=== PATIENT | female | born 1945 | race Caucasian/White ===

== ENCOUNTER → 2017-12-09 16:05 | Outpatient (CLI) | payer MEDICARE, OTHER, SELFPAY ==
[2017-12-09 17:06] LABS: Hemoglobin A1C% w Est Avg Glu 7.2 % (4.0-6.0)
[2017-12-09 17:45] LABS: BUN Creatinine Ratio 31.1 (6-22); Blood Urea Nitrogen 28 mg/dL (7-17); Calcium 9.9 mg/dL (8.4-10.2); Carbon Dioxide 29 mmol/L (22-32); Chloride 98 mmol/L (98-107); Estimated Glomerular Filt Rate > 60.0 mL/min (>60); Glucose 158 mg/dL (80-110); HEMOLYSIS < 15 (0-50); Potassium 4.5 mmol/L (3.4-5.1); Sodium 142 mmol/L (137-145)
== END ==
PROVIDERS: Family Provider Family Medicine; PCP Family Medicine; Visit Provider Family Medicine
DX: E11.9 Type 2 diabetes mellitus without complications (principal)
CPT/HCPCS: 36415; 80048; 83036

== ENCOUNTER → 2018-04-14 15:42 | Outpatient (CLI) | payer MEDICARE, OTHER, SELFPAY ==
[2018-04-14 16:28] LABS: Hemoglobin A1C% w Est Avg Glu 7.5 % (4.0-6.0)
== END ==
PROVIDERS: PCP Family Medicine; Visit Provider Family Medicine
DX: E11.9 Type 2 diabetes mellitus without complications (principal); E78.2 Mixed hyperlipidemia
CPT/HCPCS: 36415; 83036

== ENCOUNTER 2018-06-11 10:05 | Emergency (ER) | payer MEDICARE, OTHER, SELFPAY ==
[2018-06-11 10:15] VITALS: PULSE 65; RESP 18; O2SAT 99
== END 2018-06-11 11:46 | disposition left against medical advice (07) ==
LOC: ED 12:14
PROVIDERS: Family Provider Family Medicine; PCP Family Medicine
DX: R89.9 Unspecified abnormal finding in specimens from other organs, systems and tissues (principal)
CPT/HCPCS: 99281; 99282

== ENCOUNTER → 2018-07-21 15:02 | Outpatient (CLI) | payer MEDICARE, OTHER, SELFPAY ==
[2018-07-21 16:32] LABS: Hemoglobin A1C% w Est Avg Glu 7.9 % (4.0-6.0)
== END ==
PROVIDERS: Family Provider Family Medicine; PCP Family Medicine; Visit Provider Family Medicine
DX: E11.9 Type 2 diabetes mellitus without complications (principal)
CPT/HCPCS: 36415; 83036

== ENCOUNTER → 2018-11-20 16:45 | Outpatient (CLI) | payer MEDICARE, OTHER, SELFPAY ==
[2018-11-20 17:23] LABS: Add Manual Diff / Slide Review NO; Basophils Absolute Auto 0 /uL (0-100); Basophils Percent Auto 0.9 % (0-2); Eosinophils Absolute Auto 200 /uL (0-450); Eosinophils Percent Auto 4.4 % (2-4); Hematocrit 32.7 % (36-46); Hemoglobin 10.4 g/dL (12.0-16.0); Lymphocytes Absolute Auto 1900 /uL (1100-4500); Lymphocytes Percent Auto 36.5 % (25-40); Mean Corpuscular HGB Conc 31.7 % (30-36); Mean Corpuscular Volume 75.7 fL (80-100); Monocytes Absolute Auto 500 /uL (0-900); Monocytes Percent Auto 8.7 % (3-14); Neutrophils Absolute Auto 2600 /uL (1500-7000); Neutrophils Percent Auto 49.5 % (50-75); Platelet Count 263 X10^3/uL (150-400); Red Blood Cell Count 4.33 X10^6/uL (4.0-5.2); Red Cell Distribution Width 18.6 % (11.6-14.8); White Blood Cell Count 5.2 X10^3/uL (4.5-11.0)
[2018-11-20 17:31] LABS: Hemoglobin A1C% w Est Avg Glu 7.3 % (4.0-6.0)
[2018-11-20 17:50] LABS: Alanine Aminotransferase 13 IU/L (9-52); Albumin 4.3 g/dL (3.5-5.0); Albumin Globulin Ratio 1.5 (1.0-2.8); Alkaline Phosphatase 88 U/L (38-126); Aspartate Aminotransferase 20 IU/L (14-36); BUN Creatinine Ratio 24.5 (6-22); Bilirubin Total 0.4 mg/dL (0.2-1.3); Blood Urea Nitrogen 27 mg/dL (7-17); Calcium 8.9 mg/dL (8.4-10.2); Carbon Dioxide 27 mmol/L (22-32); Chloride 98 mmol/L (98-107); Estimated Glomerular Filt Rate 48.6 mL/min (>60); Globulin 2.8 g/dL (1.7-4.1); Glucose 163 mg/dL (80-110); HEMOLYSIS < 15 (0-50); Potassium 4.1 mmol/L (3.4-5.1); Sodium 139 mmol/L (137-145); Total Protein 7.1 g/dL (6.3-8.2)
[2018-11-20 19:01] LABS: Creatinine Urine Random 54.8 mg/dL
[2018-11-20 19:18] LABS: Microalbumin Urine Random 43.9 mg/dL (0-1.6)
== END ==
PROVIDERS: Family Provider Family Medicine; PCP Family Medicine; Visit Provider Family Medicine
DX: E11.9 Type 2 diabetes mellitus without complications (principal); I10 Essential (primary) hypertension; I25.10 Atherosclerotic heart disease of native coronary artery without angina pectoris; I48.91 Unspecified atrial fibrillation; Z87.19 Personal history of other diseases of the digestive system
CPT/HCPCS: 36415; 80053; 82043; 82570; 83036; 85025

== ENCOUNTER 2019-03-24 15:23 | Emergency (ER) | payer MEDICARE, OTHER, SELFPAY ==
[2019-03-24 15:34] VITALS: BP 192/73; PULSE 69; RESP 18; TEMP 36.8; O2SAT 99; BMI 48.6
--- NOTE | 2019-03-24 15:41 | DI.CT.S_ITS ---
PROCEDURE: CT HEAD/BRAIN WO CON INDICATIONS: pain glf TECHNIQUE: Noncontrast 4.5 mm thick angled axial sections acquired from the foramen magnum to the vertex, with coronal and sagittal reformats. For radiation dose reduction, the following was used: automated exposure control, adjustment of mA and/or kV according to patient size. COMPARISON: [facility], CT, HEAD WITHOUT CONTRAST, 07/06/2016, 13:15. FINDINGS: Image quality: Excellent. CSF spaces: Basal cisterns are patent. No extra-axial fluid collections. Ventricles are normal in size and shape. Brain: No midline shift. No intracranial masses or hemorrhage. Saldivar-white matter interface is normal. Skull and face: Calvarium and visualized facial bones are intact, without suspicious lesions. Hyperostosis frontalis is present. Sinuses: Visualized sinuses and mastoids are clear. IMPRESSION: Negative head CT. No acute intracranial hemorrhage. Dictated by: Johnny Pradhan M.D. on 03/24/2019 at 15:08 Approved by: Johnny Pradhan M.D. on 03/24/2019 at 15:09
--- NOTE | 2019-03-24 15:41 | DI.RAD.S_ITS ---
PROCEDURE: XR HAND RT MIN 3V INDICATIONS: pain sp glf TECHNIQUE: 3 views of the hand(s) acquired. COMPARISON: None. FINDINGS: Bones: No fractures or dislocations. Carpal bones are normally aligned. No suspicious bony lesions. Moderate degenerative changes are noted involving the joints of the thumb that are more prominent involving the basal joint. There is moderate ulnar minus variance by approximately 4 mm. Soft tissues: No suspicious soft tissue calcifications. Prominent soft tissue swelling is evident on the dorsal aspect of the hand. No unexpected radiopaque foreign bodies are appreciated. IMPRESSION: 1. No displaced fractures of the hand. 2. Prominent soft tissue swelling on the dorsal aspect of the hand. Dictated by: Johnny Pradhan M.D. on 03/24/2019 at 15:37 Approved by: Johnny Pradhan M.D. on 03/24/2019 at 15:38
--- NOTE | 2019-03-24 15:41 | DI.CT.S_ITS ---
PROCEDURE: CT CERVICAL SPINE WO CON INDICATIONS: glf TECHNIQUE: Noncontrast 3 mm thick sections acquired from the skull base to the T4 level. Sagittal and coronal reformats were then constructed. For radiation dose reduction, the following was used: automated exposure control, adjustment of mA and/or kV according to patient size. COMPARISON: None. FINDINGS: Image quality: Diagnostic. Bones: The cranial cervical, atlantoaxial, and cervicothoracic junctions are adequately visualized and the alignment through these regions is well-maintained. The vertebral body heights are well-maintained. There are no acute fractures or dislocations. No compression deformities are evident. No suspicious osseous lesions are identified. The bone mineralization is within normal limits. Moderate multilevel degenerative changes of the cervical spine are present demonstrating multilevel facet arthrosis (right greater than left) and areas of disc height loss. The odontoid appears intact. The imaged upper thoracic levels and portions of the chest are grossly unremarkable. Soft tissues: Prevertebral soft tissues are normal in thickness. No paravertebral hematomas. No apical pneumothoraces. There is heterogeneity and mild enlargement of the thyroid gland with multiple calcifications. IMPRESSION: 1. No acute intracranial hemorrhage. 2. Moderate degenerative changes of the cervical spine. 3. Heterogeneous thyroid gland. A nonemergent thyroid ultrasound is recommended. Dictated by: Johnny Pradhan M.D. on 03/24/2019 at 15:09 Approved by: Johnny Pradhan M.D. on 03/24/2019 at 15:13
[2019-03-24 16:43] LABS: Add Manual Diff / Slide Review NO; Basophils Absolute Auto 0 /uL (0-100); Basophils Percent Auto 0.6 % (0-2); Eosinophils Absolute Auto 100 /uL (0-450); Eosinophils Percent Auto 1.2 % (2-4); Hematocrit 34.5 % (36-46); Hemoglobin 11.5 g/dL (12.0-16.0); Lymphocytes Absolute Auto 1400 /uL (1100-4500); Lymphocytes Percent Auto 21.8 % (25-40); Mean Corpuscular HGB Conc 33.3 % (30-36); Mean Corpuscular Hemoglobin 26.1 PG (26-34); Mean Corpuscular Volume 78.3 fL (80-100); Monocytes Absolute Auto 500 /uL (0-900); Monocytes Percent Auto 8.3 % (3-14); Neutrophils Absolute Auto 4500 /uL (1500-7000); Neutrophils Percent Auto 68.1 % (50-75); Platelet Count 220 X10^3/uL (150-400); Red Blood Cell Count 4.41 X10^6/uL (4.0-5.2); Red Cell Distribution Width 16.8 % (11.6-14.8); White Blood Cell Count 6.6 X10^3/uL (4.5-11.0)
[2019-03-24] MEDS: TET,DIPH,PERTUSS(ACELL),VAC/PF 0.5 ML SYRINGE IM (17:11)
[2019-03-24] MEDS: HYDROCODONE/ACET 5/325 TABLET 1 TAB PO (17:12)
[2019-03-24 17:21] VITALS: BP 156/62; PULSE 58; RESP 16; O2SAT 97
--- NOTE | 2019-03-24 17:39 | ED.FALL ---
HPI - Fall <Farida Deleon NURSING ATTENDANT-BC - Last Filed: 03/24/19 19:28> General Chief Complaint: Trauma Stated Complaint: fall, R hand swollen, L leg bleeding, hit head Time Seen by Provider: 03/24/19 15:28 Source: patient and family Mode of arrival: Wheelchair Limitations: no limitations History of Present Illness HPI Narrative: The patient is a 74-year-old female nonsmoker with history of atrial fibrillation takes Xarelto who presents for chief complaint of a ground level fall. She states that she was getting out of bed, her foot got stock on the floor and she tipped over. She states she hit her head. She complains of neck pain. She also complains of right hand pain. She states that her left lower leg has a scratch, but she has no pain there. She denies any new incontinence of bowel, incontinence of bladder saddle anesthesia or numbness. She has not taken anything to feel better. She denies any loss of consciousness. She states she felt transiently nauseous earlier, but denies any current nausea vomiting diarrhea dizziness or lightheadedness. Given that the patient came in after hitting her head on a blood thinner, a modified trauma was activated for the patient. Related Data Home Medications Medication Instructions Recorded Confirmed diphenhydramine HCl [Benadryl 50 mg PO QIDP PRN #0 11/13/12 07/21/18 Allergy] CA PANTOTHENATE/FOLIC ACID/VIT 1 tab PO QDAY #0 tab 02/17/13 07/21/18 (MULTIVITAMIN) acetaminophen 1,000 mg PO PRN PRN #0 10/26/16 07/21/18 Previous Rx's Medication Instructions Recorded lidocaine 1 edgar TP BIDP PRN #15 gm 08/17/16 Alcohol Prep Pads pad QID #200 08/24/16 Glucose: Home Monitoring Kit kit ACHS #1 09/15/16 Disabled [address]ing Permit ea #1 12/27/16 Lancets #360 each 10/25/17 aspirin 81 mg tablet,delayed 81 mg PO QDAY #90 tab 10/25/17 release [xyzal] 5 mg PO PRN PRN #30 06/11/18 hydroxyzine HCl 25 mg tablet 0 mg PO SEE INSTRUCTIONS #30 tab 06/11/18 omeprazole 20 mg capsule,delayed 20 mg PO DAILY #7 cap 06/11/18 release Syringes: Ultra Fine Insulin #100 each 02/06/19 Syringe w/Needle True Metrix Glucose: Test Strips #360 each 02/06/19 chlorthalidone 25 mg tablet 25 mg PO QDAY #90 tab 02/06/19 diltiazem HCl 240 mg 240 mg PO QDAY #90 cap 02/06/19 capsule,extended release 24 hr insulin glargine 100 unit/mL 16 unit SUBCUT HS #30 ml 02/06/19 subcutaneous solution metformin 1,000 mg tablet 1,000 mg PO BIDCC #180 tab 02/06/19 metoprolol succinate 50 mg See Rx Instructions PO SEE 02/06/19 tablet,extended release 24 hr INSTRUCTIONS #315 tab primidone 50 mg tablet See Rx Instructions PO BID #90 tab 02/06/19 rivaroxaban 20 mg tablet 20 mg PO QDAY #90 tab 02/06/19 rosuvastatin 20 mg tablet 20 mg PO HS #90 tab 02/06/19 triamterene 75 1 tab PO QDAY #90 tab 02/06/19 mg-hydrochlorothiazide 50 mg tablet hydrocodone-acetaminophen [Stratford] 1 tab PO Q4-6H PRN #7 tab 03/24/19 Allergies Allergy/AdvReac Type Severity Reaction Status Date / Time albuterol Allergy Mild HIVES Verified 03/24/19 15:33 Sulfa (Sulfonamide Allergy Unknown Verified 03/24/19 15:33 Antibiotics) diazepam AdvReac Mild gives pt Verified 03/24/19 15:33 anxiety Review of Systems <aFrida Deleon [facility]- - Last Filed: 03/24/19 19:28> Review of Systems Narrative: GENERAL: Denies chills, fatigue, malaise, fever, sweats. HEENT: Denies sinus pain, ear pain, sore throat, difficulty swallowing, dizziness. RESPIRATORY: Denies dyspnea, cough, wheezing, hemoptysis, sputum. CARDIOVASCULAR: Denies chest pain, palpitations, orthopnea, edema, GASTROINTESTINAL: Denies nausea, vomiting, abdominal pain, diarrhea, constipation, melena. : Denies dysuria, frequency, incontinence, hematuria, urinary retention. MUSCULOSKELETAL: See HPI SKIN: See HPI NEUROLOGIC: Denies weakness, headache, numbness, change in speech, confusion, seizures, incoordination. PSYCHIATRIC: No concerning psychosocial issues. 12 point review of systems is negative except for those stated above Patient History <TOMMY Marquez - Last Filed: 03/24/19 19:28> Medical History Abnormal Pap smear of cervix (Chronic ~1999) Ankle pain (Chronic) Cardiac arrhythmia (Chronic ~1979) Cervical cancer (Chronic ~1999) Chicken pox (Resolved) Coronary artery disease (Chronic ~2007) Diabetes mellitus (Chronic) Eczema (Chronic) Endometriosis (Chronic ~1999) Foot pain (Chronic) GERD (gastroesophageal reflux disease) (Chronic ~1962) GI bleeding (Chronic) Hemorrhoid (Chronic) Hyperlipidemia (Chronic ~1983) Hypertension (Chronic ~1959) Myocardial infarction (Chronic ~09/2014) Osteoarthritis (Chronic) Pulmonary embolism (Chronic ~2014) Shoulder pain (Chronic) Venous insufficiency (Chronic) Surgical History Anesthesia (Resolved) History of angioplasty History of bladder suspension procedure Status post hysterectomy Status post laparoscopic cholecystectomy Surgical procedure planned (Resolved ~2014) Social History pets and animals: No education level: college occupational status: other tatianna/anglican: Moravian travel history: other leisure activities: other other: Watching tv seatbelt use: always water heater temp set < 120 deg: Yes working smoke detector in home: Yes fire extinguisher in home: No carbon monox detector in home: Yes firearms in home: No Smoking Status: Never smoker alcohol intake: never substance use type: does not use during the past year weight has: remained stable well-balanced diet: about half the time daily servings fruits/ve-4 caffeine: No eating out: 1-3 times/week Type(s) of exercise: walking and other duration: 15-30 minutes/day Substance Use Type: does not use Exam <TOMMY Marquez - Last Filed: 03/24/19 19:28> Narrative Exam Narrative: GENERAL: Morbidly obese female sitting on side of stretcher HEAD: Atraumatic. Normocephalic. No temporal or scalp tenderness. EYES: Pupils equal round and reactive. Extraocular motions intact. No scleral icterus. No injection or drainage. ENT: Nose without bleeding, purulent drainage or septal hematoma. Throat without erythema, tonsillar hypertrophy or exudate. Uvula midline. Airway patent. NECK: Trachea midline. No JVD or lymphadenopathy. Supple, nontender, no meningeal signs. CARDIOVASCULAR: Regular rate and rhythm without murmurs, gallops, or rubs. RESPIRATORY: Clear to auscultation. Breath sounds equal bilaterally. No wheezes, rales, or rhonchi. No cough. No increased respiratory effort. No accessory muscle use. GASTROINTESTINAL: Abdomen obese soft, non-tender, nondistended. No hepato-splenomegaly, or palpable masses. No guarding. EXTREMITIES: Pain to palpation of right hand, large hematoma ecchymosis area noted of on dorsal aspect of right hand. Positive radial pulse right hand. Decreased range of motion right fingers. No pain to palpation right wrist or elbow. No snuffbox tenderness to palpation. No pain to palpation of left arm. Patient states that pain bilateral legs baseline. BACK: General pain to palpation of C-spine midline, no pain new thoracic or lumbar spine palpation.. NEURO: AOx3. SKIN: Small abrasion noted on right chung. See extremity exam. Initial Vital Signs Initial Vital Signs: Vital Signs Temperature 98.3 F 03/24/19 15:34 Pulse Rate 69 03/24/19 15:34 Respiratory Rate 18 03/24/19 15:34 Blood Pressure 192/73 H 03/24/19 15:34 Pulse Oximetry 99 03/24/19 15:34 <Benedict Amaya DO - Last Filed: 03/25/19 07:42> Initial Vital Signs Initial Vital Signs: Vital Signs Temperature 98.3 F 03/24/19 15:34 Pulse Rate 69 03/24/19 15:34 Respiratory Rate 18 03/24/19 15:34 Blood Pressure 192/73 H 03/24/19 15:34 Pulse Oximetry 99 03/24/19 15:34 Procedures <TOMMY Marquez - Last Filed: 03/24/19 19:28> Orthopedic Splinting/Casting Injury #1: Side: right Upper Extremity Injury Location: hand Upper Extremity Immobilizer: wrist splint (black brace) Post splinting neuro exam: intact Post splinting vascular exam: intact Placed by: Nursing Course <TOMMY Marquez - Last Filed: 03/24/19 19:28> Orders Ordered: Discontinued Medications Hydrocodone Bitart/Acetaminophen (Stratford 5/325) 1 tab PO NOW ONE Stop: 03/24/19 17:04 Last Admin: 03/24/19 17:12 Dose: 1 tab Documented by: PAXTONSENLydia Hydrocodone Bitart/Acetaminophen (Vicodin Prepack) 1 bottle MISC SEEINSTR ONE Stop: 03/24/19 17:52 Last Admin: 03/24/19 18:00 Dose: 1 bottle Documented by: MEISENB Diphtheria/Tetanus/Acell Pertussis (Adacel) 0.5 ml IM .ONCE ONE Stop: 03/24/19 17:04 Last Admin: 03/24/19 17:11 Dose: 0.5 ml Documented by: PAXTONSENLydia Vital Signs Vital signs: Vital Signs - 8 hr 03/24/19 15:34 03/24/19 17:21 Temperature 98.3 F Pulse Rate 69 58 L Respiratory Rate 18 16 Blood Pressure 192/73 H Blood Pressure [Left Arm] 156/62 H Pulse Oximetry 99 97 <Benedict Amaya DO - Last Filed: 03/25/19 07:42> Orders Ordered: Discontinued Medications Hydrocodone Bitart/Acetaminophen (Stratford 5/325) 1 tab PO NOW ONE Stop: 03/24/19 17:04 Last Admin: 03/24/19 17:12 Dose: 1 tab Documented by: MEISENB Hydrocodone Bitart/Acetaminophen (Vicodin Prepack) 1 bottle MISC SEEINSTR ONE Stop: 03/24/19 17:52 Last Admin: 03/24/19 18:00 Dose: 1 bottle Documented by: MEISENB Diphtheria/Tetanus/Acell Pertussis (Adacel) 0.5 ml IM .ONCE ONE Stop: 03/24/19 17:04 Last Admin: 03/24/19 17:11 Dose: 0.5 ml Documented by: MEISENB Vital Signs Vital signs: Vital Signs - 8 hr 03/24/19 15:34 03/24/19 17:21 Temperature 98.3 F Pulse Rate 69 58 L Respiratory Rate 18 16 Blood Pressure 192/73 H Blood Pressure [Left Arm] 156/62 H Pulse Oximetry 99 97 MDM - Fall <TOMMY Marquez - Last Filed: 03/24/19 19:28> Lab Data Result diagrams: 03/24/19 16:42 Labs: Lab Results 03/24/19 Range/Units 16:42 WBC 6.6 (4.5-11.0) X10^3/uL RBC 4.41 (4.0-5.2) X10^6/uL Hgb 11.5 L (12.0-16.0) g/dL Hct 34.5 L (36-46) % MCV 78.3 L (80-100) fL MCH 26.1 (26-34) PG MCHC 33.3 (30-36) % RDW 16.8 H (11.6-14.8) % Plt Count 220 (150-400) X10^3/uL Neut % (Auto) 68.1 (50-75) % Lymph % (Auto) 21.8 L (25-40) % [place] % (Auto) 8.3 (3-14) % Eos % (Auto) 1.2 L (2-4) % Baso % (Auto) 0.6 (0-2) % Neut # (Auto) 4500 (0249-1634) /uL Lymph # (Auto) 1400 (7918-1904) /uL [place] # (Auto) 500 (0-900) /uL Eos # (Auto) 100 (0-450) /uL Baso # (Auto) 0 (0-100) /uL Imaging Data CT scan - head: Radiologist's impression: Dorcas Clement S 74 [address] 1945 [place] [address] CT Scan Report Signed Patient: Dorcas Clement [facility]#: [id number] : [id number]:[id number] Age/Sex: 74 / FDate of Service: 03/24/19 Loc: ED Accession Number: [id number] Procedure: CT head/brain wo con Ordering Provider: Farida Deleon PROCEDURE: CT HEAD/BRAIN WO CON INDICATIONS: pain glf TECHNIQUE: Noncontrast 4.5 mm thick angled axial sections acquired from the foramen magnum to the vertex, with coronal and sagittal reformats. For radiation dose reduction, the following was used: automated exposure control, adjustment of mA and/or kV according to patient size. COMPARISON: [facility], CT, HEAD WITHOUT CONTRAST, 07/06/2016, 13:15. FINDINGS: Image quality: Excellent. CSF spaces: Basal cisterns are patent. No extra-axial fluid collections. Ventricles are normal in size and shape. Brain: No midline shift. No intracranial masses or hemorrhage. Saldivar-white matter interface is normal. Skull and face: Calvarium and visualized facial bones are intact, without suspicious lesions. Hyperostosis frontalis is present. Sinuses: Visualized sinuses and mastoids are clear. IMPRESSION: Negative head CT. No acute intracranial hemorrhage. Dictated by: Johnny Pradhan M.D. on 03/24/2019 at 15:08 Approved by: Johnny Pradhan M.D. on 03/24/2019 at 15:09 Hand x-ray: Radiologist's impression: [place] [address] XRay Report Signed Patient: Dorcas Clement [facility]#: [id number] : [id number]:[id number] Age/Sex: 74 / FDate of Service: 03/24/19 Loc: ED Accession Number: [id number] Procedure: XR hand RT min 3V Ordering Provider: Farida Deleon- PROCEDURE: XR HAND RT MIN 3V INDICATIONS: pain sp glf TECHNIQUE: 3 views of the hand(s) acquired. COMPARISON: None. FINDINGS: Bones: No fractures or dislocations. Carpal bones are normally aligned. No suspicious bony lesions. Moderate degenerative changes are noted involving the joints of the thumb that are more prominent involving the basal joint. There is moderate ulnar minus variance by approximately 4 mm. Soft tissues: No suspicious soft tissue calcifications. Prominent soft tissue swelling is evident on the dorsal aspect of the hand. No unexpected radiopaque foreign bodies are appreciated. IMPRESSION: 1. No displaced fractures of the hand. 2. Prominent soft tissue swelling on the dorsal aspect of the hand. Dictated by: Johnny Pradhan M.D. on 03/24/2019 at 15:37 Approved by: Johnny Pradhan M.D. on 03/24/2019 at 15:38 CT C-spine: Radiologist's impression: [address] [address] [address] Scan Report Signed Patient: Dorcas Clement [facility]#: [id number] : 4Acct:[id number] Age/Sex: 74 / FDate of Service: 03/24/19 Loc: ED Accession Number: [id number] Procedure: CT cervical spine wo con Ordering Provider: Farida Deleon PROCEDURE: CT CERVICAL SPINE WO CON INDICATIONS: glf TECHNIQUE: Noncontrast 3 mm thick sections acquired from the skull base to the T4 level. Sagittal and coronal reformats were then constructed. For radiation dose reduction, the following was used: automated exposure control, adjustment of mA and/or kV according to patient size. COMPARISON: None. FINDINGS: Image quality: Diagnostic. Bones: The cranial cervical, atlantoaxial, and cervicothoracic junctions are adequately visualized and the alignment through these regions is well-maintained. The vertebral body heights are well-maintained. There are no acute fractures or dislocations. No compression deformities are evident. No suspicious osseous lesions are identified. The bone mineralization is within normal limits. Moderate multilevel degenerative changes of the cervical spine are present demonstrating multilevel facet arthrosis (right greater than left) and areas of disc height loss. The odontoid appears intact. The imaged upper thoracic levels and portions of the chest are grossly unremarkable. Soft tissues: Prevertebral soft tissues are normal in thickness. No paravertebral hematomas. No apical pneumothoraces. There is heterogeneity and mild enlargement of the thyroid gland with multiple calcifications. IMPRESSION: 1. No acute intracranial hemorrhage. 2. Moderate degenerative changes of the cervical spine. 3. Heterogeneous thyroid gland. A nonemergent thyroid ultrasound is recommended. Dictated by: Johnny Pradhan M.D. on 03/24/2019 at 15:09 Approved by: Johnny Pradhan M.D. on 03/24/2019 at 15:13 [facility] Narrative Medical decision making narrative: 74-year-old female blood thinners who presents after ground level fall and hitting her head. Modified trauma was activated given the patient's mechanism of injury and comorbidities. The patient did complain C-spine tenderness to palpation, so she was placed in a cervical collar. Imaging is obtained Ash, C-spine and her hand. Of her imaging came back with no acute findings. Patient was given Stratford and her hand was placed in a supportive brace given the large hematoma. I discussed at length rest ice compression elevation. I did give her no cough in the emergency department, which helped her pain a bit. Given the abrasion on the leg, the patient's tetanus was updated. The patient was able to ambulate around the emergency department after. She was discharged home with her family. I discussed at length that Stratford can be constipating and sedating, can increased fall risk. Discussed incidental finding of thyroid calcification and encouraged PCP follow-up. Encourage PCP follow-up in the next few days. She has no questions or concerns upon discharge and states understanding of return precautions of any acute concerns as well as following up with PCP in a few days. <Benedict Amaya, DO - Last Filed: 03/25/19 07:42> Lab Data Labs: Lab Results 03/24/19 Range/Units 16:42 WBC 6.6 (4.5-11.0) X10^3/uL RBC 4.41 (4.0-5.2) X10^6/uL Hgb 11.5 L (12.0-16.0) g/dL Hct 34.5 L (36-46) % MCV 78.3 L (80-100) fL MCH 26.1 (26-34) PG MCHC 33.3 (30-36) % RDW 16.8 H (11.6-14.8) % Plt Count 220 (150-400) X10^3/uL Neut % (Auto) 68.1 (50-75) % Lymph % (Auto) 21.8 L (25-40) % [place] % (Auto) 8.3 (3-14) % Eos % (Auto) 1.2 L (2-4) % Baso % (Auto) 0.6 (0-2) % Neut # (Auto) 4500 (5146-4652) /uL Lymph # (Auto) 1400 (9573-6436) /uL [place] # (Auto) 500 (0-900) /uL Eos # (Auto) 100 (0-450) /uL Baso # (Auto) 0 (0-100) /uL Discharge Plan Departure Patient Disposition: Home Clinical Impression: Fall from ground level, Hematoma, Acute neck pain Contusion Qualifiers: Encounter type: initial encounter Contusion area: hand Laterality: right Qualified Code(s): S60.221A - Contusion of right hand, initial encounter Discharge Date/Time: 03/24/19 18:29 Instructions: Exercises to Help Prevent Falls, DI for Contusion, DI for Hematoma (Bruise), DI for Neck Pain Activity Restrictions/Additional Instructions: Thank you for trusting us with your care today. Today we did x-rays of your hand, CT scan of your neck and head. All of your images came back normal today. Please use rest ice compression elevation especially on that large bruise on her hand. Please come back to emergency department for any acute concerns. Please follow up with primary care provider in the next few days Prescriptions: New hydrocodone-acetaminophen [Stratford] 5-325 mg tablet 1 tab PO Q4-6H PRN (Reason: pain) Qty: 7 RF: 0 No Action hydroxyzine HCl 25 mg tablet 0 mg PO SEE INSTRUCTIONS Qty: 30 RF: 0 omeprazole 20 mg capsule,delayed release(DR/EC) 20 mg PO DAILY Qty: 7 RF: 0 [xyzal] 5 mg PO PRN PRN (Reason: allergies) Qty: 30 RF: 0 diphenhydramine HCl [Benadryl Allergy] 25 MG tablet 50 mg PO QIDP PRNQty: 0 RF: 0 CA PANTOTHENATE/FOLIC ACID/VIT (MULTIVITAMIN) 1 tab PO QDAY Qty: 0 RF: 0 lidocaine 15 GM cream 1 edgar TP BIDP PRNQty: 15 RF: 1 Alcohol Prep Pads QID Qty: 200 RF: 11 Glucose: Home Monitoring Kit ACHS Qty: 1 RF: 0 acetaminophen 500 MG tablet 1,000 mg PO PRN PRNQty: 0 RF: 0 Disabled Parking Permit Qty: 1 RF: 0 aspirin 81 mg tablet,delayed release (DR/EC) 81 mg PO QDAY Qty: 90 RF: 3 (DME) Lancets 0 .Route .MEDSUPPLY Qty: 360 RF: 3 chlorthalidone 25 mg tablet 25 mg PO QDAY Qty: 90 RF: 3 diltiazem HCl [Cartia XT] 240 mg capsule,extended release 24hr 240 mg PO QDAY Qty: 90 RF: 3 Lantus U-100 Insulin 100 unit/mL solution 16 unit SUBCUT HS Qty: 30 RF: 3 metformin [Glucophage] 1,000 mg tablet 1,000 mg PO BIDCC Qty: 180 RF: 3 metoprolol succinate [Toprol XL] 50 mg tablet extended release 24 hr See Rx Instructions PO SEE INSTRUCTIONS Qty: 315 RF: 3 primidone [Mysoline] 50 mg tablet See Rx Instructions PO BID Qty: 90 RF: 3 Xarelto 20 mg tablet 20 mg PO QDAY Qty: 90 RF: 3 rosuvastatin 20 mg tablet 20 mg PO HS Qty: 90 RF: 3 (DME) Syringes: Ultra Fine Insulin Syringe w/Needle 0 .Route .MEDSUPPLY Qty: 100 RF: 3 triamterene-hydrochlorothiazid [Maxzide] 75-50 mg tablet 1 tab PO QDAY Qty: 90 RF: 3 (DME) True Metrix Glucose: Test Strips 0 .Route .MEDSUPPLY Qty: 360 RF: 3 Referrals: Idania Bruno DO [Primary Care Provider] -
[2019-03-24] MEDS: HYDROCODONE/ACET 5/325 PREPACK 1 BOTTLE MISC (18:00)
== END 2019-03-24 18:29 | disposition home or self-care (01) ==
PROVIDERS: Emergency Provider Nurse Practitioner Family; Family Provider Family Medicine; PCP Family Medicine
DX: S09.90XA Unspecified injury of head, initial encounter (principal); M54.2 Cervicalgia; S60.221A Contusion of right hand, initial encounter; S80.812A Abrasion, left lower leg, initial encounter; E11.9 Type 2 diabetes mellitus without complications; Z79.4 Long term (current) use of insulin; Z79.01 Long term (current) use of anticoagulants; W06.XXXA Fall from bed, initial encounter; T14.8XXA Other injury of unspecified body region, initial encounter; Z23 Encounter for immunization
CPT/HCPCS: 29260; 36415; 70450; 72125; 73130; 85025; 90471; 99283; 99284; 90715

== ENCOUNTER → 2019-04-02 11:12 | Outpatient (CLI) | payer MEDICARE, OTHER, SELFPAY ==
--- NOTE | 2019-04-02 11:20 | DI.RAD.S_ITS ---
PROCEDURE: XR WRIST RT MIN 3V INDICATIONS: recent fall, right hand pain and swelling TECHNIQUE: 4 views of the wrist were acquired. COMPARISON: [facility], CR, XR HAND RT MIN 3V, 04/02/2019, 11:49. [facility], CR, XR HAND RT MIN 3V, 03/24/2019, 15:57. FINDINGS: Bones: No fractures or dislocations. No suspicious bony lesions. Scaphoid view: No trauma. Soft tissues: No suspicious soft tissue calcifications. IMPRESSION: Moderately severe osteoarthritis base of the first metacarpal, no trauma found. Dictated by: Chris Gutierrez M.D. on 04/02/2019 at 12:31 Approved by: Chris Gutierrez M.D. on 04/02/2019 at 12:31
--- NOTE | 2019-04-02 11:20 | DI.RAD.S_ITS ---
PROCEDURE: XR HAND RT MIN 3V INDICATIONS: recent fall, right hand pain and swelling TECHNIQUE: 3 views of the hand(s) acquired. COMPARISON: [facility], CR, XR WRIST RT MIN 3V, 04/02/2019, 11:52. [facility], CR, XR HAND RT MIN 3V, 03/24/2019, 15:57. FINDINGS: Bones: No fractures or dislocations. Carpal bones are normally aligned. No suspicious bony lesions. Soft tissues: No suspicious soft tissue calcifications. IMPRESSION: No trauma. Previously present degenerative osteoarthritis is again noted to be moderately severe at the base of the first metacarpal and present to a slightly lesser degree along the distal interphalangeal joints. Dictated by: Chris Gutierrez M.D. on 04/02/2019 at 12:30 Approved by: Chris Gutierrez M.D. on 04/02/2019 at 12:31
[2019-04-02 12:25] LABS: Add Manual Diff / Slide Review NO; Basophils Absolute Auto 100 /uL (0-100); Basophils Percent Auto 1.2 % (0-2); Eosinophils Absolute Auto 200 /uL (0-450); Eosinophils Percent Auto 3.4 % (2-4); Hematocrit 31.3 % (36-46); Hemoglobin 10.5 g/dL (12.0-16.0); Lymphocytes Absolute Auto 1400 /uL (1100-4500); Lymphocytes Percent Auto 25.7 % (25-40); Mean Corpuscular HGB Conc 33.4 % (30-36); Mean Corpuscular Hemoglobin 26.6 PG (26-34); Mean Corpuscular Volume 79.6 fL (80-100); Monocytes Absolute Auto 500 /uL (0-900); Monocytes Percent Auto 8.5 % (3-14); Neutrophils Absolute Auto 3300 /uL (1500-7000); Neutrophils Percent Auto 61.2 % (50-75); Platelet Count 243 X10^3/uL (150-400); Red Blood Cell Count 3.93 X10^6/uL (4.0-5.2); White Blood Cell Count 5.3 X10^3/uL (4.5-11.0)
[2019-04-02 13:07] LABS: Hemoglobin A1C% w Est Avg Glu 7.4 % (4.0-6.0)
[2019-04-02 13:08] LABS: Alanine Aminotransferase 13 IU/L (<35); Albumin 4.2 g/dL (3.5-5.0); Albumin Globulin Ratio 1.6 (1.0-2.8); Alkaline Phosphatase 91 U/L (38-126); Aspartate Aminotransferase 28 IU/L (14-36); BUN Creatinine Ratio 23.3 (6-22); Bilirubin Total 0.5 mg/dL (0.2-1.3); Blood Urea Nitrogen 28 mg/dL (7-17); Calcium 9.8 mg/dL (8.4-10.2); Carbon Dioxide 32 mmol/L (22-32); Chloride 93 mmol/L (98-107); Estimated Glomerular Filt Rate 43.8 mL/min (>60); Globulin 2.7 g/dL (1.7-4.1); Glucose 141 mg/dL (80-110); HEMOLYSIS < 15 (0-50); Potassium 4.2 mmol/L (3.4-5.1); Sodium 136 mmol/L (137-145); Total Protein 6.9 g/dL (6.3-8.2)
== END ==
PROVIDERS: PCP Family Medicine; Visit Provider Family Medicine
DX: M79.641 Pain in right hand (principal); M19.041 Primary osteoarthritis, right hand; E11.9 Type 2 diabetes mellitus without complications; G25.0 Essential tremor
CPT/HCPCS: 36415; 73110; 73130; 80053; 83036; 85025

== ENCOUNTER → 2019-12-07 15:40 | Outpatient (CLI) | payer MEDICARE, OTHER, SELFPAY ==
[2019-12-07 17:06] LABS: Add Manual Diff / Slide Review NO; Basophils Absolute Auto 0 /uL (0-100); Basophils Percent Auto 0.7 % (0-2); Eosinophils Absolute Auto 200 /uL (0-450); Eosinophils Percent Auto 3.5 % (2-4); Hematocrit 33.6 % (36-46); Hemoglobin 10.9 g/dL (12.0-16.0); Hemoglobin A1C% w Est Avg Glu 6.1 % (4.0-6.0); Lymphocytes Absolute Auto 1900 /uL (1100-4500); Lymphocytes Percent Auto 36.6 % (25-40); Mean Corpuscular HGB Conc 32.4 % (30-36); Mean Corpuscular Hemoglobin 27.1 PG (26-34); Mean Corpuscular Volume 83.6 fL (80-100); Monocytes Absolute Auto 500 /uL (0-900); Monocytes Percent Auto 9.1 % (3-14); Neutrophils Absolute Auto 2600 /uL (1500-7000); Neutrophils Percent Auto 50.1 % (50-75); Platelet Count 260 X10^3/uL (150-400); Red Blood Cell Count 4.02 X10^6/uL (4.0-5.2); Red Cell Distribution Width 14.9 % (11.6-14.8); White Blood Cell Count 5.3 X10^3/uL (4.5-11.0)
[2019-12-07 17:31] LABS: Alanine Aminotransferase 15 IU/L (<35); Albumin 4.5 g/dL (3.5-5.0); Albumin Globulin Ratio 1.4 (1.0-2.8); Alkaline Phosphatase 79 U/L (38-126); Aspartate Aminotransferase 27 IU/L (14-36); BUN Creatinine Ratio 19.9 (6-22); Bilirubin Total 0.4 mg/dL (0.2-1.3); Blood Urea Nitrogen 27 mg/dL (7-17); Calcium 9.8 mg/dL (8.4-10.2); Carbon Dioxide 22 mmol/L (22-32); Chloride 104 mmol/L (98-107); Estimated Glomerular Filt Rate 37.9 mL/min (>60); Globulin 3.2 g/dL (1.7-4.1); Glucose 115 mg/dL (80-110); HEMOLYSIS < 15 (0-50); Potassium 4.1 mmol/L (3.4-5.1); Sodium 141 mmol/L (137-145); Total Protein 7.7 g/dL (6.3-8.2)
[2019-12-07 18:20] LABS: Creatinine Urine Random 120.2 mg/dL
[2019-12-07 18:56] LABS: Microalbumi Creatinin Ratio Ur 612.3 ug/mg CR (<30); Microalbumin Urine Random 73.6 mg/dL (0-1.6)
== END ==
PROVIDERS: PCP Family Medicine; Referring Provider Family Medicine; Visit Provider Family Medicine
DX: E11.9 Type 2 diabetes mellitus without complications (principal); D64.9 Anemia, unspecified
CPT/HCPCS: 36415; 80053; 82043; 82570; 83036; 85025

== ENCOUNTER → 2020-03-20 15:41 | Outpatient (CLI) | payer MEDICARE, OTHER, SELFPAY ==
[2020-03-20 17:00] LABS: BUN Creatinine Ratio 21.7 (6-22); Blood Urea Nitrogen 26 mg/dL (7-17); Calcium 9.3 mg/dL (8.4-10.2); Carbon Dioxide 32 mmol/L (22-32); Chloride 99 mmol/L (98-107); Estimated Glomerular Filt Rate 43.7 mL/min (>60); Glucose 124 mg/dL (80-110); HEMOLYSIS < 15 (0-50); Hemoglobin A1C% w Est Avg Glu 6.9 % (4.0-6.0); Potassium 3.9 mmol/L (3.4-5.1); Sodium 138 mmol/L (137-145)
[2020-03-20 17:50] LABS: Vitamin B12 232 pg/mL (239-931)
== END ==
PROVIDERS: PCP Family Medicine; Referring Provider Family Medicine; Visit Provider Family Medicine
DX: E11.9 Type 2 diabetes mellitus without complications (principal)
CPT/HCPCS: 36415; 80048; 82607; 83036

== ENCOUNTER 2021-02-06 12:34 | Emergency (ER) | payer MEDICARE, OTHER, SELFPAY ==
[2021-02-06 12:50] VITALS: BP 133/83; PULSE 64; RESP 15; TEMP 36.4; O2SAT 100; BMI 49.2
--- NOTE | 2021-02-06 13:04 | ED.HA ---
HPI - Headache General Chief Complaint: Headache Stated Complaint: Migraine for 5 days- reffered by because of hx Time Seen by Provider: 02/06/21 12:39 Mode of arrival: Family Vehicle Limitations: no limitations History of Present Illness HPI Narrative: Patient is a 75-year-old female history of atrial fibrillation on Xarelto and history of headaches presents today with 5 days of a headache. She states that it is behind the left eye. She has no visual changes it is just not going away. She is stumbling a little bit more but no falls. She walks with a walker or cane at baseline she has been able to do this. She has been taking Tylenol without much relief with the pain. No nausea or vomiting. No new numbness tingling or weakness. Sometimes sensitive to light but not currently Related Data Home Medications Medication Instructions Recorded Confirmed diphenhydramine HCl 25 mg tablet 50 mg PO QIDP PRN #0 11/13/12 12/27/19 (Benadryl Allergy) CA PANTOTHENATE/FOLIC ACID/VIT 1 tab PO QDAY #0 tab 02/17/13 12/27/19 (MULTIVITAMIN) acetaminophen 500 mg tablet 1,000 mg PO PRN PRN #0 10/26/16 12/27/19 Previous Rx's Medication Instructions Recorded lidocaine 5 % topical cream 1 edgar TP BIDP PRN #15 gm 08/17/16 Alcohol Prep Pads pad QID #200 08/24/16 Disabled Parking Permit ea #1 12/27/16 Lancets #360 each 10/25/17 aspirin 81 mg tablet,delayed 81 mg PO QDAY #90 tab 10/25/17 release [xyzal] 5 mg PO PRN PRN #30 06/11/18 omeprazole 10 mg capsule,delayed 10 mg PO BID #30 cap 12/07/19 release Syringes: Ultra Fine Insulin #100 each 02/22/20 Syringe w/Needle True Metrix Glucose: Test Strips #360 each 02/22/20 chlorthalidone 25 mg tablet 25 mg PO QDAY #90 tab 02/22/20 diltiazem HCl 240 mg 240 mg PO QDAY #90 cap 02/22/20 capsule,extended release 24 hr (Cartia XT) hydroxyzine HCl 25 mg tablet 25 mg PO BID PRN #180 tab 02/22/20 metformin 1,000 mg tablet 1,000 mg PO BIDCC #180 tab 02/22/20 (Glucophage) metoprolol succinate 50 mg See Rx Instructions PO SEE 02/22/20 tablet,extended release 24 hr INSTRUCTIONS #315 tab (Toprol XL) primidone 50 mg tablet (Mysoline) See Rx Instructions PO BID #270 tab 02/22/20 rivaroxaban 20 mg tablet (Xarelto) 20 mg PO QDAY #90 tab 02/22/20 rosuvastatin 20 mg tablet 20 mg PO HS #90 tab 02/22/20 insulin glargine 100 unit/mL 15 unit SUBCUT HS #30 ml 06/04/20 subcutaneous solution (Lantus U-100 Insulin) Allergies Allergy/AdvReac Type Severity Reaction Status Date / Time albuterol Allergy Mild HIVES Verified 02/06/21 12:53 Sulfa (Sulfonamide Allergy Unknown Verified 02/06/21 12:53 Antibiotics) diazepam AdvReac Mild gives pt Verified 02/06/21 12:53 anxiety Review of Systems Review of Systems Narrative: GENERAL: Denies chills, fatigue, malaise, fever, sweats, travel HEENT: Denies sinus pain, ear pain, sore throat, difficulty swallowing, neck pain RESPIRATORY: Denies dyspnea, cough, wheezing, hemoptysis, sputum. CARDIOVASCULAR: Denies chest pain, palpitations, orthopnea, edema GASTROINTESTINAL: Denies nausea, vomiting, abdominal pain, diarrhea, constipation, melena. : Denies dysuria, frequency, incontinence, hematuria, urinary retention, flank pain. MUSCULOSKELETAL: Denies weakness, joint pain, or bony pain SKIN: No rash, no erythema, no pruritus NEUROLOGIC: Left see HPI PSYCHIATRIC: No concerning psychosocial issues. 12 point review of systems is negative except for those stated above and HPI Patient History Medical History (Updated 02/06/21 @ 14:13 by Lorie Mills DO) Abnormal Pap smear of cervix (~1999) Ankle pain B12 deficiency Cardiac arrhythmia (~1979) Cervical cancer (~1999) Chicken pox CKD (chronic kidney disease) Coronary artery disease (~2007) Diabetes mellitus Eczema Endometriosis (~1999) Foot pain GERD (gastroesophageal reflux disease) (~1962) GI bleeding Hemorrhoid Hyperlipidemia (~1983) Hypertension (~1959) Myocardial infarction (~09/2014) Osteoarthritis Pulmonary embolism (~2014) Shoulder pain Venous insufficiency Surgical History Anesthesia History of angioplasty History of bladder suspension procedure Status post hysterectomy Status post laparoscopic cholecystectomy Surgical procedure planned (~2014) Social History pets and animals: No education level: college occupational status: other 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: [employer] travel history: other leisure activities: other other: Watching tv seatbelt use: always water heater temp set < 120 deg: Yes working smoke detector in home: Yes fire extinguisher in home: No carbon monox detector in home: Yes firearms in home: No Smoking Status: Never smoker alcohol intake: never substance use type: does not use during the past year weight has: remained stable well-balanced diet: about half the time daily servings fruits/ve-4 caffeine: No eating out: 1-3 times/week Type(s) of exercise: walking and other duration: 15-30 minutes/day Smoking Status: Never smoker alcohol intake frequency: holidays/special occasions only Substance Use Type: does not use Exam Initial Vital Signs Initial Vital Signs: Vital Signs Temperature 97.5 F L 02/06/21 12:50 Pulse Rate 64 02/06/21 12:50 Respiratory Rate 15 02/06/21 12:50 Blood Pressure 133/83 02/06/21 12:50 Pulse Oximetry 100 02/06/21 12:50 GENERAL: Alert 75-year-old female sitting in wheelchair in [no acute] distress. HEENT: Head atraumatic,EOMI, pupils reactive, face symmetric, [moist] mucous membranes CARDIOVASCULAR: Regular rate and rhythm without murmurs, rubs or gallops. RESPIRATORY: Breath sounds equal bilaterally, no wheezes rales or rhonchi. ABDOMEN: Soft, nontender. Normoactive bowel sounds all 4 quadrants. No guarding or rebound. EXTREMITIES: Normal range of motion, no clubbing or edema. Neurovascularly intact NEUROLOGICAL: Alert and oriented x4.Normal gait and speech. Cranial nerves II through XII grossly intact. Client Support Consultant strength equal bilaterally SKIN: Warm, dry, no laceration, no petechiae, no rashes or lesions. Scores NIH Stroke Scale Level of Conciousness: Alert, keenly responsive Ask month/age: Answers both questions correctly. Open/close eyes, close hand: Performs both tasks correctly Best gaze horizontal: Normal Visual [place]: No visual loss Facial palsy: Normal symetrical movement Left arm drift: No drift for full 10 sec Right arm drift: No drift for full 10 sec Left leg drift: No drift for full 5 sec Right leg drift: No drift for full 5 sec Limb ataxia: Absent Sensory on face/arms/legs: Normal, no sensory loss Best language: No aphasia, normal Dysarthria: Normal Extinction or inattention: No abnormality Total NIH Stroke scale score: 0 Course Orders Ordered: ED Orders 02/06/21 13:39 CT head/brain wo con Stat Vital Signs Vital signs: Vital Signs - 8 hr 02/06/21 12:50 02/06/21 14:24 Temperature 97.5 F L Pulse Rate 64 65 Respiratory Rate 15 17 Blood Pressure 133/83 188/75 H Pulse Oximetry 100 99 MDM - Headache Imaging Data CT scan - head: Radiologist's Impression: PROCEDURE:? CT HEAD/BRAIN WO CON ? INDICATIONS:? headache x 5 days on xeralto ? TECHNIQUE:? Noncontrast 4.5 mm thick angled axial sections acquired from the foramen magnum to the vertex, with coronal and sagittal reformats.? For radiation dose reduction, the following was used:? automated exposure control, adjustment of mA and/or kV according to patient size.? ? COMPARISON:? [facility], CT, CT HEAD/BRAIN WO CON, 03/24/2019, 15:49. ? FINDINGS:? Image quality:? Excellent.? ? CSF spaces:? Basal cisterns are patent.? No extra-axial fluid collections.? The ventricles are symmetric in size and shape.? ? Brain:? No intracranial bleeds or masses.? There is cerebral volume loss for age, with resultant ventricular and sulcal prominence.? There are periventricular and deep white matter chronic small vessel ischemic changes.? There is intracranial internal carotid artery atherosclerosis.? ? Skull and face:? Calvarium and visualized facial bones appear intact, without suspicious lesions.? ? Sinuses:? Visualized sinuses and mastoids are clear.? ? IMPRESSION:? ? 1. No acute intracranial process. ? 2. Mild to moderate atrophy and chronic microvascular ischemic changes. ? ? Dictated by: Aaliyah Alonso M.D. on 02/06/2021 at 13:58 ?? [facility] Narrative Medical decision making narrative: Patient overall appears very well in the emergency department. Head CT is negative she has no focal deficits. She does not want anything for pain. At this time recommend outpatient follow-up. Discharge Plan Departure Patient Disposition: Home Clinical Impression: Headache Instructions: DI for Headache Activity Restrictions/Additional Instructions: *You have been diagnosed with headache *What to do: At this time CT scan is negative. *Continue to take medications as directed Tylenol 1000 mg every 6 hours if needed for pain *Follow up with your primary care provider in 2-3 days *Return to ER if you should have increasing weakness, falls, dizziness or any new, worsening or concerning symptoms Prescriptions: No Action [xyzal] 5 mg PO PRN PRN (Reason: allergies) Qty: 30 RF: 0 omeprazole 10 mg capsule,delayed release(DR/EC) 10 mg PO BID Qty: 30 RF: 0 diphenhydramine HCl [Benadryl Allergy] 25 MG tablet 50 mg PO QIDP PRNQty: 0 RF: 0 CA PANTOTHENATE/FOLIC ACID/VIT (MULTIVITAMIN) 1 tab PO QDAY Qty: 0 RF: 0 lidocaine 15 GM cream 1 edgar TP BIDP PRNQty: 15 RF: 1 Alcohol Prep Pads QID Qty: 200 RF: 11 acetaminophen 500 MG tablet 1,000 mg PO PRN PRNQty: 0 RF: 0 Disabled Parking Permit Qty: 1 RF: 0 aspirin 81 mg tablet,delayed release (DR/EC) 81 mg PO QDAY Qty: 90 RF: 3 (DME) Lancets 0 .Route .MEDSUPPLY Qty: 360 RF: 3 chlorthalidone 25 mg tablet 25 mg PO QDAY Qty: 90 RF: 3 diltiazem HCl [Cartia XT] 240 mg capsule,extended release 24hr 240 mg PO QDAY Qty: 90 RF: 3 metformin [Glucophage] 1,000 mg tablet 1,000 mg PO BIDCC Qty: 180 RF: 3 metoprolol succinate [Toprol XL] 50 mg tablet extended release 24 hr See Rx Instructions PO SEE INSTRUCTIONS Qty: 315 RF: 3 hydroxyzine HCl 25 mg tablet 25 mg PO BID PRN (Reason: anxiety) Qty: 180 RF: 3 Xarelto 20 mg tablet 20 mg PO QDAY Qty: 90 RF: 3 primidone [Mysoline] 50 mg tablet See Rx Instructions PO BID Qty: 270 RF: 3 (DME) True Metrix Glucose: Test Strips 0 .Route .MEDSUPPLY Qty: 360 RF: 3 rosuvastatin 20 mg tablet 20 mg PO HS Qty: 90 RF: 3 (DME) Syringes: Ultra Fine Insulin Syringe w/Needle 0 .Route .MEDSUPPLY Qty: 100 RF: 3 Lantus U-100 Insulin 100 unit/mL solution 15 unit SUBCUT HS Qty: 30 RF: 3 Referrals: Idania Bruno DO [Primary Care Provider] -
--- NOTE | 2021-02-06 13:39 | DI.CT.S_ITS ---
PROCEDURE: CT HEAD/BRAIN WO CON INDICATIONS: headache x 5 days on xeralto TECHNIQUE: Noncontrast 4.5 mm thick angled axial sections acquired from the foramen magnum to the vertex, with coronal and sagittal reformats. For radiation dose reduction, the following was used: automated exposure control, adjustment of mA and/or kV according to patient size. COMPARISON: [facility], CT, CT HEAD/BRAIN WO CON, 03/24/2019, 15:49. FINDINGS: Image quality: Excellent. CSF spaces: Basal cisterns are patent. No extra-axial fluid collections. The ventricles are symmetric in size and shape. Brain: No intracranial bleeds or masses. There is cerebral volume loss for age, with resultant ventricular and sulcal prominence. There are periventricular and deep white matter chronic small vessel ischemic changes. There is intracranial internal carotid artery atherosclerosis. Skull and face: Calvarium and visualized facial bones appear intact, without suspicious lesions. Sinuses: Visualized sinuses and mastoids are clear. IMPRESSION: 1. No acute intracranial process. 2. Mild to moderate atrophy and chronic microvascular ischemic changes. Dictated by: Aaliyah Alonso M.D. on 02/06/2021 at 13:58 Approved by: Aaliyah Alonso M.D. on 02/06/2021 at 13:59
[2021-02-06 14:24] VITALS: BP 188/75; PULSE 65; RESP 17; O2SAT 99
== END 2021-02-06 14:25 | disposition home or self-care (01) ==
PROVIDERS: Emergency Provider Emergency Medicine; PCP Family Medicine
DX: R51.9 Headache, unspecified (principal); Z79.01 Long term (current) use of anticoagulants
CPT/HCPCS: 70450; 99283; 99284

== ENCOUNTER → 2021-11-25 13:54 | Outpatient (CLI) | payer MEDICARE, OTHER, SELFPAY ==
[2021-11-25 14:46] LABS: HEMOLYSIS < 15 (0-50); Iron 65 ug/dL (37-170)
[2021-11-25 14:48] LABS: BUN Creatinine Ratio 21.6 (6-22); Blood Urea Nitrogen 22 mg/dL (7-17); Calcium 8.5 mg/dL (8.4-10.2); Carbon Dioxide 30 mmol/L (22-32); Chloride 101 mmol/L (98-107); Estimated Glomerular Filt Rate 57 mL/min (>60); Glucose 108 mg/dL (80-110); HEMOLYSIS < 15 (0-50); Potassium 3.8 mmol/L (3.4-5.1); Sodium 141 mmol/L (137-145)
[2021-11-25 14:56] LABS: NT-proBNP (BNP-Adult 18+) 6450 pg/mL (<450)
[2021-11-25 14:57] LABS: Percent Iron Saturation 14 % (15-50); Total Iron Binding Capacity 455 ug/dL (265-497); Transferrin 357 mg/dL (206-381)
== END ==
PROVIDERS: Internal Medicine Cardiovascular Disease; PCP Family Medicine; Referring Provider Family Medicine; Visit Provider Family Medicine
DX: D64.9 Anemia, unspecified (principal); R60.0 Localized edema
CPT/HCPCS: 36415; 80048; 83540; 83550; 83880

== ENCOUNTER → 2021-12-08 16:18 | Outpatient (CLI) | payer MEDICARE, OTHER, SELFPAY ==
[2021-12-08 16:55] LABS: BUN Creatinine Ratio 28.3 (6-22); Blood Urea Nitrogen 30 mg/dL (7-17); Calcium 7.9 mg/dL (8.4-10.2); Carbon Dioxide 24 mmol/L (22-32); Chloride 100 mmol/L (98-107); Estimated Glomerular Filt Rate 54 mL/min (>60); Glucose 163 mg/dL (80-110); HEMOLYSIS < 15 (0-50); Potassium 4.2 mmol/L (3.4-5.1); Sodium 138 mmol/L (137-145)
== END ==
PROVIDERS: PCP Family Medicine; Referring Provider Family Medicine; Visit Provider Family Medicine
DX: N18.9 Chronic kidney disease, unspecified (principal)
CPT/HCPCS: 36415; 80048

== ENCOUNTER → 2022-01-18 10:05 | Outpatient (CLI) | payer MEDICARE, OTHER, SELFPAY ==
[2022-01-18 11:52] LABS: HEMOLYSIS < 15 (0-50); NT-proBNP (BNP-Adult 18+) 7890 pg/mL (<450)
[2022-01-18 11:53] LABS: Blood Urea Nitrogen 26 mg/dL (7-17); Calcium 8.2 mg/dL (8.4-10.2); Carbon Dioxide 26 mmol/L (22-32); Chloride 97 mmol/L (98-107); Estimated Glomerular Filt Rate 42 mL/min (>60); Glucose 176 mg/dL (80-110); Potassium 3.5 mmol/L (3.4-5.1); Sodium 138 mmol/L (137-145)
[2022-01-18 13:04] LABS: Add Manual Diff / Slide Review NO; Basophils Absolute Auto 0 /uL (0-100); Basophils Percent Auto 0.6 % (0-2); Eosinophils Absolute Auto 100 /uL (0-450); Eosinophils Percent Auto 2.4 % (2-4); Hematocrit 28.9 % (36-46); Hemoglobin 9.4 g/dL (12.0-16.0); Lymphocytes Absolute Auto 900 /uL (1100-4500); Lymphocytes Percent Auto 23.3 % (25-40); Mean Corpuscular HGB Conc 32.5 % (30-36); Mean Corpuscular Hemoglobin 25.4 PG (26-34); Mean Corpuscular Volume 78.1 fL (80-100); Monocytes Absolute Auto 400 /uL (0-900); Monocytes Percent Auto 10.5 % (3-14); Neutrophils Absolute Auto 2500 /uL (1500-7000); Neutrophils Percent Auto 63.2 % (50-75); Platelet Count 230 X10^3/uL (150-400); Red Cell Distribution Width 18.4 % (11.6-14.8)
[2022-01-19 02:17] LABS: Alanine Aminotransferase 10 IU/L (<35); Albumin 3.7 g/dL (3.5-5.0); Alkaline Phosphatase 82 U/L (38-126); Aspartate Aminotransferase 28 IU/L (14-36); Bilirubin Total 0.4 mg/dL (0.2-1.3); Globulin 3.6 g/dL (1.7-4.1); Total Protein 7.3 g/dL (6.3-8.2)
== END ==
PROVIDERS: PCP Family Medicine; Referring Provider Internal Medicine Cardiovascular Disease; Visit Provider Internal Medicine Cardiovascular Disease
DX: I50.20 Unspecified systolic (congestive) heart failure (principal); I50.22 Chronic systolic (congestive) heart failure
CPT/HCPCS: 36415; 80048; 80053; 83880; 85025

== ENCOUNTER → 2022-01-22 14:03 | Outpatient (CLI) | payer MEDICARE, OTHER, SELFPAY | PROVIDERS: PCP Family Medicine; Referring Provider Family Medicine; Visit Provider Nurse Practitioner Family | DX: I87.2 Venous insufficiency (chronic) (peripheral) (principal); L97.811 Non-pressure chronic ulcer of other part of right lower leg limited to breakdown of skin; L97.821 Non-pressure chronic ulcer of other part of left lower leg limited to breakdown of skin; E11.622 Type 2 diabetes mellitus with other skin ulcer; E11.40 Type 2 diabetes mellitus with diabetic neuropathy, unspecified; R60.0 Localized edema; Z79.01 Long term (current) use of anticoagulants; Z68.42 Body mass index [BMI] 45.0-49.9, adult; E66.9 Obesity, unspecified | CPT/HCPCS: 97597; 99204; 99213 ==

== ENCOUNTER → 2022-01-29 14:45 | Outpatient (CLI) | payer MEDICARE, OTHER, SELFPAY | PROVIDERS: PCP Family Medicine; Referring Provider Family Medicine; Visit Provider Nurse Practitioner Family | DX: I87.2 Venous insufficiency (chronic) (peripheral) (principal); L97.812 Non-pressure chronic ulcer of other part of right lower leg with fat layer exposed; L97.821 Non-pressure chronic ulcer of other part of left lower leg limited to breakdown of skin; R60.0 Localized edema; E11.622 Type 2 diabetes mellitus with other skin ulcer; M79.605 Pain in left leg; M79.604 Pain in right leg; Z79.01 Long term (current) use of anticoagulants; I10 Essential (primary) hypertension; I50.20 Unspecified systolic (congestive) heart failure | CPT/HCPCS: 11042; 36415; 80048; 97597 ==

== ENCOUNTER → 2022-01-29 15:43 | Outpatient (CLI) | payer MEDICARE, OTHER, SELFPAY ==
[2022-01-29 17:37] LABS: BUN Creatinine Ratio 19.9 (6-22); Blood Urea Nitrogen 28 mg/dL (7-17); Calcium 8.3 mg/dL (8.4-10.2); Carbon Dioxide 27 mmol/L (22-32); Chloride 97 mmol/L (98-107); Estimated Glomerular Filt Rate 38 mL/min (>60); Glucose 144 mg/dL (80-110); HEMOLYSIS < 15 (0-50); Potassium 3.7 mmol/L (3.4-5.1); Sodium 137 mmol/L (137-145)
== END ==
PROVIDERS: PCP Family Medicine; Referring Provider Family Medicine; Visit Provider Family Medicine
DX: I50.20 Unspecified systolic (congestive) heart failure (principal)
CPT/HCPCS: 36415; 80048

== ENCOUNTER → 2022-02-05 15:40 | Outpatient (CLI) | payer MEDICARE, OTHER, SELFPAY | PROVIDERS: PCP Family Medicine; Referring Provider Family Medicine; Visit Provider Nurse Practitioner Family | DX: I87.2 Venous insufficiency (chronic) (peripheral) (principal); L97.812 Non-pressure chronic ulcer of other part of right lower leg with fat layer exposed; L97.822 Non-pressure chronic ulcer of other part of left lower leg with fat layer exposed; R60.9 Edema, unspecified; E11.622 Type 2 diabetes mellitus with other skin ulcer; Z79.01 Long term (current) use of anticoagulants | CPT/HCPCS: 15271; 97597; Q4196 ==

== ENCOUNTER → 2022-02-12 14:01 | Outpatient (CLI) | payer MEDICARE, OTHER, SELFPAY | PROVIDERS: PCP Family Medicine; Referring Provider Family Medicine; Visit Provider Family Medicine | DX: I87.2 Venous insufficiency (chronic) (peripheral) (principal); L97.812 Non-pressure chronic ulcer of other part of right lower leg with fat layer exposed; L97.822 Non-pressure chronic ulcer of other part of left lower leg with fat layer exposed; R60.9 Edema, unspecified; E11.622 Type 2 diabetes mellitus with other skin ulcer; Z79.01 Long term (current) use of anticoagulants | CPT/HCPCS: 15271; 97597; Q4195 ==

== ENCOUNTER → 2022-02-19 14:21 | Outpatient (CLI) | payer MEDICARE, OTHER, SELFPAY | PROVIDERS: PCP Family Medicine; Referring Provider Family Medicine; Visit Provider Family Medicine | DX: I87.2 Venous insufficiency (chronic) (peripheral) (principal); L97.812 Non-pressure chronic ulcer of other part of right lower leg with fat layer exposed | CPT/HCPCS: 15271; Q4196 ==

== ENCOUNTER → 2022-02-26 13:11 | Outpatient (CLI) | payer MEDICARE, OTHER, SELFPAY | PROVIDERS: PCP Family Medicine; Referring Provider Family Medicine; Visit Provider Nurse Practitioner Family | DX: I87.2 Venous insufficiency (chronic) (peripheral) (principal); L97.812 Non-pressure chronic ulcer of other part of right lower leg with fat layer exposed; E11.622 Type 2 diabetes mellitus with other skin ulcer; R60.0 Localized edema; M79.641 Pain in right hand; M25.531 Pain in right wrist; M79.89 Other specified soft tissue disorders | CPT/HCPCS: 15271; 73110; 73130; Q4196 ==

== ENCOUNTER → 2022-02-26 15:12 | Outpatient (CLI) | payer MEDICARE, OTHER, SELFPAY ==
--- NOTE | 2022-02-26 15:13 | DI.RAD.S_ITS ---
PROCEDURE: XR WRIST RT MIN 3V INDICATIONS: Right hand injury TECHNIQUE: views of the wrist were acquired. COMPARISON: [facility], CR, XR HAND RT MIN 3V, 02/26/2022, 15:16. [facility], CR, XR WRIST RT MIN 3V, 04/02/2019, 11:52. FINDINGS/IMPRESSION: 1. No fracture or dislocation. 2. Moderately advanced 1st and 2nd CMC and triscaphe osteoarthritic changes. 3. Circumferential soft tissue swelling about the wrist. Dictated by: Louis Young M.D. on 02/26/2022 at 15:52 Approved by: Louis Young M.D. on 02/26/2022 at 15:57
--- NOTE | 2022-02-26 15:13 | DI.RAD.S_ITS ---
PROCEDURE: XR HAND RT MIN 3V INDICATIONS: Right hand injury TECHNIQUE: 3 views of the hand(s) acquired. COMPARISON: 04/02/2019 FINDINGS: Bones: No fractures or dislocations. Carpal bones are normally aligned. No suspicious bony lesions. Moderate to severe osteoarthritic changes at the 1st and 2nd CMC joints and triscaphe joint. Moderate osteoarthritic change at the 1st and 2nd distal interphalangeal joints as well as the 5th distal interphalangeal joint. Soft tissues: No suspicious soft tissue calcifications. IMPRESSION: No acute finding. Dictated by: Louis Young M.D. on 02/26/2022 at 15:35 Approved by: Louis Young M.D. on 02/26/2022 at 15:37
== END ==
PROVIDERS: PCP Family Medicine; Referring Provider Registered Nurse; Visit Provider Registered Nurse
DX: M79.641 Pain in right hand (principal); M25.531 Pain in right wrist; M79.89 Other specified soft tissue disorders
CPT/HCPCS: 73110; 73130

== ENCOUNTER 2022-03-01 14:32 | Emergency (ER) | payer MEDICARE, OTHER, SELFPAY ==
--- NOTE | 2022-03-01 14:32 | PC.NURSE ---
Addendum entered by Prisca Toure R.N. 03/01/22 16:25: Patient ambulated with her cane independently from her room to bathroom and back out. Original Note: Patient was able to stand and pivot with 1 person assist from EMS gurney to ED stretcher.
[2022-03-01 14:41] VITALS: BP 168/93; PULSE 75; RESP 22; TEMP 36.1; O2SAT 96; BMI 46.1
--- NOTE | 2022-03-01 14:44 | DI.RAD.S_ITS ---
PROCEDURE: XR HAND RT MIN 3V INDICATIONS: Pain TECHNIQUE: 3 views of the hand(s) acquired. COMPARISON: [facility], , XR HAND RT MIN 3V, 02/26/2022, 15:16. FINDINGS: Bones: No fractures or dislocations. Osteoarthritic changes are noted throughout right hand and wrist joints most notably at 1st CMC joint and 2nd DIP joint. Carpal bones are normally aligned. No suspicious bony lesions. Soft tissues: No suspicious soft tissue calcifications. IMPRESSION: Osteoarthritic changes throughout right hand and wrist joints as above. No acute fracture or dislocation. No definite bony erosive changes. Dictated by: Jagdeep Smith M.D. on 03/01/2022 at 15:25 Approved by: Jagdeep Smith M.D. on 03/01/2022 at 15:26
--- NOTE | 2022-03-01 14:59 | DI.RAD.S_ITS ---
PROCEDURE: XR WRIST RT MIN 3V INDICATIONS: injury TECHNIQUE: 4 views of the wrist were acquired. COMPARISON: [facility], , XR WRIST RT MIN 3V, 02/26/2022, 15:16. FINDINGS: Bones: No fractures or dislocations. Moderate osteoarthritic changes along radial aspect of right wrist are seen most notably at 1st CMC joint. No suspicious bony lesions. Scaphoid view: Scaphoid is grossly intact. Soft tissues: No suspicious soft tissue calcifications. IMPRESSION: Osteoarthritic changes along radial aspect of right wrist not significantly changed from prior study. No acute fracture or dislocation. No evidence of osteonecrosis. Dictated by: Jagdeep Smith M.D. on 03/01/2022 at 15:24 Approved by: Jagdeep Smith M.D. on 03/01/2022 at 15:25
--- NOTE | 2022-03-01 14:59 | ED.UPPEXIN ---
HPI - Extremity Injury (Upper) <Mary Grace Wright, [facility] - Last Filed: 03/01/22 18:50> General Chief Complaint: Extremity Injury, Upper Stated Complaint: Right Hand Injury, referred by dr Camp Seen by Provider: 03/01/22 14:49 Source: patient and EMS Mode of arrival: EMS History of Present Illness HPI narrative: This is a 77-year-old female who presents to the emergency department via EMS with reported hand pain after she got her right hand stuck in a recliner 1 week ago. Patient states that she is left-hand dominant, uses a walker and a cane to ambulate, states that she uses them to transfer at home and has tried physical therapy in the past and states she did not like it. She sits at home in her chair in she prefers to do this. She denies any significant mobility concerns, states that she is able to ambulate and uses a walker. Patient denies any recent weakness, range of motion abnormalities, states that she was seen in the walk-in clinic 1 week ago on 02/26/2022 and has a wrist and hand x-ray in the system from those days, no acute fracture, deformity or acute abnormality otherwise. Update: Patient's son arrived to the bedside and states that patient can not mobilize at home on her own, says that she can not move herself, has that he can not help her and her primary care office told her to come to the emergency department so she can get admitted to a SNF. Patient did not tell me any of this information, this was a few hours after she had been here already and was up for discharge with her paperwork in hand. Patient states that she is able to mobilize, was able to get up and ambulate with a walker to the bathroom. A social work consult was added and social work is in the room discussing plan of care with the son and patient currently.. Related Data Home Medications Medication Instructions Recorded Confirmed acetaminophen 500 mg tablet 1,000 mg PO PRN PRN ##0 10/26/16 03/04/22 Previous Rx's Medication Instructions Recorded Alcohol Prep Pads pad QID ##200 08/24/16 Disabled Parking Permit ea ##1 12/27/16 Lancets #360 ea 10/25/17 aspirin 81 mg tablet,delayed 81 mg PO QDAY #90 tabs 10/25/17 release Syringes: Ultra Fine Insulin #100 ea 02/22/20 Syringe w/Needle True Metrix Glucose: Test Strips #360 ea 02/22/20 hydroxyzine HCl 25 mg tablet 25 mg PO BID PRN itching #180 tabs 05/27/21 insulin glargine 100 unit/mL 15 unit (0.15 mL) SUBCUT HS #30 mL 05/27/21 subcutaneous solution (Lantus U-100 Insulin) metformin 1,000 mg tablet 1,000 mg PO BIDCC #180 tabs 05/27/21 primidone 50 mg tablet (Mysoline) See Rx Instructions PO BID #270 05/27/21 tabs rivaroxaban 20 mg tablet (Xarelto) 20 mg PO QDAY #90 tabs 05/27/21 rosuvastatin 20 mg tablet 20 mg PO HS #90 tabs 05/27/21 triamcinolone acetonide 0.025 % 1 applic topical BID #15 grams 12/08/21 topical cream fluticasone propionate 50 1 spray intranasal BID #16 grams 12/15/21 mcg/actuation nasal spray,suspension (Flonase Allergy Relief) losartan 25 mg tablet 25 mg PO DAILY #90 tabs 12/15/21 metoprolol succinate 50 mg See Rx Instructions PO SEE 12/15/21 tablet,extended release 24 hr INSTRUCTIONS #270 tabs (Toprol XL) levocetirizine 5 mg tablet (Xyzal) 5 mg PO DAILY PRN allergy symptoms 01/21/22 #30 tabs qqitkzzh-dwo-goajh ac 400 1 tab PO DAILY #30 tabs 01/21/22 mcg-calcium carb 500 mg-vit K1 20 mcg tablet (Women's 50 Plus Multivitamin) omeprazole 20 mg tablet,delayed 20 mg PO BID #60 tabs 01/21/22 release spironolactone 25 mg tablet 25 mg PO DAILY #90 tabs 01/21/22 digoxin 125 mcg (0.125 mg) tablet 125 mcg PO DAILY #10 tabs 02/16/22 torsemide 10 mg tablet 10 mg PO BID #10 tabs 02/16/22 benzonatate 100 mg capsule See Rx Instructions .Route 02/23/22 .COMPLEX #30 caps diclofenac sodium 1 % topical gel 2 g topical QID PRN wrist pain 03/04/22 #100 grams Allergies Allergy/AdvReac Type Severity Reaction Status Date / Time albuterol Allergy Mild HIVES Verified 03/01/22 14:41 Sulfa (Sulfonamide Allergy Unknown Verified 03/01/22 14:41 Antibiotics) diazepam AdvReac Mild gives pt Verified 03/01/22 14:41 anxiety Review of Systems <JORGITO Blancas - Last Filed: 03/01/22 18:50> Review of Systems Narrative: Review of systems is negative for acute abnormalities unless otherwise noted in HPI Patient History <JORGITO Blancas - Last Filed: 03/01/22 18:50> Medical History Abnormal Pap smear of cervix (~1999) Anemia Ankle pain B12 deficiency Cardiac arrhythmia (~1979) Cervical cancer (~1999) Chicken pox CKD (chronic kidney disease) Coronary artery disease (~2007) Diabetes mellitus Eczema Endometriosis (~1999) Foot pain GERD (gastroesophageal reflux disease) (~1962) GI bleeding Heart failure with reduced ejection fraction Hemorrhoid Hyperlipidemia (~1983) Hypertension (~1959) Myocardial infarction (~09/2014) Osteoarthritis Pulmonary embolism (~2014) Shoulder pain Venous insufficiency Surgical History Anesthesia History of angioplasty History of bladder suspension procedure Status post hysterectomy Status post laparoscopic cholecystectomy Surgical procedure planned (~2014) Social History pets and animals: No education level: college occupational status: other tatianna/yazdanism: Mormonism travel history: other leisure activities: other other: Watching tv seatbelt use: always water heater temp set < 120 deg: Yes working smoke detector in home: Yes fire extinguisher in home: No carbon monox detector in home: Yes firearms in home: No Smoking Status: Never smoker alcohol intake: never substance use type: does not use during the past year weight has: remained stable well-balanced diet: about half the time daily servings fruits/ve-4 caffeine: No eating out: 1-3 times/week Type(s) of exercise: walking and other duration: 15-30 minutes/day Smoking Status: Never smoker alcohol intake frequency: holidays/special occasions only Alcohol type: wine Substance Use Type: does not use Exam <VINCE BlancasP - Last Filed: 03/01/22 18:50> Narrative Exam Narrative: Reviewed vitals signs and nursing notes. General: cooperative, comfortable, in no acute distress, well groomed, elevated BMI, patient resting covered for bleed in bed, no range of motion deficit to her right arm HEENT: symmetrical facial expressions, moist mucous membranes Cardiovascular: regular rate and rhythm, no peripheral edema, warm extremities Respiratory: normal effort, able to speak in complete sentences, without wheezing, stridor, or abnormal breath sounds. No retractions or tachypnea. GI: abdomen soft, obese, nontender to palpation, nondistended, without masses, rebound tenderness or exquisite tenderness with exam. MSK: moves all extremities, neurovascularly intact, no weakness, normal tone, no range of motion abnormalities, cap refills brisk, no sensation changes to her right hand, she is left-hand dominant, able to make a fist, flex and extend all of her fingers and flex and extend her wrist without pain or deficit. She was fitted in a Velcro wrist splint and states that it is comfortable. She ambulated with the nurse and a walker to the bathroom and did not have any overt weakness. She has mild edema to the dorsum of her right hand without any erythema. No open wound. Skin: brisk capillary refill, without pallor or erythema Neuro: normal speech and cognition, A&O x3, ambulatory, clear speech Psych: mental status is grossly normal, congruent mood, normal affect, pleasant and cooperative Initial Vital Signs Initial Vital Signs: Vital Signs Temperature 97 F L 03/01/22 14:41 Pulse Rate 75 03/01/22 14:41 Respiratory Rate 22 03/01/22 14:41 Blood Pressure 168/93 H 03/01/22 14:41 Pulse Oximetry 96 03/01/22 14:41 Oxygen Delivery Method 03/01/22 14:41 <Farida Davidson DO - Last Filed: 03/07/22 04:44> Initial Vital Signs Initial Vital Signs: Vital Signs Temperature 97 F L 03/01/22 14:41 Pulse Rate 75 03/01/22 14:41 Respiratory Rate 22 03/01/22 14:41 Blood Pressure 168/93 H 03/01/22 14:41 Pulse Oximetry 96 03/01/22 14:41 Oxygen Delivery Method 03/01/22 14:41 Procedures <JORGITO Blancas - Last Filed: 03/01/22 18:50> Orthopedic Splinting/Casting Injury #1: Side: right Upper Extremity Injury Location: wrist Upper Extremity Immobilizer: wrist splint Post splinting neuro exam: intact Post splinting vascular exam: intact Placed by: Nursing Course <JORGITO Blancas - Last Filed: 03/01/22 18:50> Orders Ordered: Discontinued Medications Acetaminophen (Acetaminophen 325 Mg Tablet) 650 mg PO NOW ONE Stop: 03/01/22 15:00 Last Admin: 03/01/22 15:34 Dose: 650 mg Documented By: RL Vital Signs Vital signs: Vital Signs - 8 hr 03/01/22 14:41 Temperature 97 F L Pulse Rate 75 Respiratory Rate 22 Blood Pressure 168/93 H Pulse Oximetry 96 Oxygen Delivery Method Room Air <Farida Davidson DO - Last Filed: 03/07/22 04:44> Orders Ordered: Discontinued Medications Acetaminophen (Acetaminophen 325 Mg Tablet) 650 mg PO NOW ONE Stop: 03/01/22 15:00 Last Admin: 03/01/22 15:34 Dose: 650 mg Documented By: RL Vital Signs Vital signs: Vital Signs - 8 hr 03/01/22 14:41 Temperature 97 F L Pulse Rate 75 Respiratory Rate 22 Blood Pressure 168/93 H Pulse Oximetry 96 Oxygen Delivery Method Room Air MDM - Extremity Injury (Upper) <JORGITO Blancas - Last Filed: 03/01/22 18:50> Imaging Data Extremity x-ray #1: Radiologist's Impression: PROCEDURE:? XR WRIST RT MIN 3V ? INDICATIONS: injury ? TECHNIQUE:? 4 views of the wrist were acquired.? ? COMPARISON:? [facility], CR, XR WRIST RT MIN 3V, 02/26/2022, 15:16. ? FINDINGS:? ? Bones:? No fractures or dislocations.? Moderate osteoarthritic changes along radial aspect of right wrist are seen most notably at 1st CMC joint.? No suspicious bony lesions.? ? Scaphoid view:? Scaphoid is grossly intact. ? Soft tissues:? No suspicious soft tissue calcifications.? ? IMPRESSION:? Osteoarthritic changes along radial aspect of right wrist not significantly changed from prior study.? No acute fracture or dislocation.? No evidence of osteonecrosis. ? ? Dictated by: Jagdeep Smith M.D. on 03/01/2022 at 15:24 ? ? Approved by: Jagdeep Smith M.D. on 03/01/2022 at 15:25 ? Extremity x-ray #2: Radiologist's Impression: PROCEDURE:? XR HAND RT MIN 3V ? INDICATIONS:? Pain ? TECHNIQUE:? 3 views of the hand(s) acquired.? ? COMPARISON:? [facility], , XR HAND RT MIN 3V, 02/26/2022, 15:16. ? FINDINGS:? ? Bones:? No fractures or dislocations.? Osteoarthritic changes are noted throughout right hand and wrist joints most notably at 1st CMC joint and 2nd DIP joint.? Carpal bones are normally aligned.? No suspicious bony lesions.? ? Soft tissues:? No suspicious soft tissue calcifications.? ? ? IMPRESSION:? Osteoarthritic changes throughout right hand and wrist joints as above.? No acute fracture or dislocation.? No definite bony erosive changes. ? ? Dictated by: Jagdeep Smith M.D. on 03/01/2022 at 15:25 ? ? Approved by: Jagdeep Smith M.D. on 03/01/2022 at 15:26 ? MDM Narrative Medical decision making narrative: This is a 69-year-old female presents to the emergency department via EMS for evaluation of her right hand and wrist pain after she got her hand stuck in the recliner on 02/26/2022. She had x-rays again today of her right wrist and hand which were negative for acute changes, she has history of osteoarthritis in her right hand and wrist most notably at the 1st CMC joint and the 2nd DIP joint. Patient's son arrived to the bedside at her time of discharge stating that she can not care for herself at home and requests admission to the hospital or discharge to a SNF. Patient was evaluated by the social media campaign manager, please see their note. Patient was fitted in a right wrist Velcro splint today, given Tylenol for her symptoms, she is left-hand dominant without any mobility or strength deficit. No open wound. X-rays were negative for acute changes. Patient was able to ambulate with a walker to the bathroom to void. Patient was ambulatory without difficulty, social media campaign manager and patient's son met and both agree to discharge home. No further labs, no further workup, patient's son will discuss with her primary care provider and follow-up on recommendations from the social media campaign manager. Patient is appropriate and amenable to discharge home. Vital signs are stable on repeat examination is unremarkable. Patient has been informed of results. Patient has been given strict return to ER precautions for any new or worsening symptoms. Patient understands to follow up closely with outpatient providers as instructed. Patient understands plan and agrees to discharge home. All questions and concerns answered at this time. Discharge Plan Departure Patient Disposition: Home Clinical Impression: Hand injuries Osteoarthritis Qualifiers: Osteoarthritis location: wrist Laterality: right Instructions: DI for Wrist Sprain Activity Restrictions/Additional Instructions: *You have been diagnosed with a hand and wrist injury without acute bony changes like a fracture, dislocation, or major deformity. This may take 1-2 weeks for the swelling and pain to go down. Please use the topical diclofenac gel up to 4 times daily, Tylenol as needed for pain, it might be helpful to ice areas of pain while the injury is recent. Hopefully this feels better soon. Please make sure you have a walker with you at all x4 better mobility and safe transitions from 1 place to another. Use the wrist brace to provide an additional layer of support. Follow up with your regular doctor if you would like to return to physical therapy. I hope you feel better soon. *What to do: *Please continue to take your regular medications as directed. [x ] New medication prescriptions sent to your pharmacy: [[facility] ] [ ] New medication written as a paper prescription [ ] No new medications given *Please follow up with your primary care provider in 2-3 days, call for an appointment. Let them know you were seen in the Emergency Department and that we asked that you be seen for follow-up. We will electronically transmit a record of today's note if your PCP is in our system *If you do not have a primary care provider please contact [phone] to establish care with one of the [facility] primary care providers. *Return to Emergency Department if you should have any new, worsening, or concerning symptoms, such as [fever greater than 101F, chills, worsening pain, persistent vomiting or other bothersome symptoms]. Prescriptions: No Action Women's 50 Plus Multivitamin 400 mcg-500 mg calcium-20 mcg tablet 1 tab PO DAILY Qty: 30 0RF spironolactone 25 mg tablet 25 mg PO DAILY Qty: 90 3RF omeprazole 20 mg tablet,delayed release (DR/EC) 20 mg PO BID Qty: 60 0RF levocetirizine [Xyzal] 5 mg tablet 5 mg PO DAILY PRN (Reason: allergy symptoms) Qty: 30 0RF triamcinolone acetonide 0.025 % cream 1 applic topical BID Qty: 15 0RF Rx Instructions: Do not use more than 2 weeks fluticasone propionate [Flonase Allergy Relief] 50 mcg/actuation spray,suspension 1 spray intranasal BID Qty: 16 2RF Rx Instructions: administer into each nostril losartan 25 mg tablet 25 mg PO DAILY Qty: 90 3RF metoprolol succinate [Toprol XL] 50 mg tablet extended release 24 hr See Rx Instructions PO SEE INSTRUCTIONS Qty: 270 3RF Dose Instruction: 2 1/2 tabs in the morning and 1 tab at night PO SEE INSTRUCTIONS; Rx Instructions: 125 mg AM, 50 mg PM diclofenac sodium 1 % gel 2 g topical QID PRN (Reason: wrist pain) Qty: 100 3RF Rx Instructions: apply to single elbow, wrist or hand; for hand includes palm/fingers/back of hand Alcohol Prep Pads QID Qty: 200 11RF acetaminophen 500 MG tablet 1,000 mg PO PRN PRNQty: 0 Disabled Parking Permit Qty: 1 0RF aspirin 81 mg tablet,delayed release (DR/EC) 81 mg PO QDAY Qty: 90 3RF (DME) Lancets 0 .Route .MEDSUPPLY Qty: 360 3RF Dose Instruction: As directed Rx Instructions: As directed (DME) True Metrix Glucose: Test Strips 0 .Route .MEDSUPPLY Qty: 360 3RF Dose Instruction: As directed Rx Instructions: Use to check blood sugar 4 times daily. (DME) Syringes: Ultra Fine Insulin Syringe w/Needle 0 .Route .MEDSUPPLY Qty: 100 3RF Dose Instruction: As directed Rx Instructions: Use to inject lantus daily at bedtime hydroxyzine HCl 25 mg tablet 25 mg PO BID PRN (Reason: itching) Qty: 180 3RF Lantus U-100 Insulin 100 unit/mL solution 15 unit SUBCUT HS Qty: 30 3RF metformin 1,000 mg tablet 1,000 mg PO BIDCC Qty: 180 3RF primidone [Mysoline] 50 mg tablet See Rx Instructions PO BID Qty: 270 3RF Dose Instruction: Take 1 tablet in the morning and two tablets at night PO BID; Rx Instructions: Take 1 tablet in the morning and two tablets at night Xarelto 20 mg tablet 20 mg PO QDAY Qty: 90 3RF rosuvastatin 20 mg tablet 20 mg PO HS Qty: 90 3RF torsemide 10 mg tablet 10 mg PO BID Qty: 10 0RF digoxin 125 mcg (0.125 mg) tablet 125 mcg PO DAILY Qty: 10 0RF benzonatate 100 mg capsule See Rx Instructions .ROUTE .COMPLEX Qty: 30 0RF Dose Instruction: TAKE 1 CAPSULE BY MOUTH THREE TIMES DAILY NEEDED FOR COUGH Rx Instructions: TAKE 1 CAPSULE BY MOUTH THREE TIMES DAILY NEEDED FOR COUGH Referrals: Idania Bruno DO [Primary Care Provider] - Visit Report Forms: Patient Portal/API <Farida Davidson DO - Last Filed: 03/07/22 04:44> Cosign ED Attending Cosraoature Attestation: I was immediately available in the department for consultation. Documentation has been reviewed. Patient case was discussed. Patient was visualized by myself walking from her room to the bathroom independently with a walker.
[2022-03-01] MEDS: ACETAMINOPHEN 325 MG TABLET 650 MG PO (15:34)
--- NOTE | 2022-03-01 17:00 | CM.SWNOTE ---
HYDRAULIC PILE HAMMER OPERATOR Note: Reviewed record. Received call from ED staff requesting HYDRAULIC PILE HAMMER OPERATOR intervention. Per RN, patient's son upset about taking patient home. Per provider, Dr. Davidson patient meets no medical criteria for admit. HYDRAULIC PILE HAMMER OPERATOR met with patient and son/Aubrey at bedside. Aubrey immediately reports to this HYDRAULIC PILE HAMMER OPERATOR that patient must be placed because she cannot walk or care for herself. Patient alert and oriented, denies both. Patient up in room and walked to ED bathroom with RN standby. Son reports that patient has HH services through [facility] but they barely provide anything. Angela HYDRAULIC PILE HAMMER OPERATOR notified [facility] that new referral would be faxed. F2F signed by Dr. Davidson and additional HH services added such as PT/OT/BIOLOGY TEACHER/HYDRAULIC PILE HAMMER OPERATOR/RN. Patient denies to this HYDRAULIC PILE HAMMER OPERATOR that she has any issue living at home. HYDRAULIC PILE HAMMER OPERATOR discussed with patient the concerns of son. Patient does not agree nor does she feel she is ready for any type of assisted living facility. HYDRAULIC PILE HAMMER OPERATOR encouraged son to continue to conversation with patient and additional family if available. As of now patient does not meet criteria for hospitalization or SNF. Home Health resumed through [facility] with additional services. HYDRAULIC PILE HAMMER OPERATOR faxed [facility], ED note, an demographic sheet. No additional needs identified. Son aware that until patient ready to make decision to either move or hire outside help things most likely will not change. Son wants to return to [place] but has difficulty leaving patient alone. Per son no other family available to assist. Son encouraged to review senior guide for resources and continue to encourage patient to either hire additional help or consider moving into assisted type living if no family available to assist any longer. P: Home with [facility]. [place]
== END 2022-03-01 16:43 | disposition home or self-care (01) ==
PROVIDERS: Emergency Provider Nurse Practitioner Critical Care Medicine; PCP Family Medicine
DX: S69.91XA Unspecified injury of right wrist, hand and finger(s), initial encounter (principal); M19.031 Primary osteoarthritis, right wrist; W22.8XXA Striking against or struck by other objects, initial encounter
CPT/HCPCS: 73110; 73130; 99283

== ENCOUNTER → 2022-03-02 12:31 | Outpatient (CLI) | payer MEDICARE, OTHER, SELFPAY ==
[2022-03-02 13:35] LABS: Add Manual Diff / Slide Review NO; Basophils Absolute Auto 0 /uL (0-100); Basophils Percent Auto 0.6 % (0-2); Eosinophils Absolute Auto 0 /uL (0-450); Eosinophils Percent Auto 0.9 % (2-4); Hematocrit 31.8 % (36-46); Hemoglobin 10.1 g/dL (12.0-16.0); Lymphocytes Absolute Auto 600 /uL (1100-4500); Lymphocytes Percent Auto 17.2 % (25-40); Mean Corpuscular HGB Conc 31.7 % (30-36); Mean Corpuscular Hemoglobin 24.8 PG (26-34); Mean Corpuscular Volume 78.1 fL (80-100); Monocytes Absolute Auto 400 /uL (0-900); Monocytes Percent Auto 9.9 % (3-14); Neutrophils Absolute Auto 2600 /uL (1500-7000); Neutrophils Percent Auto 71.4 % (50-75); Platelet Count 249 X10^3/uL (150-400); Red Blood Cell Count 4.07 X10^6/uL (4.0-5.2); Red Cell Distribution Width 19.2 % (11.6-14.8); White Blood Cell Count 3.7 X10^3/uL (4.5-11.0)
[2022-03-02 13:48] LABS: Alanine Aminotransferase 18 IU/L (<35); Albumin 3.8 g/dL (3.5-5.0); Albumin Globulin Ratio 1.1 (1.0-2.8); Alkaline Phosphatase 114 U/L (38-126); Aspartate Aminotransferase 39 IU/L (14-36); BUN Creatinine Ratio 16.1 (6-22); Bilirubin Total 0.7 mg/dL (0.2-1.3); Blood Urea Nitrogen 22 mg/dL (7-17); Calcium 8.5 mg/dL (8.4-10.2); Carbon Dioxide 22 mmol/L (22-32); Chloride 103 mmol/L (98-107); Estimated Glomerular Filt Rate 40 mL/min (>60); Globulin 3.5 g/dL (1.7-4.1); Glucose 143 mg/dL (80-110); HEMOLYSIS 24 (0-50); Potassium 3.6 mmol/L (3.4-5.1); Sodium 139 mmol/L (137-145); Total Protein 7.3 g/dL (6.3-8.2)
[2022-03-02 13:49] LABS: BUN Creatinine Ratio 15.8 (6-22); Blood Urea Nitrogen 22 mg/dL (7-17); Calcium 8.5 mg/dL (8.4-10.2); Carbon Dioxide 22 mmol/L (22-32); Chloride 102 mmol/L (98-107); Estimated Glomerular Filt Rate 39 mL/min (>60); Glucose 143 mg/dL (80-110); HEMOLYSIS 29 (0-50); Potassium 3.6 mmol/L (3.4-5.1); Sodium 140 mmol/L (137-145)
[2022-03-02 13:52] LABS: HEMOLYSIS < 15 (0-50); Iron 45 ug/dL (37-170)
[2022-03-02 13:56] LABS: NT-proBNP (BNP-Adult 18+) 22400 pg/mL (<450)
[2022-03-02 14:04] LABS: Percent Iron Saturation 10 % (15-50); Total Iron Binding Capacity 442 ug/dL (265-497); Transferrin 326 mg/dL (206-381)
[2022-03-02 16:12] LABS: Digoxin 1.1 ng/mL (0.8-2.0)
== END ==
PROVIDERS: PCP Family Medicine; Referring Provider Internal Medicine Cardiovascular Disease; Visit Provider Internal Medicine Cardiovascular Disease
DX: I50.22 Chronic systolic (congestive) heart failure (principal); E11.9 Type 2 diabetes mellitus without complications; I50.20 Unspecified systolic (congestive) heart failure; I48.19 Other persistent atrial fibrillation; D64.9 Anemia, unspecified
CPT/HCPCS: 36415; 80048; 80053; 80162; 83036; 83540; 83550; 83880; 85025

== ENCOUNTER → 2022-03-26 14:33 | Outpatient (CLI) | payer MEDICARE, OTHER, SELFPAY | PROVIDERS: PCP Family Medicine; Referring Provider Family Medicine; Visit Provider Nurse Practitioner Family | DX: I87.2 Venous insufficiency (chronic) (peripheral) (principal); L97.812 Non-pressure chronic ulcer of other part of right lower leg with fat layer exposed; R60.0 Localized edema; E11.622 Type 2 diabetes mellitus with other skin ulcer | CPT/HCPCS: 97597; 99213 ==

== ENCOUNTER 2022-04-10 02:27 | Emergency (ER) | payer MEDICARE, OTHER, SELFPAY ==
[2022-04-10] VITALS (11 sets, daily range): BP systolic 140–168; BP diastolic 66–93; PULSE 75–115; RESP 18–22; TEMP 37; O2SAT 95–100
--- NOTE | 2022-04-10 02:37 | ED_ITS ---
HPI - Weakness General Chief complaint: Extremity Problem,Nontraumatic Stated complaint: bilateral foot pain Time Seen by Provider: 04/10/22 02:36 History of Present Illness HPI Narrative: Patient is a 77-year-old female history of hypertension, type 2 diabetes, congestive heart failure, atrial fibrillation, coronary artery disease, history of DVT a moderate lower extremity edema with chronic wounds presenting with worsening bilateral foot pain and headache. She has chronic wounds for which she is followed for by wound care. Today she was having increased pain in her wounds and a mild headache. She took Tylenol home did not help. She states that the pain in her feet were so bad that she was unable to ambulate. According to records she has had previously difficulty ambulating but is able to do so with a walker. She lives at home with her son previously there was concerns about possibly needing a sniff. Sounds as though she does have some home health care. He denies any fever chills. Wound her is dressed from wound care there is always kind of weeping. There is just more painful today. Her headache is mild she denies any numbness tingling or weakness. No speech difficulty. She denies any chest pain or palpitations. No fever or chills. No abdominal pain nausea vomiting. Related Data Home Medications Medication Instructions Recorded Confirmed acetaminophen 500 mg tablet 1,000 mg PO PRN PRN ##0 10/26/16 03/04/22 Previous Rx's Medication Instructions Recorded Alcohol Prep Pads pad QID ##200 08/24/16 Disabled Parking Permit ea ##1 12/27/16 Lancets #360 ea 10/25/17 aspirin 81 mg tablet,delayed 81 mg PO QDAY #90 tabs 10/25/17 release Syringes: Ultra Fine Insulin #100 ea 02/22/20 Syringe w/Needle True Metrix Glucose: Test Strips #360 ea 02/22/20 hydroxyzine HCl 25 mg tablet 25 mg PO BID PRN itching #180 tabs 05/27/21 insulin glargine 100 unit/mL 15 unit (0.15 mL) SUBCUT HS #30 mL 05/27/21 subcutaneous solution (Lantus U-100 Insulin) metformin 1,000 mg tablet 1,000 mg PO BIDCC #180 tabs 05/27/21 primidone 50 mg tablet (Mysoline) See Rx Instructions PO BID #270 05/27/21 tabs rivaroxaban 20 mg tablet (Xarelto) 20 mg PO QDAY #90 tabs 05/27/21 rosuvastatin 20 mg tablet 20 mg PO HS #90 tabs 05/27/21 triamcinolone acetonide 0.025 % 1 applic topical BID #15 grams 12/08/21 topical cream fluticasone propionate 50 1 spray intranasal BID #16 grams 12/15/21 mcg/actuation nasal spray,suspension (Flonase Allergy Relief) losartan 25 mg tablet 25 mg PO DAILY #90 tabs 12/15/21 metoprolol succinate 50 mg See Rx Instructions PO SEE 12/15/21 tablet,extended release 24 hr INSTRUCTIONS #270 tabs (Toprol XL) levocetirizine 5 mg tablet (Xyzal) 5 mg PO DAILY PRN allergy symptoms 01/21/22 #30 tabs [id number] ac 400 1 tab PO DAILY #30 tabs 01/21/22 mcg-calcium carb 500 mg-vit K1 20 mcg tablet (Women's 50 Plus Multivitamin) omeprazole 20 mg tablet,delayed 20 mg PO BID #60 tabs 01/21/22 release spironolactone 25 mg tablet 25 mg PO DAILY #90 tabs 01/21/22 digoxin 125 mcg (0.125 mg) tablet 125 mcg PO DAILY #10 tabs 02/16/22 torsemide 10 mg tablet 10 mg PO BID #10 tabs 02/16/22 benzonatate 100 mg capsule See Rx Instructions .Route 02/23/22 .COMPLEX #30 caps diclofenac sodium 1 % topical gel 2 g topical QID PRN wrist pain 03/04/22 #100 grams Allergies Allergy/AdvReac Type Severity Reaction Status Date / Time albuterol Allergy Mild HIVES Verified 03/01/22 14:41 Sulfa (Sulfonamide Allergy Unknown Verified 03/01/22 14:41 Antibiotics) diazepam AdvReac Mild gives pt Verified 03/01/22 14:41 anxiety Review of Systems Review of Systems Narrative: GENERAL: Denies chills, fatigue, malaise, fever, sweats, travel HEENT: Denies sinus pain, ear pain, sore throat, difficulty swallowing, neck pain RESPIRATORY: Denies dyspnea, cough, wheezing, hemoptysis, sputum. CARDIOVASCULAR: Denies chest pain, palpitations, orthopnea, edema GASTROINTESTINAL: Denies nausea, vomiting, abdominal pain, diarrhea, constip ation, melena. : Denies dysuria, frequency, incontinence, hematuria, urinary retention, flank pain. MUSCULOSKELETAL: Denies weakness, joint pain, or bony pain SKIN: See HPI NEUROLOGIC: Denies weakness, dizziness, headache, numbness, change in speech, confusion PSYCHIATRIC: No concerning psychosocial issues. 12 point review of systems is negative except for those stated above and HPI Patient History Medical History Abnormal Pap smear of cervix (~1999) Anemia Ankle pain B12 deficiency Cardiac arrhythmia (~1979) Cervical cancer (~1999) Chicken pox CKD (chronic kidney disease) Coronary artery disease (~2007) Diabetes mellitus Eczema Endometriosis (~1999) Foot pain GERD (gastroesophageal reflux disease) (~1962) GI bleeding Heart failure with reduced ejection fraction Hemorrhoid Hyperlipidemia (~1983) Hypertension (~1959) Myocardial infarction (~09/2014) Osteoarthritis Pulmonary embolism (~2014) Shoulder pain Venous insufficiency Surgical History Anesthesia History of angioplasty History of bladder suspension procedure Status post hysterectomy Status post laparoscopic cholecystectomy Surgical procedure planned (~2014) Social History pets and animals: No education level: college occupational status: other 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: [employer] travel history: other leisure activities: other other: Watching tv seatbelt use: always water heater temp set < 120 deg: Yes working smoke detector in home: Yes fire extinguisher in home: No carbon monox detector in home: Yes firearms in home: No Smoking Status: Never smoker alcohol intake: never substance use type: does not use during the past year weight has: remained stable well-balanced diet: about half the time daily servings fruits/ve-4 caffeine: No eating out: 1-3 times/week Type(s) of exercise: walking and other duration: 15-30 minutes/day Exam Initial Vital Signs Initial Vital Signs: Vital Signs Temperature 98.6 F 04/10/22 02:33 Pulse Rate 115 H 04/10/22 02:33 Respiratory Rate 18 04/10/22 02:33 Blood Pressure 145/93 H 04/10/22 02:33 Pulse Oximetry 99 04/10/22 02:33 Oxygen Delivery Method 04/10/22 02:33 GENERAL: Alert 77-year-old female HEENT: Head atraumatic,EOMI, pupils reactive, face symmetric, [moist] mucous membranes CARDIOVASCULAR: Regular rate and rhythm without murmurs, rubs or gallops. RESPIRATORY: Breath sounds equal bilaterally, no wheezes rales or rhonchi. ABDOMEN: Soft, nontender. Normoactive bowel sounds all 4 quadrants. No guarding or rebound. EXTREMITIES: Normal range of motion, no clubbing. Bilateral +3 pitting edema with erythema pulses intact Neurovascularly intact NEUROLOGICAL: Alert and oriented x4. SKIN: Bilateral lower extremity erythematous his wounds were dressed no gross drainage mild serosanguineous drainage pulses are intact Course Orders Ordered: Discontinued Medications Bumetanide (Bumetanide 1 Mg/4 Ml Vial) 1 mg IV NOW ONE Stop: 04/10/22 06:31 Last Admin: 04/10/22 07:04 Dose: 1 mg Documented By: LUIS Furosemide (Furosemide 40 Mg/4 Ml Vial) 40 mg IV NOW ONE Stop: 04/10/22 03:51 Last Admin: 04/10/22 04:33 Dose: 40 mg Documented By: TORRES Ketorolac Tromethamine (Ketorolac 30 Mg/Ml Vial) 15 mg IV NOW ONE Stop: 04/10/22 02:38 Last Admin: 04/10/22 03:14 Dose: 15 mg Documented By: LUIS Vital Signs Vital signs: Vital Signs - 8 hr 04/10/22 02:33 Temperature 98.6 F Pulse Rate 115 H Respiratory Rate 18 Blood Pressure 145/93 H Pulse Oximetry 99 Oxygen Delivery Method Room Air MDM - Weakness Lab Data Result diagrams: 04/10/22 03:02 04/10/22 03:02 Labs: Lab Results 04/10/22 04/10/22 04/10/22 Range/Units 03:02 03:02 03:02 WBC 5.4 (4.5-11.0) X10^3/uL RBC 3.91 L (4.0-5.2) X10^6/uL Hgb 9.6 L (12.0-16.0) g/dL Hct 30.0 L (36-46) % MCV 76.7 L (80-100) fL MCH 24.5 L (26-34) PG MCHC 31.9 (30-36) % RDW 20.3 H (11.6-14.8) % Plt Count 224 (150-400) X10^3/uL Neut % (Auto) 68.8 (50-75) % Lymph % (Auto) 15.3 L (25-40) % Bleckley % (Auto) 14.4 H (3-14) % Eos % (Auto) 0.9 L (2-4) % Baso % (Auto) 0.6 (0-2) % Neut # (Auto) 3700 (8607-5744) /uL Lymph # (Auto) 800 L (0538-4317) /uL [place]ck[place] # (Auto) 800 (0-900) /uL Eos # (Auto) 0 (0-450) /uL Baso # (Auto) 0 (0-100) /uL RBC Morphology See below Microcytosis 1+ H Sodium 138 (137-145) mmol/L Potassium 3.9 (3.4-5.1) mmol/L Chloride 104 (98-107) mmol/L Carbon Dioxide 24 (22-32) mmol/L BUN 24 H (7-17) mg/dL Creatinine 1.04 (0.52-1.04) mg/dL Estimated GFR 55 L (>60) mL/min BUN/Creatinine Ratio 23.1 H (6-22) Glucose 201 H (80-110) mg/dL Lactate 1.4 (0.7-2.1) mmol/L Calcium 7.9 L (8.4-10.2) mg/dL Total Bilirubin 0.6 (0.2-1.3) mg/dL AST 24 (14-36) IU/L ALT 18 (<35) IU/L Alkaline Phosphatase 138 H (38-126) U/L Total Creatine Kinase 64 (30-135) U/L CK-MB (CK-2) TNP CK-MB (CK-2) Rel Index TNP Troponin I 0.032 (0.01-0.034) ng/mL NT-Pro-B Natriuret Pep 15843 H (<450) pg/mL Total Protein 7.0 (6.3-8.2) g/dL Albumin 3.8 (3.5-5.0) g/dL Globulin 3.2 (1.7-4.1) g/dL Albumin/Globulin Ratio 1.2 (1.0-2.8) Procalcitonin 0.17 (<0.5) ng/mL ECG Data Interpretation: Atrial fibrillation rate [address] changes MDM Narrative Medical decision making narrative: Patient has chronic ongoing wounds in her lower extremities with chronic ongoing edema. She is on torsemide 10 mg twice a day spironolactone. BNP is grossly elevated at 12,000 thousand previously was elevated at 22,000 two thousand. She has no hypoxia or shortness of breath. Her wounds do not look grossly infected she is afebrile without leukocytosis she is not septic. She is given a dose of Lasix here in the ED is. She does not need antibiotics at this time. Really here with kind of headache which has improved with Toradol his. Toradol was given prior to me knowing that she was on Xarelto. Unlikely to be DVT given that she is on Xarelto and is bilateral. She is mildly anemic with a hemoglobin 9.6 hematocrit of 30 previously 10.1 and 31.8. No significant change. At this time I really have a no admission criteria for her. She does not have bilateral cellulitis, sepsis coronary artery disease, AFib with RVR is or congestive heart failure requiring oxygen. At this time will increase her diuretic at home and have her follow Patient was given 40 mg of Lasix in the ED but she did not urinate. He is given a dose of Bumex. She is not having any sort of respiratory distress. Only increasing di[place] [address] and lower extremity edema and pain. Discharge Plan Departure Patient Disposition: Home Clinical Impression: CHF (congestive heart failure), Chronic wound of extremity Instructions: DI for Heart Failure Activity Restrictions/Additional Instructions: *You have been diagnosed with congestive heart failure, chronic wound *What to do: At this time no need for antibiotics. I am glad her headache is better. Let us increase torsemide at to help your swelling which should help the pain in your leg *Continue to take medications as directed Torsemide 20 mg twice a day for 4 days then resume 10 mg twice daily *Follow up with your primary care provider in 2-3 days or call [phone] *Return to ER if you should have fever chills increasing swelling chest pain shortness of breath or any new, worsening or concerning symptoms Prescriptions: No Action Women's 50 Plus Multivitamin 400 mcg-500 mg calcium-20 mcg tablet 1 tab PO DAILY Qty: 30 0RF spironolactone 25 mg tablet 25 mg PO DAILY Qty: 90 3RF omeprazole 20 mg tablet,delayed release (DR/EC) 20 mg PO BID Qty: 60 0RF levocetirizine [Xyzal] 5 mg tablet 5 mg PO DAILY PRN (Reason: allergy symptoms) Qty: 30 0RF triamcinolone acetonide 0.025 % cream 1 applic topical BID Qty: 15 0RF Rx Instructions: Do not use more than 2 weeks fluticasone propionate [Flonase Allergy Relief] 50 mcg/actuation spray,suspension 1 spray intranasal BID Qty: 16 2RF Rx Instructions: administer into each nostril losartan 25 mg tablet 25 mg PO DAILY Qty: 90 3RF metoprolol succinate [Toprol XL] 50 mg tablet extended release 24 hr See Rx Instructions PO SEE INSTRUCTIONS Qty: 270 3RF Dose Instruction: 2 1/2 tabs in the morning and 1 tab at night PO SEE INSTRUCTIONS; Rx Instructions: 125 mg AM, 50 mg PM diclofenac sodium 1 % gel 2 g topical QID PRN (Reason: wrist pain) Qty: 100 3RF Rx Instructions: apply to single elbow, wrist or hand; for hand includes palm/fingers/back of hand Alcohol Prep Pads QID Qty: 200 11RF acetaminophen 500 MG tablet 1,000 mg PO PRN PRNQty: 0 Disabled Parking Permit Qty: 1 0RF aspirin 81 mg tablet,delayed release (DR/EC) 81 mg PO QDAY Qty: 90 3RF (DME) Lancets 0 .Route .MEDSUPPLY Qty: 360 3RF Dose Instruction: As directed Rx Instructions: As directed (DME) True Metrix Glucose: Test Strips 0 .Route .MEDSUPPLY Qty: 360 3RF Dose Instruction: As directed Rx Instructions: Use to check blood sugar 4 times daily. (DME) Syringes: Ultra Fine Insulin Syringe w/Needle 0 .Route .MEDSUPPLY Qty: 100 3RF Dose Instruction: As directed Rx Instructions: Use to inject lantus daily at bedtime hydroxyzine HCl 25 mg tablet 25 mg PO BID PRN (Reason: itching) Qty: 180 3RF Lantus U-100 Insulin 100 unit/mL solution 15 unit SUBCUT HS Qty: 30 3RF metformin 1,000 mg tablet 1,000 mg PO BIDCC Qty: 180 3RF primidone [Mysoline] 50 mg tablet See Rx Instructions PO BID Qty: 270 3RF Dose Instruction: Take 1 tablet in the morning and two tablets at night PO BID; Rx Instructions: Take 1 tablet in the morning and two tablets at night Xarelto 20 mg tablet 20 mg PO QDAY Qty: 90 3RF rosuvastatin 20 mg tablet 20 mg PO HS Qty: 90 3RF torsemide 10 mg tablet 10 mg PO BID Qty: 10 0RF digoxin 125 mcg (0.125 mg) tablet 125 mcg PO DAILY Qty: 10 0RF benzonatate 100 mg capsule See Rx Instructions .ROUTE .COMPLEX Qty: 30 0RF Dose Instruction: TAKE 1 CAPSULE BY MOUTH THREE TIMES DAILY NEEDED FOR COUGH Rx Instructions: TAKE 1 CAPSULE BY MOUTH THREE TIMES DAILY NEEDED FOR COUGH Referrals: Idania Bruno DO [Primary Care Provider] - Visit Report Forms: Patient Portal/API
[2022-04-10] MEDS: KETOROLAC 30 MG/ML VIAL 15 MG IV (03:14)
[2022-04-10 03:15] LABS: Add Manual Diff / Slide Review NO; Basophils Absolute Auto 0 /uL (0-100); Basophils Percent Auto 0.6 % (0-2); Eosinophils Absolute Auto 0 /uL (0-450); Eosinophils Percent Auto 0.9 % (2-4); Hemoglobin 9.6 g/dL (12.0-16.0); Lymphocytes Absolute Auto 800 /uL (1100-4500); Lymphocytes Percent Auto 15.3 % (25-40); Mean Corpuscular HGB Conc 31.9 % (30-36); Mean Corpuscular Hemoglobin 24.5 PG (26-34); Mean Corpuscular Volume 76.7 fL (80-100); Monocytes Absolute Auto 800 /uL (0-900); Monocytes Percent Auto 14.4 % (3-14); Neutrophils Absolute Auto 3700 /uL (1500-7000); Neutrophils Percent Auto 68.8 % (50-75); Platelet Count 224 X10^3/uL (150-400); Red Blood Cell Count 3.91 X10^6/uL (4.0-5.2); Red Cell Distribution Width 20.3 % (11.6-14.8); White Blood Cell Count 5.4 X10^3/uL (4.5-11.0)
[2022-04-10 03:25] LABS: Alanine Aminotransferase 18 IU/L (<35); Albumin 3.8 g/dL (3.5-5.0); Albumin Globulin Ratio 1.2 (1.0-2.8); Alkaline Phosphatase 138 U/L (38-126); Aspartate Aminotransferase 24 IU/L (14-36); BUN Creatinine Ratio 23.1 (6-22); Bilirubin Total 0.6 mg/dL (0.2-1.3); Blood Urea Nitrogen 24 mg/dL (7-17); Calcium 7.9 mg/dL (8.4-10.2); Carbon Dioxide 24 mmol/L (22-32); Chloride 104 mmol/L (98-107); Creatine Kinase 64 U/L (30-135); Estimated Glomerular Filt Rate 55 mL/min (>60); Globulin 3.2 g/dL (1.7-4.1); Glucose 201 mg/dL (80-110); HEMOLYSIS 18 (0-50); Lactate (Lactic Acid) 1.4 mmol/L (0.7-2.1); Potassium 3.9 mmol/L (3.4-5.1); Sodium 138 mmol/L (137-145)
[2022-04-10 03:38] LABS: NT-proBNP (BNP-Adult 18+) 12400 pg/mL (<450); Troponin I 0.032 ng/mL (0.01-0.034)
[2022-04-10 03:42] LABS: Procalcitonin 0.17 ng/mL (<0.5)
[2022-04-10] MEDS: FUROSEMIDE 40 MG/4 ML VIAL IV (04:33)
[2022-04-10 06:50] LABS: Microcytosis 1+
[2022-04-10] MEDS: BUMETANIDE 1 MG/4 ML VIAL IV (07:04)
--- NOTE | 2022-04-10 08:47 | PC.NURSE ---
needed to call 911 lift assist to help patient get into her car.
== END 2022-04-10 08:25 | disposition home or self-care (01) ==
PROVIDERS: Emergency Provider Emergency Medicine; PCP Family Medicine
DX: I50.9 Heart failure, unspecified (principal); S91.302A Unspecified open wound, left foot, initial encounter; S91.301A Unspecified open wound, right foot, initial encounter; R51.9 Headache, unspecified; X58.XXXA Exposure to other specified factors, initial encounter
CPT/HCPCS: 36415; 80053; 82550; 83605; 83880; 84145; 84484; 85025; 93005; 96374; 96375; 99284; J1885; J1940

== ENCOUNTER → 2022-04-16 14:50 | Outpatient (CLI) | payer MEDICARE, OTHER, SELFPAY | PROVIDERS: PCP Family Medicine; Referring Provider Family Medicine; Visit Provider Nurse Practitioner Family | DX: I87.2 Venous insufficiency (chronic) (peripheral) (principal); L97.812 Non-pressure chronic ulcer of other part of right lower leg with fat layer exposed; L97.821 Non-pressure chronic ulcer of other part of left lower leg limited to breakdown of skin; R60.9 Edema, unspecified; E11.622 Type 2 diabetes mellitus with other skin ulcer; Z79.01 Long term (current) use of anticoagulants | CPT/HCPCS: 97597; 99213 ==

== ENCOUNTER 2022-06-05 23:26 | Emergency (ER) | payer MEDICARE, OTHER, SELFPAY ==
[2022-06-05 23:34] VITALS: BP 179/81; PULSE 68; O2SAT 99
[2022-06-05 23:37] VITALS: BP 179/81; PULSE 71; RESP 18; TEMP 36.5; O2SAT 98
--- NOTE | 2022-06-05 23:55 | ED_ITS ---
HPI - General Adult General Chief complaint: Weakness Stated complaint: weakness Time Seen by Provider: 06/05/22 23:31 Source: patient and EMS Mode of arrival: EMS Limitations: no limitations History of Present Illness HPI narrative: Patient is a 69-year-old female who arrives by EMS for evaluation of what was initially described as weakness however the patient states that the reason she is here is because she was having weakness in her left arm but she states that it is weak because she is having more tenderness in her left arm because earlier today she ?jerked? her left arm. She does admit that she has pain in this arm secondary to arthritis and the ?jerked? motion that she had earlier today made the symptoms worse. She is not tried anything for her symptoms. She reports no other injuries. No other complaints. She states that her left arm discomfort does radiate to her elbow and up into her neck. She is no chest pain. No shortness of breath. No headache. Related Data Home Medications Medication Instructions Recorded Confirmed acetaminophen 500 mg tablet 1,000 mg PO PRN PRN ##0 10/26/16 05/17/22 amlodipine 5 mg tablet 5 mg PO DAILY 05/12/22 05/17/22 Previous Rx's Medication Instructions Recorded Alcohol Prep Pads pad QID ##200 08/24/16 Disabled Parking Permit ea ##1 12/27/16 Lancets #360 ea 10/25/17 aspirin 81 mg tablet,delayed 81 mg PO QDAY #90 tabs 10/25/17 release Syringes: Ultra Fine Insulin #100 ea 02/22/20 Syringe w/Needle hydroxyzine HCl 25 mg tablet 25 mg PO BID PRN itching #180 tabs 05/27/21 insulin glargine 100 unit/mL 15 unit (0.15 mL) SUBCUT HS #30 mL 05/27/21 subcutaneous solution (Lantus U-100 Insulin) metformin 1,000 mg tablet 1,000 mg PO BIDCC #180 tabs 05/27/21 primidone 50 mg tablet (Mysoline) See Rx Instructions PO BID #270 05/27/21 tabs rivaroxaban 20 mg tablet (Xarelto) 20 mg PO QDAY #90 tabs 05/27/21 rosuvastatin 20 mg tablet 20 mg PO HS #90 tabs 05/27/21 triamcinolone acetonide 0.025 % 1 applic topical BID #15 grams 12/08/21 topical cream fluticasone propionate 50 1 spray intranasal BID #16 grams 12/15/21 mcg/actuation nasal spray,suspension (Flonase Allergy Relief) losartan 25 mg tablet 25 mg PO DAILY #90 tabs 12/15/21 metoprolol succinate 50 mg See Rx Instructions PO SEE 12/15/21 tablet,extended release 24 hr INSTRUCTIONS #270 tabs (Toprol XL) levocetirizine 5 mg tablet (Xyzal) 5 mg PO DAILY PRN allergy symptoms 01/21/22 #30 tabs [id number] ac 400 1 tab PO DAILY #30 tabs 01/21/22 mcg-calcium carb 500 mg-vit K1 20 mcg tablet (Women's 50 Plus Multivitamin) omeprazole 20 mg tablet,delayed 20 mg PO BID #60 tabs 01/21/22 release spironolactone 25 mg tablet 25 mg PO DAILY #90 tabs 01/21/22 digoxin 125 mcg (0.125 mg) tablet 125 mcg PO DAILY #10 tabs 02/16/22 torsemide 10 mg tablet 10 mg PO BID #10 tabs 02/16/22 benzonatate 100 mg capsule See Rx Instructions .Route 02/23/22 .COMPLEX #30 caps diclofenac sodium 1 % topical gel 2 g topical QID PRN wrist pain 03/04/22 #100 grams True Metrix Glucose: Test Strips #360 ea 04/28/22 nystatin 100,000 unit/gram topical 1 applic topical BID #60 grams 05/14/22 powder hydrocodone 5 mg-acetaminophen 325 1 tab PO BID PRN pain #10 tabs 05/19/22 mg tablet Allergies Allergy/AdvReac Type Severity Reaction Status Date / Time albuterol Allergy Mild HIVES Verified 06/05/22 23:37 Sulfa (Sulfonamide Allergy Unknown Verified 06/05/22 23:37 Antibiotics) diazepam AdvReac Mild gives pt Verified 06/05/22 23:37 anxiety Review of Systems Constitutional Constitutional: Reports system reviewed and no additional complaints, except as documented Musculoskeletal Musculoskeletal: Reports system reviewed and no additional complaints, except as documented Integumentary/Breasts Skin/Breast: Reports system reviewed and no additional complaints, except as doc umented Neurologic Neurologic: Reports system reviewed and no additional complaints, except as documented Patient History Medical History Abnormal Pap smear of cervix (~1999) Anemia Ankle pain B12 deficiency Cardiac arrhythmia (~1979) Cervical cancer (~1999) Chicken pox CKD (chronic kidney disease) Coronary artery disease (~2007) Diabetes mellitus Eczema Endometriosis (~1999) Foot pain GERD (gastroesophageal reflux disease) (~1962) GI bleeding Heart failure with reduced ejection fraction Hemorrhoid Hyperlipidemia (~1983) Hypertension (~1959) Myocardial infarction (~09/2014) Osteoarthritis Pulmonary embolism (~2014) Shoulder pain Venous insufficiency Surgical History Anesthesia History of angioplasty History of bladder suspension procedure Status post hysterectomy Status post laparoscopic cholecystectomy Surgical procedure planned (~2014) Social History pets and animals: No education level: college occupational status: other 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 travel history: other leisure activities: other other: Watching tv seatbelt use: always water heater temp set < 120 deg: Yes working smoke detector in home: Yes fire extinguisher in home: No carbon monox detector in home: Yes firearms in home: No Smoking Status: Never smoker alcohol intake: never substance use type: does not use during the past year weight has: remained stable well-balanced diet: about half the time daily servings fruits/ve-4 caffeine: No eating out: 1-3 times/week Type(s) of exercise: walking and other duration: 15-30 minutes/day Smoking Status: Never smoker alcohol intake frequency: holidays/special occasions only Alcohol type: wine Substance Use Type: does not use Exam Initial Vital Signs Initial Vital Signs: Vital Signs Pulse Rate 68 06/05/22 23:34 Blood Pressure 179/81 H 06/05/22 23:34 Pulse Oximetry 99 06/05/22 23:34 HENMT Head: normal to inspection and normocephalic Chest Chest: No tenderness Resp Effort & Inspection: normal respiratory effort Auscultation: clear to auscultation bilaterally Back/Spine/Pelvis Other: Tenderness left-sided cervical paraspinal region Neuro Sensory Exam: no sensory deficits noted Extrem Other: She does have tenderness to palpation throughout her left shoulder. She is difficulty moving her left shoulder secondary to the pain. Her left elbow is unremarkable. Course Orders Ordered: ED Orders 06/06/22 00:01 XR shoulder LT min 2V Stat Vital Signs Vital signs: Vital Signs - 8 hr 06/05/22 23:37 06/05/22 23:34 06/05/22 23:34 Temperature 97.7 F Pulse Rate 71 68 Respiratory Rate 18 Blood Pressure 179/81 H 179/81 H Pulse Oximetry 98 99 Oxygen Delivery Method Room Air 06/06/22 00:00 06/06/22 00:01 06/06/22 00:01 Temperature Pulse Rate 66 67 Respiratory Rate Blood Pressure 161/67 H Pulse Oximetry 98 98 Oxygen Delivery Method 06/06/22 00:30 06/06/22 01:00 06/06/22 04:14 Temperature 97.8 F Pulse Rate 66 70 73 Respiratory Rate 18 Blood Pressure 166/65 H Pulse Oximetry 97 98 98 Oxygen Delivery Method Room Air Medical Decision Making Differential Diagnosis Differential Diagnosis: Fractures, dislocation, septic joint, gout, and others Medical Records Medical records reviewed: Yes I reviewed the patient's medical records. Imaging Data Extremity x-ray #1: Radiologist's Impression: [place] [address] XRay Report Signed Patient: Dorcas Clement MR#: [id number] : 1945 Acct:[id number] Age/Sex: 77 / F Date of Service: 06/06/22 Loc: ED Accession Number: [id number] ?? Procedure: XR shoulder LT min 2V Ordering Provider: Joe Salmon D.O. PROCEDURE:? XR SHOULDER LT MIN 2V ? INDICATIONS:? pain after a jerking movement ? TECHNIQUE:? 3 views of the shoulder were acquired.? ? COMPARISON:? None. ? FINDINGS:? ? Bones:? No fractures or dislocations but there is significant superior subluxation of humeral head cephalad across the glenoid, abutting with apposition against the undersurface of the acromion..? No suspicious bony lesions.? Visualized ribs appear intact.? ? Soft tissues:? No suspicious soft tissue calcifications.? ? IMPRESSION:? The superior subluxation of humeral head against the undersurface of the acromion is diagnostic of full-thickness supraspinatus region rotator cuff tear.? Fracture is not found.? Moderately severe degenerative osteoarthritic changes noted at the acromioclavicular joint. ? ? Dictated by: Chris Gutierrez M.D. on 06/06/2022 at 0:33 ? ? Approved by: Chris Gutierrez M.D. on 06/06/2022 at 0:34? MDM Narrative Medical decision making narrative: X-ray shows what looks like high riding humerus which would be concerning for rotator cuff injury. There are no acute pathology findings noted on the x-rays. She reports no other injuries from the event earlier today. She states that the weakness that she was having his to her left shoulder otherwise she feels like she is at baseline. Review of her medical record shows that there has been discussions in the past about other living situation such as rehab and also home health. She stated that she fired her home health provider. She stated that she did not get along with that individual. She would like to stay at home. No indication for admission to the hospital. Will discharge patient home with return precautions. Discharge Plan Departure Patient Disposition: Home Clinical Impression: Left shoulder pain Instructions: DI for Shoulder Pain Activity Restrictions/Additional Instructions: The x-ray did not show any signs of a fracture nor dislocation. Recommend that you continue to take all of your medications as directed. Contact your primary doctor for a follow-up. Return to the emergency department for new symptoms. Prescriptions: No Action Women's 50 Plus Multivitamin 400 mcg-500 mg calcium-20 mcg tablet 1 tab PO DAILY Qty: 30 0RF spironolactone 25 mg tablet 25 mg PO DAILY Qty: 90 3RF omeprazole 20 mg tablet,delayed release (DR/EC) 20 mg PO BID Qty: 60 0RF levocetirizine [Xyzal] 5 mg tablet 5 mg PO DAILY PRN (Reason: allergy symptoms) Qty: 30 0RF triamcinolone acetonide 0.025 % cream 1 applic topical BID Qty: 15 0RF Rx Instructions: Do not use more than 2 weeks fluticasone propionate [Flonase Allergy Relief] 50 mcg/actuation spr ay,suspension 1 spray intranasal BID Qty: 16 2RF Rx Instructions: administer into each nostril losartan 25 mg tablet 25 mg PO DAILY Qty: 90 3RF metoprolol succinate [Toprol XL] 50 mg tablet extended release 24 hr See Rx Instructions PO SEE INSTRUCTIONS Qty: 270 3RF Dose Instruction: 2 1/2 tabs in the morning and 1 tab at night PO SEE INSTRUCTIONS; Rx Instructions: 125 mg AM, 50 mg PM diclofenac sodium 1 % gel 2 g topical QID PRN (Reason: wrist pain) Qty: 100 3RF Rx Instructions: apply to single elbow, wrist or hand; for hand includes palm/fingers/back of hand Alcohol Prep Pads QID Qty: 200 11RF acetaminophen 500 MG tablet 1,000 mg PO PRN PRNQty: 0 Disabled Parking Permit Qty: 1 0RF aspirin 81 mg tablet,delayed release (DR/EC) 81 mg PO QDAY Qty: 90 3RF (DME) Lancets 0 .Route .MEDSUPPLY Qty: 360 3RF Dose Instruction: As directed Rx Instructions: As directed (DME) Syringes: Ultra Fine Insulin Syringe w/Needle 0 .Route .MEDSUPPLY Qty: 100 3RF Dose Instruction: As directed Rx Instructions: Use to inject lantus daily at bedtime hydroxyzine HCl 25 mg tablet 25 mg PO BID PRN (Reason: itching) Qty: 180 3RF Lantus U-100 Insulin 100 unit/mL solution 15 unit SUBCUT HS Qty: 30 3RF metformin 1,000 mg tablet 1,000 mg PO BIDCC Qty: 180 3RF primidone [Mysoline] 50 mg tablet See Rx Instructions PO BID Qty: 270 3RF Dose Instruction: Take 1 tablet in the morning and two tablets at night PO BID; Rx Instructions: Take 1 tablet in the morning and two tablets at night Xarelto 20 mg tablet 20 mg PO QDAY Qty: 90 3RF rosuvastatin 20 mg tablet 20 mg PO HS Qty: 90 3RF torsemide 10 mg tablet 10 mg PO BID Qty: 10 0RF digoxin 125 mcg (0.125 mg) tablet 125 mcg PO DAILY Qty: 10 0RF benzonatate 100 mg capsule See Rx Instructions .ROUTE .COMPLEX Qty: 30 0RF Dose Instruction: TAKE 1 CAPSULE BY MOUTH THREE TIMES DAILY NEEDED FOR COUGH Rx Instructions: TAKE 1 CAPSULE BY MOUTH THREE TIMES DAILY NEEDED FOR COUGH (DME) True Metrix Glucose: Test Strips 0 .Route .MEDSUPPLY Qty: 360 3RF Dose Instruction: As directed Rx Instructions: Use to check blood sugar 4 times daily. amlodipine 5 mg tablet 5 mg PO DAILY nystatin 100,000 unit/gram powder 1 applic topical BID Qty: 60 2RF Rx Instructions: Apply to affected areas (chest & abdomen) twice daily. hydrocodone-acetaminophen 5-325 mg tablet 1 tab PO BID PRN (Reason: pain) Qty: 10 0RF Referrals: Idania Bruno DO [Primary Care Provider] - Stand Alone Forms: Patient Portal/API
[2022-06-06] VITALS: PULSE 66; O2SAT 98
[2022-06-06 00:01] VITALS: BP 161/67; PULSE 67; O2SAT 98
--- NOTE | 2022-06-06 00:01 | DI.RAD.S_ITS ---
PROCEDURE: XR SHOULDER LT MIN 2V INDICATIONS: pain after a jerking movement TECHNIQUE: 3 views of the shoulder were acquired. COMPARISON: None. FINDINGS: Bones: No fractures or dislocations but there is significant superior subluxation of humeral head cephalad across the glenoid, abutting with apposition against the undersurface of the acromion.. No suspicious bony lesions. Visualized ribs appear intact. Soft tissues: No suspicious soft tissue calcifications. IMPRESSION: The superior subluxation of humeral head against the undersurface of the acromion is diagnostic of full-thickness supraspinatus region rotator cuff tear. Fracture is not found. Moderately severe degenerative osteoarthritic changes noted at the acromioclavicular joint. Dictated by: Chris Gutierrez M.D. on 06/06/2022 at 0:33 Approved by: Chris Gutierrez M.D. on 06/06/2022 at 0:34
[2022-06-06 00:30] VITALS: PULSE 66; O2SAT 97
[2022-06-06 01:00] VITALS: PULSE 70; O2SAT 98
[2022-06-06 04:14] VITALS: BP 166/65; PULSE 73; RESP 18; TEMP 36.6; O2SAT 98
== END 2022-06-06 04:16 | disposition home or self-care (01) ==
PROVIDERS: Emergency Provider Emergency Medicine; PCP Family Medicine
DX: M25.512 Pain in left shoulder (principal)
CPT/HCPCS: 73030; 99281; 99283

== ENCOUNTER 2022-07-09 16:46 | Inpatient (IN) | payer MEDICARE, OTHER, SELFPAY ==
[2022-07-09 16:54] VITALS: BP 135/104; PULSE 104; RESP 16; TEMP 36.3; O2SAT 99; BMI 41.5
--- NOTE | 2022-07-09 17:02 | DI.RAD.S_ITS ---
PROCEDURE: XR CHEST 1V INDICATIONS: suspected sepsis TECHNIQUE: One view of the chest was acquired. COMPARISON: [facility], CHEST 1 VIEW, 10/26/2016, 16:09. [facility], CHEST 1 VIEW, 08/06/2016, 12:15. FINDINGS: Surgical changes and devices: None. Lungs and pleura: Lungs are clear. No pleural effusions or pneumothorax. Mediastinum: Mediastinal contours appear unchanged. Heart size is enlarged. Bones and chest wall: No suspicious bony lesions. Overlying soft tissues appear unremarkable. IMPRESSION: No acute cardiopulmonary abnormality identified. Consider CT for further evaluation. Dictated by: Rakesh Rhodes M.D. on 07/09/2022 at 17:50 Approved by: Rakesh Rhodes M.D. on 07/09/2022 at 17:51
[2022-07-09 17:33] LABS: Add Manual Diff / Slide Review NO; Basophils Absolute Auto 0 /uL (0-100); Basophils Percent Auto 0.8 % (0-2); Eosinophils Absolute Auto 100 /uL (0-450); Hematocrit 29.2 % (36-46); Hemoglobin 9.1 g/dL (12.0-16.0); Lymphocytes Absolute Auto 900 /uL (1100-4500); Lymphocytes Percent Auto 15.7 % (25-40); Mean Corpuscular HGB Conc 31.4 % (30-36); Mean Corpuscular Hemoglobin 24.2 PG (26-34); Monocytes Absolute Auto 700 /uL (0-900); Monocytes Percent Auto 12.9 % (3-14); Neutrophils Absolute Auto 3800 /uL (1500-7000); Neutrophils Percent Auto 69.6 % (50-75); Platelet Count 232 X10^3/uL (150-400); Red Blood Cell Count 3.79 X10^6/uL (4.0-5.2); Red Cell Distribution Width 20.8 % (11.6-14.8); White Blood Cell Count 5.5 X10^3/uL (4.5-11.0)
[2022-07-09 17:41] LABS: INR 1.3 (0.9-1.3); Prothrombin Time 15.5 SECONDS (10.1-12.7)
[2022-07-09 17:44] LABS: PTT Partial Thromboplastin Tim 31 SECONDS (26-36)
[2022-07-09 17:46] LABS: Alanine Aminotransferase 20 IU/L (<35); Albumin 3.2 g/dL (3.5-5.0); Albumin Globulin Ratio 0.9 (1.0-2.8); Alkaline Phosphatase 242 U/L (38-126); Aspartate Aminotransferase 28 IU/L (14-36); BUN Creatinine Ratio 29.2 (6-22); Bilirubin Total 0.5 mg/dL (0.2-1.3); Blood Urea Nitrogen 28 mg/dL (7-17); Calcium 7.9 mg/dL (8.4-10.2); Carbon Dioxide 20 mmol/L (22-32); Chloride 105 mmol/L (98-107); Estimated Glomerular Filt Rate > 60 mL/min (>60); Globulin 3.4 g/dL (1.7-4.1); Glucose 227 mg/dL (80-110); HEMOLYSIS < 15 (0-50); Lipase 675 U/L (23-300); Potassium 4.7 mmol/L (3.4-5.1); Sodium 134 mmol/L (137-145); Total Protein 6.6 g/dL (6.3-8.2)
[2022-07-09 17:55] LABS: NT-proBNP (BNP-Adult 18+) 14800 pg/mL (<450)
[2022-07-09 18:02] LABS: Procalcitonin 0.15 ng/mL (<0.5)
[2022-07-09 18:18] LABS: Hypochromasia 1+; Microcytosis 1+
--- NOTE | 2022-07-09 19:50 | ED.SKABFB ---
HPI - Skin/Abscess/Foreign Bdy General Chief complaint: Skin/Abscess/Foreign Body Stated complaint: Heel x 2 days. No fever Time Seen by Provider: 07/09/22 19:21 History of Present Illness HPI narrative: 77-year-old female nonsmoker with history of CHF, hypertension, coronary artery disease presents by ambulance due to increasing pain, swelling and drainage from her legs. She states that she has had swelling in her legs for quite some time and she is previously had infections and was on antibiotics but no longer is. She states that when she came off the antibiotics her legs began rapidly getting more red, painful and draining foul-smelling liquid. She denies any dizziness or lightheadedness but is generally weak and has had fever and shaking chills. She denies any chest pain or new shortness of breath. She is been nauseated but denies vomiting. She denies abdominal pain, dysuria, frequency or urgency. She denies any change in her medications. She lives at home alone and has had a very difficult time getting around. She states that her symptoms have rapidly been worsening over the past few days. Related Data Home Medications Medication Instructions Recorded Confirmed acetaminophen 500 mg tablet 1,000 mg PO PRN PRN Pain (Scale 10/26/16 07/10/22 Score 1-3) ##0 amlodipine 5 mg tablet 5 mg PO DAILY 05/12/22 07/10/22 Disabled Parking Permit 1 ea 07/10/22 diphenhydramine HCl 25 mg capsule 25 mg PO TID PRN Allergy Symptoms 07/10/22 07/10/22 (Allergy (diphenhydramine)) insulin glargine 100 unit/mL 19 unit SUBCUT HS 07/10/22 07/10/22 subcutaneous solution (Lantus U-100 Insulin) losartan 25 mg tablet 50 mg PO DAILY 07/10/22 07/10/22 spironolactone 50 mg tablet 50 mg PO DAILY 07/10/22 07/10/22 torsemide 10 mg tablet 10 mg PO BID 07/10/22 07/10/22 vitamin B complex 1 cap PO DAILY 07/10/22 07/10/22 Previous Rx's Medication Instructions Recorded Lancets #360 ea 10/25/17 aspirin 81 mg tablet,delayed 81 mg PO QDAY #90 tabs 10/25/17 release Syringes: Ultra Fine Insulin #100 ea 02/22/20 Syringe w/Needle hydroxyzine HCl 25 mg tablet 25 mg PO BID PRN itching #180 tabs 05/27/21 metformin 1,000 mg tablet 1,000 mg PO BIDCC #180 tabs 05/27/21 primidone 50 mg tablet (Mysoline) See Rx Instructions PO BID #270 05/27/21 tabs rivaroxaban 20 mg tablet (Xarelto) 20 mg PO QDAY #90 tabs 05/27/21 rosuvastatin 20 mg tablet 20 mg PO HS #90 tabs 05/27/21 triamcinolone acetonide 0.025 % 1 applic topical BID #15 grams 12/08/21 topical cream fluticasone propionate 50 1 spray intranasal BID #16 grams 12/15/21 mcg/actuation nasal spray,suspension (Flonase Allergy Relief) metoprolol succinate 50 mg See Rx Instructions PO SEE 12/15/21 tablet,extended release 24 hr INSTRUCTIONS #270 tabs (Toprol XL) levocetirizine 5 mg tablet (Xyzal) 5 mg PO DAILY PRN allergy symptoms 01/21/22 #30 tabs qmxlnbrb-xnx-zczon ac 400 1 tab PO DAILY #30 tabs 01/21/22 mcg-calcium carb 500 mg-vit K1 20 mcg tablet (Women's 50 Plus Multivitamin) omeprazole 20 mg tablet,delayed 20 mg PO BID #60 tabs 01/21/22 release digoxin 125 mcg (0.125 mg) tablet 125 mcg PO DAILY #10 tabs 02/16/22 True Metrix Glucose: Test Strips #360 ea 04/28/22 nystatin 100,000 unit/gram topical 1 applic topical BID #60 grams 05/14/22 powder Allergies Allergy/AdvReac Type Severity Reaction Status Date / Time albuterol Allergy Mild HIVES Verified 06/05/22 23:37 Sulfa (Sulfonamide Allergy Unknown Verified 06/05/22 23:37 Antibiotics) diazepam AdvReac Mild gives pt Verified 06/05/22 23:37 anxiety Review of Systems Review of Systems Narrative: GENERAL: See HPI HEENT: Denies sinus pain, ear pain, sore throat, difficulty swallowing, dizziness. RESPIRATORY: Denies dyspnea, cough, wheezing, hemoptysis, sputum. CARDIOVASCULAR: Denies chest pain, palpitations, orthopnea, edema, GASTROINTESTINAL: Denies nausea, vomiting, abdominal pain, diarrhea, constipation, melena. : Denies dysuria, frequency, incontinence, hematuria, urinary retention. MUSCULOSKELETAL: denies weakness, joint pain, or bony pain SKIN: See HPI NEUROLOGIC: Denies weakness, headache, numbness, change in speech, confusion, seizures, incoordination. PSYCHIATRIC: No concerning psychosocial issues. 12 point review of systems is negative except for those stated above Patient History Medical History Abnormal Pap smear of cervix (~1999) Anemia Ankle pain Anticoagulated B12 deficiency Cardiac arrhythmia (~1979) Cellulitis of both lower extremities Cervical cancer (~1999) Chicken pox Chronic pruritus Chronic venous stasis CKD (chronic kidney disease) Coronary artery disease (~2007) Diabetes mellitus Eczema Endometriosis (~1999) Foot pain GERD (gastroesophageal reflux disease) (~1962) GI bleeding Heart failure with reduced ejection fraction Hemorrhoid Hyperlipidemia (~1983) Hypertension (~1959) Myocardial infarction (~09/2014) Osteoarthritis Pulmonary embolism (~2014) Shoulder pain Venous insufficiency Surgical History Anesthesia History of angioplasty History of bladder suspension procedure Status post hysterectomy Status post laparoscopic cholecystectomy Surgical procedure planned (~2014) Family History Mother Cervical cancer Father Prostate cancer Social History household members: none pets and animals: No education level: college occupational status: other tatianna/evangelical: Confucianist travel history: other leisure activities: other other: Watching tv seatbelt use: always water heater temp set < 120 deg: Yes working smoke detector in home: Yes fire extinguisher in home: No carbon monox detector in home: Yes firearms in home: No Smoking Status: Never smoker alcohol intake: never substance use type: does not use during the past year weight has: remained stable well-balanced diet: about half the time daily servings fruits/ve-4 caffeine: No eating out: 1-3 times/week Type(s) of exercise: walking and other duration: 15-30 minutes/day Smoking Status: Never smoker alcohol intake frequency: holidays/special occasions only Alcohol type: wine Substance Use Type: does not use Exam Narrative Exam Narrative: GENERAL: [77] year old patient appears stated age. Well-developed patient, in mild distress. HEAD: Atraumatic. Normocephalic. EYES: Pupils equal round and reactive. Extraocular motions intact. No scleral icterus. No injection or drainage. ENT: Nose without bleeding, purulent drainage. Throat without erythema, tonsillar hypertrophy or exudate. Airway patent. NECK: Trachea midline. Non tender CARDIOVASCULAR: Regular rate and rhythm without murmurs, gallops, or rubs. RESPIRATORY: Prolonged expiratory phase with faint crackles in bilateral bases GASTROINTESTINAL: Abdomen soft, non-tender, nondistended. EXTREMITIES: Significant edema bilateral lower extremities with marked, beefy red appearance, quite tender to palpation, foul-smelling purulent drainage from various ulcerated regions, patient states that she normally has swollen legs and some minimal discoloration but the redness, pain and drainage is new over the past few days. BACK: Nontender without deformity or crepitance. No flank tenderness. NEURO: AOx3. Initial Vital Signs Initial Vital Signs: Vital Signs Temperature 97.4 F L 07/09/22 16:54 Pulse Rate 104 H 07/09/22 16:54 Respiratory Rate 16 07/09/22 16:54 Blood Pressure 135/104 H 07/09/22 16:54 Pulse Oximetry 99 07/09/22 16:54 Oxygen Delivery Method Room Air 07/09/22 16:54 Course Orders Ordered: ED Orders 07/09/22 22:50 Wound Culture and Gram Stain Stat 07/09/22 23:58 COVID19 -Nasal RAPID/Pre-Proc Stat Amlodipine Besylate (Amlodipine 5 Mg Tablet) 5 mg PO DAILY AMPARO Atorvastatin Calcium (Atorvastatin 20 Mg Tablet) 40 mg PO BEDTIME AMPARO Dextrose (Dextrose 50 % In Water 25 Gm/50 Ml Syringe) 25 gm IV PRN PRN PRN Reason: Hypoglycemia Digoxin (Digoxin 0.125 Mg Tablet) 0.125 mg PO DAILY AMPARO Diphenhydramine HCl (Diphenhydramine 25 Mg Tablet) 25 mg PO Q6HR PRN PRN Reason: Itching Last Admin: 07/10/22 03:12 Dose: 25 mg Documented By: CHINO Hydroxyzine Pamoate (Hydroxyzine Pamoate 25 Mg Capsule) 25 mg PO Q6HR PRN PRN Reason: Nausea Last Admin: 07/10/22 04:50 Dose: 25 mg Documented By: CHINO Influenza Virus Vaccine (Influenza Hd Vaccine 0.7 Ml Syringe) 0.7 ml IM .ONCE ONE Stop: 07/10/22 09:01 Insulin Glargine (Insulin Glargine 100 Unit/Ml 3ml Pen) 19 unit SUBCUT 2100 AMPARO Insulin Human Lispro (Insulin Lispro 100 Unit/Ml 3ml Vial) 0 unit SUBCUT ACHS AMPARO; Protocol Losartan Potassium (Losartan 50 Mg Tablet) 50 mg PO DAILY AMPARO Metoprolol Tartrate (Metoprolol Ir 50 Mg Tablet) 150 mg PO DAILY AMPARO Metoprolol Tartrate (Metoprolol Ir 50 Mg Tablet) 50 mg PO QPM AMPARO Nystatin (Nystatin Powder 15gm) 1 applic TOP TID PRN PRN Reason: Rash Last Admin: 07/10/22 00:46 Dose: 1 applic Documented By: CHINO Pantoprazole Sodium (Pantoprazole Dr 40 Mg Tablet) 20 mg PO 0700,2100 [facility] Primidone (Primidone 50 Mg Tablet) 50 mg PO DAILY AMPARO Primidone (Primidone 50 Mg Tablet) 100 mg PO BEDTIME AMPARO Rivaroxaban (Rivaroxaban 10 Mg Tablet) 20 mg PO DAILY AMPARO Discontinued Medications Furosemide (Furosemide 40 Mg/4 Ml Vial) 40 mg IV NOW ONE Stop: 07/09/22 22:49 Last Admin: 07/09/22 23:47 Dose: 40 mg Documented By: AMIRA Sodium Chloride (Normal Saline 0.9%) 1,000 mls @ 1,000 mls/hr IV BOLUS ONE Stop: 07/09/22 18:01 Last Infusion: 07/09/22 21:05 Dose: 0 mls/hr Documented By: Admin: 07/09/22 20:05 Dose: 1,000 mls/hr Documented By: AMIRA Vancomycin HCl/Dextrose (Vancomycin) 2,000 mg in 400 mls @ 200 mls/hr IV NOW ONE Stop: 07/10/22 00:48 Last Infusion: 07/10/22 02:13 Dose: 0 mls/hr Documented By: Admin: 07/09/22 23:49 Dose: 200 mls/hr Documented By: AMIRA Vancomycin HCl (Vancomycin Per Pharmacy) 1 request MISC NOW ONE Stop: 07/09/22 23:20 Last Admin: 07/10/22 00:46 Dose: Not Given Documented By: CHINO Vital Signs Vital signs: Vital Signs - 8 hr 07/09/22 22:48 Pulse Rate 99 H Respiratory Rate 25 H MDM - Skin/Abscess/Foreign Bdy Lab Data 07/09/22 17:25 07/09/22 17:25 Labs: Lab Results 07/09/22 07/09/22 07/09/22 Range/Units 17:25 17:25 17:25 WBC 5.5 (4.5-11.0) X10^3/uL RBC 3.79 L (4.0-5.2) X10^6/uL Hgb 9.1 L (12.0-16.0) g/dL Hct 29.2 L (36-46) % MCV 77.0 L (80-100) fL MCH 24.2 L (26-34) PG MCHC 31.4 (30-36) % RDW 20.8 H (11.6-14.8) % Plt Count 232 (150-400) X10^3/uL Neut % (Auto) 69.6 (50-75) % Lymph % (Auto) 15.7 L (25-40) % [place] % (Auto) 12.9 (3-14) % Eos % (Auto) 1.0 L (2-4) % Baso % (Auto) 0.8 (0-2) % Neut # (Auto) 3800 (8349-8815) /uL Lymph # (Auto) 900 L (3816-9227) /uL [place] # (Auto) 700 (0-900) /uL Eos # (Auto) 100 (0-450) /uL Baso # (Auto) 0 (0-100) /uL RBC Morphology See below Hypochromasia 1+ H Microcytosis 1+ H PT 15.5 H (10.1-12.7) SECONDS INR 1.3 (0.9-1.3) APTT 31 (26-36) SECONDS Sodium 134 L (137-145) mmol/L Potassium 4.7 (3.4-5.1) mmol/L Chloride 105 (98-107) mmol/L Carbon Dioxide 20 L (22-32) mmol/L BUN 28 H (7-17) mg/dL Creatinine 0.96 (0.52-1.04) mg/dL Estimated GFR > 60 (>60) mL/min BUN/Creatinine Ratio 29.2 H (6-22) Glucose 227 H (80-110) mg/dL Hemoglobin A1c (4.0-6.0) % Lactate (0.7-2.1) mmol/L Calcium 7.9 L (8.4-10.2) mg/dL Total Bilirubin 0.5 (0.2-1.3) mg/dL AST 28 (14-36) IU/L ALT 20 (<35) IU/L Alkaline Phosphatase 242 H (38-126) U/L Total Creatine Kinase (30-135) U/L CK-MB (CK-2) CK-MB (CK-2) Rel Index Troponin I (0.01-0.034) ng/mL NT-Pro-B Natriuret Pep (<450) pg/mL Total Protein 6.6 (6.3-8.2) g/dL Albumin 3.2 L (3.5-5.0) g/dL Globulin 3.4 (1.7-4.1) g/dL Albumin/Globulin Ratio 0.9 L (1.0-2.8) Lipase 675 H (23-300) U/L Procalcitonin 0.15 (<0.5) ng/mL 07/09/22 07/09/22 07/09/22 Range/Units 17:25 17:25 17:25 WBC (4.5-11.0) X10^3/uL RBC (4.0-5.2) X10^6/uL Hgb (12.0-16.0) g/dL Hct (36-46) % MCV (80-100) fL MCH (26-34) PG MCHC (30-36) % RDW (11.6-14.8) % Plt Count (150-400) X10^3/uL Neut % (Auto) (50-75) % Lymph % (Auto) (25-40) % [place] % (Auto) (3-14) % Eos % (Auto) (2-4) % Baso % (Auto) (0-2) % Neut # (Auto) (0722-4023) /uL Lymph # (Auto) (4647-9127) /uL [place] # (Auto) (0-900) /uL Eos # (Auto) (0-450) /uL Baso # (Auto) (0-100) /uL RBC Morphology Hypochromasia Microcytosis PT (10.1-12.7) SECONDS INR (0.9-1.3) APTT (26-36) SECONDS Sodium (137-145) mmol/L Potassium (3.4-5.1) mmol/L Chloride (98-107) mmol/L Carbon Dioxide (22-32) mmol/L BUN (7-17) mg/dL Creatinine (0.52-1.04) mg/dL Estimated GFR (>60) mL/min BUN/Creatinine Ratio (6-22) Glucose (80-110) mg/dL Hemoglobin A1c (4.0-6.0) % Lactate 2.0 (0.7-2.1) mmol/L Calcium (8.4-10.2) mg/dL Total Bilirubin (0.2-1.3) mg/dL AST (14-36) IU/L ALT (<35) IU/L Alkaline Phosphatase (38-126) U/L Total Creatine Kinase 51 (30-135) U/L CK-MB (CK-2) TNP CK-MB (CK-2) Rel Index TNP Troponin I 0.015 (0.01-0.034) ng/mL NT-Pro-B Natriuret Pep 42806 H 35155 H (<450) pg/mL Total Protein (6.3-8.2) g/dL Albumin (3.5-5.0) g/dL Globulin (1.7-4.1) g/dL Albumin/Globulin Ratio (1.0-2.8) Lipase (23-300) U/L Procalcitonin (<0.5) ng/mL 07/09/22 Range/Units 17:25 WBC (4.5-11.0) X10^3/uL RBC (4.0-5.2) X10^6/uL Hgb (12.0-16.0) g/dL Hct (36-46) % MCV (80-100) fL MCH (26-34) PG MCHC (30-36) % RDW (11.6-14.8) % Plt Count (150-400) X10^3/uL Neut % (Auto) (50-75) % Lymph % (Auto) (25-40) % [place] % (Auto) (3-14) % Eos % (Auto) (2-4) % Baso % (Auto) (0-2) % Neut # (Auto) (8385-0295) /uL Lymph # (Auto) (4183-6662) /uL [place] # (Auto) (0-900) /uL Eos # (Auto) (0-450) /uL Baso # (Auto) (0-100) /uL RBC Morphology Hypochromasia Microcytosis PT (10.1-12.7) SECONDS INR (0.9-1.3) APTT (26-36) SECONDS Sodium (137-145) mmol/L Potassium (3.4-5.1) mmol/L Chloride (98-107) mmol/L Carbon Dioxide (22-32) mmol/L BUN (7-17) mg/dL Creatinine (0.52-1.04) mg/dL Estimated GFR (>60) mL/min BUN/Creatinine Ratio (6-22) Glucose (80-110) mg/dL Hemoglobin A1c 7.9 H (4.0-6.0) % Lactate (0.7-2.1) mmol/L Calcium (8.4-10.2) mg/dL Total Bilirubin (0.2-1.3) mg/dL AST (14-36) IU/L ALT (<35) IU/L Alkaline Phosphatase (38-126) U/L Total Creatine Kinase (30-135) U/L CK-MB (CK-2) CK-MB (CK-2) Rel Index Troponin I (0.01-0.034) ng/mL NT-Pro-B Natriuret Pep (<450) pg/mL Total Protein (6.3-8.2) g/dL Albumin (3.5-5.0) g/dL Globulin (1.7-4.1) g/dL Albumin/Globulin Ratio (1.0-2.8) Lipase (23-300) U/L Procalcitonin (<0.5) ng/mL MDM Narrative Medical decision making narrative: [77] year old patient presents with rapidly worsening painful swollen red lower extremities with foul-smelling drainage Multiple etiologies for patient's symptoms considered including, but not limited to: [Cellulitis, CHF versus other] Prior Charts reviewed in our EMR Primary Historian: patient Labs reviewed and interpreted by myself: No significant leukocytosis or left shift Imaging reviewed: No acute process Consultations: Hospitalist happy to accept Patient with advanced age and multiple comorbidities presents with rapidly worsening painful, swollen, erythematous bilateral lower extremities with a drainage of foul-smelling material. She is had subjective fever and shaking chills and feels generally weak and unwell. Though she chronically has swelling she states that the pain, redness and drainage is significantly worsened over the past few days. Patient requires hospitalization for ongoing treatment and stabilization of her condition. Social determinants include significant elderly patient that lives at home alone with limited access to resources Discharge Plan Departure Patient Disposition: Admitted As Inpatient Clinical Impression: Bilateral cellulitis of lower leg, Acute CHF Admit Date/Time: 07/09/22 22:59 Admit Provider: Nathaly Yu
[2022-07-09 20:02] LABS: Creatine Kinase 51 U/L (30-135)
[2022-07-09] MEDS: SODIUM CHLORIDE 0.9% 1,000 ML 1000 ML IV (20:05)
[2022-07-09 20:15] LABS: NT-proBNP (BNP-Adult 18+) 14600 pg/mL (<450); Troponin I 0.015 ng/mL (0.01-0.034)
[2022-07-09 22:48] VITALS: PULSE 99; RESP 25
[2022-07-09 23:00] VITALS: PULSE 100; RESP 16
[2022-07-09 23:30] VITALS: PULSE 94; RESP 15
[2022-07-09] MEDS: FUROSEMIDE 40 MG/4 ML VIAL IV (23:47)
[2022-07-09] MEDS: VANCOMYCIN 2,000 MG/400 ML PIGGYBACK 200 MG IV (23:49)
[2022-07-10] VITALS (8 sets, daily range): BP systolic 118–189; BP diastolic 51–118; PULSE 67–115; RESP 16–21; TEMP 36.4–36.9; O2SAT 98–100; BMI 52.2
[2022-07-10 00:45] LABS: COVID19 -Nasal RAPID Negative (Negative)
[2022-07-10] MEDS: NYSTATIN POWDER 15GM 1 APPLIC TOP (00:46)
--- NOTE | 2022-07-10 01:33 | P.HP_ITS ---
History of Present Illness History of Present Illness Date Patient Seen: 07/10/22 Time Patient Seen: 01:15 Chief complaint: Bilateral leg wounds Narrative: Dorcas Clement is a 77 y.o. female with diabetes type 2 currently on insulin, hypertension, CAD and a past history of LAD with stent, heart failure with a reduced ejection fraction, permanent atrial fibrillation anticoagulated on rivaroxaban, chronic puritis presented to the ED with bilateral lower extremity swelling, weeping and pain. Patient states that she itches all the time, this time she woke up scratching her legs. She denies fever or chills, she has had sinus headaches, denies n/v, denies urinary incontinence, but has urgency, denies diarrhea or constipation. She has an essential tremor for which she takes primadone. Due to suspected sepsis, ED ordered a chest xray, which did not report any acute abnormalities. She is afebrile, blood pressure 148/88 heart rate 102 respiratory rate 21 oxygen saturation of 99% on room air she weighs 99.8 kg with a BMI of 41.6. White count is normal she is mildly anemic with a hemoglobin and hematocrit 9.1 and 29.2 respectively with a mildly abnormal smear sodium 134 bicarb 20 BUN 28 normal creatinine glucose is 227 A1c is pending calcium is 7.9 alk-phos is [address] [place] [address] albumin is 3.2 and lipase is elevated at 675. COVID-19 PCR is negative. She was administered a one time dose of IV lasix in the ED and initiated on IV vancomycin for bilateral lower extremity cellulitis. She sees Dr. York, Communication Center Operator and underwent a transthoracic echocardiogram in November 2021. At that time, her LEVF was estimated to be 35 =/_ 5% w/ moderate global hypokenisis of the left ventricle. Patient History Medical History Abnormal Pap smear of cervix (~1999) Anemia Ankle pain Anticoagulated B12 deficiency Cardiac arrhythmia (~1979) Cellulitis of both lower extremities Cervical cancer (~1999) Chicken pox Chronic pruritus Chronic venous stasis CKD (chronic kidney disease) Coronary artery disease (~2007) Diabetes mellitus Eczema Endometriosis (~1999) Foot pain GERD (gastroesophageal reflux disease) (~1962) GI bleeding Heart failure with reduced ejection fraction Hemorrhoid Hyperlipidemia (~1983) Hypertension (~1959) Myocardial infarction (~09/2014) Osteoarthritis Pulmonary embolism (~2014) Shoulder pain Venous insufficiency Surgical History Anesthesia History of angioplasty History of bladder suspension procedure Status post hysterectomy Status post laparoscopic cholecystectomy Surgical procedure planned (~2014) Family & Social History Family History (Updated 07/10/22 @ 01:59 by JORGITO Leung) Mother Cervical cancer Father Prostate cancer Social History: other Watching tv Safety & Behavioral: Feels Safe in Current Yes Environment Been Physically Hurt or No Threatened By a Person Tobacco & Substance use: Smoking Status Never smoker alcohol intake never alcohol intake frequency holiday/special occasion Substance Use Type does not use Meds Home Medications and Allergies Home Medications Medication Instructions Recorded Confirmed Type Alcohol Prep Pads pad QID ##200 08/24/16 05/17/22 Rx acetaminophen 500 mg tablet 1,000 mg PO PRN PRN ##0 10/26/16 05/17/22 History Disabled Parking Permit ea ##1 12/27/16 05/17/22 Rx Lancets #360 ea 10/25/17 05/17/22 Rx aspirin 81 mg tablet,delayed 81 mg PO QDAY #90 tabs 10/25/17 05/17/22 Rx release Syringes: Ultra Fine Insulin #100 ea 02/22/20 05/17/22 Rx Syringe w/Needle hydroxyzine HCl 25 mg tablet 25 mg PO BID PRN itching #180 tabs 05/27/2105/17 Rx insulin glargine 100 unit/mL 15 unit (0.15 mL) SUBCUT HS #30 mL 05/27/21 05/17/22 Rx subcutaneous solution (Lantus U-100 Insulin) metformin 1,000 mg tablet 1,000 mg PO BIDCC #180 tabs 05/27/21 05/17/22 Rx primidone 50 mg tablet (Mysoline) See Rx Instructions PO BID #270 05/27/21 05/17/22 Rx tabs rivaroxaban 20 mg tablet (Xarelto) 20 mg PO QDAY #90 tabs 05/27/21 05/17/22 Rx rosuvastatin 20 mg tablet 20 mg PO HS #90 tabs 05/27/21 05/17/22 Rx triamcinolone acetonide 0.025 % 1 applic topical BID #15 grams 12/08/21 05/17/22 Rx topical cream fluticasone propionate 50 1 spray intranasal BID #16 grams 12/15/21 05/17/22 Rx mcg/actuation nasal spray,suspension (Flonase Allergy Relief) losartan 25 mg tablet 25 mg PO DAILY #90 tabs 12/15/21 05/17/22 Rx metoprolol succinate 50 mg See Rx Instructions PO SEE 12/15/21 05/17/22 Rx tablet,extended release 24 hr INSTRUCTIONS #270 tabs (Toprol XL) levocetirizine 5 mg tablet (Xyzal) 5 mg PO DAILY PRN allergy symptoms 01/21/22 05/17/22 Rx #30 tabs ewqhzirf-xrt-vyvay ac 400 1 tab PO DAILY #30 tabs 01/21/22 05/17/22 Rx mcg-calcium carb 500 mg-vit K1 20 mcg tablet (Women's 50 Plus Multivitamin) omeprazole 20 mg tablet,delayed 20 mg PO BID #60 tabs 01/21/22 05/17/22 Rx release spironolactone 25 mg tablet 25 mg PO DAILY #90 tabs 01/21/22 05/17/22 Rx digoxin 125 mcg (0.125 mg) tablet 125 mcg PO DAILY #10 tabs 02/16/22 05/17/22 Rx torsemide 10 mg tablet 10 mg PO BID #10 tabs 02/16/22 05/17/22 Rx benzonatate 100 mg capsule See Rx Instructions .Route 02/23/22 05/17/22 Rx .COMPLEX #30 caps diclofenac sodium 1 % topical gel 2 g topical QID PRN wrist pain 03/04/22 05/17/22 Rx #100 grams True Metrix Glucose: Test Strips #360 ea 04/28/22 05/17/22 Rx amlodipine 5 mg tablet 5 mg PO DAILY 05/12/22 05/17/22 History nystatin 100,000 unit/gram topical 1 applic topical BID #60 grams 05/14/22 05/17/22 Rx powder hydrocodone 5 mg-acetaminophen 325 1 tab PO BID PRN pain #10 tabs 05/19/22 Rx mg tablet Allergies Allergy/AdvReac Type Severity Reaction Status Date / Time albuterol Allergy Mild HIVES Verified 06/05/22 23:37 Sulfa (Sulfonamide Allergy Unknown Verified 06/05/22 23:37 Antibiotics) diazepam AdvReac Mild gives pt Verified 06/05/22 23:37 anxiety Review of Systems Review of Systems ROS: Yes All systems reviewed with the patient and are negative except as otherwise documented Exam Vital Signs (past 8 hours): - 07/09/22 22:48 07/09/22 23:00 07/09/22 23:30 Pulse Rate 99 H 100 H 94 H Respiratory Rate 25 H 16 15 Blood Pressure 07/10/22 00:00 Pulse Rate 102 H Respiratory Rate 21 Blood Pressure 148/88 H Oxygen Delivery Method Room Air Narrative Exam Narrative: Gen: Alert, oriented, morbidly obese 77 y.o. female, NAD HEENT: normocephalic, atraumatic, conjunctiva clear, sclera non-icteric, oral mucosa pink and moist Neck: supple, full ROM, no JVD, trachea is midline Resp: Lungs CTA, non-labored breathing CV: RRR, no murmur or rubs Abd: obese, soft, non-tender, normoactive BTs Skin: Rash in intertriginous area of pannus, breasts and arms. Lower legs with open sores, weeping, peeling and pinpoint areas of bleeding. Toenails are thickened and yellowed. Neuro: Alert and oriented X 4 w/no focal deficits. Speech clear and coherent. Extremities: moves all 4 extremities, is ambulatory, negative Patria?s sign Psyche: normal mood and affect. Objective Labs 07/09/22 17:25 07/09/22 17:25 Labs: Laboratory Results - last 24 hr 07/09/22 07/09/22 07/09/22 17:25 17:25 17:25 WBC 5.5 RBC 3.79 L Hgb 9.1 L Hct 29.2 L MCV 77.0 L MCH 24.2 L MCHC 31.4 RDW 20.8 H Plt Count 232 Neut % (Auto) 69.6 Lymph % (Auto) 15.7 L [place] % (Auto) 12.9 Eos % (Auto) 1.0 L Baso % (Auto) 0.8 Neut # (Auto) 3800 Lymph # (Auto) 900 L [place] # (Auto) 700 Eos # (Auto) 100 Baso # (Auto) 0 RBC Morphology See below Hypochromasia 1+ H Microcytosis 1+ H PT 15.5 H INR 1.3 APTT 31 Sodium 134 L Potassium 4.7 Chloride 105 Carbon Dioxide 20 L BUN 28 H Creatinine 0.96 Estimated GFR > 60 BUN/Creatinine Ratio 29.2 H Glucose 227 H Lactate Calcium 7.9 L Total Bilirubin 0.5 AST 28 ALT 20 Alkaline Phosphatase 242 H Total Creatine Kinase CK-MB (CK-2) CK-MB (CK-2) Rel Index Troponin I NT-Pro-B Natriuret Pep Total Protein 6.6 Albumin 3.2 L Globulin 3.4 Albumin/Globulin Ratio 0.9 L Lipase 675 H Procalcitonin 0.15 SARS-CoV-2 (PCR) 07/09/22 07/09/22 07/09/22 17:25 17:25 17:25 WBC RBC Hgb Hct MCV MCH MCHC RDW Plt Count Neut % (Auto) Lymph % (Auto) [place] % (Auto) Eos % (Auto) Baso % (Auto) Neut # (Auto) Lymph # (Auto) [place] # (Auto) Eos # (Auto) Baso # (Auto) RBC Morphology Hypochromasia Microcytosis PT INR APTT Sodium Potassium Chloride Carbon Dioxide BUN Creatinine Estimated GFR BUN/Creatinine Ratio Glucose Lactate 2.0 Calcium Total Bilirubin AST ALT Alkaline Phosphatase Total Creatine Kinase 51 CK-MB (CK-2) TNP CK-MB (CK-2) Rel Index TNP Troponin I 0.015 NT-Pro-B Natriuret Pep 19107 H 81465 H Total Protein Albumin Globulin Albumin/Globulin Ratio Lipase Procalcitonin SARS-CoV-2 (PCR) 07/09/22 23:58 WBC RBC Hgb Hct MCV MCH MCHC RDW Plt Count Neut % (Auto) Lymph % (Auto) [place] % (Auto) Eos % (Auto) Baso % (Auto) Neut # (Auto) Lymph # (Auto) [place] # (Auto) Eos # (Auto) Baso # (Auto) RBC Morphology Hypochromasia Microcytosis PT INR APTT Sodium Potassium Chloride Carbon Dioxide BUN Creatinine Estimated GFR BUN/Creatinine Ratio Glucose Lactate Calcium Total Bilirubin AST ALT Alkaline Phosphatase Total Creatine Kinase CK-MB (CK-2) CK-MB (CK-2) Rel Index Troponin I NT-Pro-B Natriuret Pep Total Protein Albumin Globulin Albumin/Globulin Ratio Lipase Procalcitonin SARS-CoV-2 (PCR) Negative Assessment & Plan Assessment & Plan narrative: Dorcas Clement is admitted to the inpatient service for a bilateral lower extremity cellulitis and a CHF exacerbation. Lower extremity cellulitis, acute and present on admission -Likely infected due to chronic scratching -Continue vanco dosed per pharmacy -wound cultures were collected in the ED and are pending as well as blood cult ures. HFrEF, exacerbation -[place] [address] -She was administered one dose of IV furosemide 40 mg. -She is ordered for a complete echo in the am. -Holding torsemide and spironolactone -continue home doses of losartan and metoprolol Atrial fibrillation, permanent -She is anticoagulated on rivaroxaban and this will be continued -Rythym and rate control with home doses of metoprolol and digoxin Essential hypertension, chronic -Continue home dose of amlodipine 5 mg po daily CAD, chronic -continue home dose of rosuvastatin, auto-subbed with atorvastatin Diabetes type 2, chronic -Glucose is 227, A1c is pending -Continue glargine 19 units at bedtime, medium dose correctional insulin -carb controlled diet Essential tremor, chronic -Continue home dose of primadone Chronic puritis -Continue hydroxazine prn for itching Other independent historians: none Discussion of results, plan of care with independent HCP/other: ED provider Reviewed outside records: Cardiology, outpatient, prior ED visits VTE Prophylaxis: Wells risk score3 [X] Patient is currently anticoagulated, pharmacological and mechanical VTE prophylaxis contraindicated in the setting of bilatera LE cellulitis and wounds and patient will continue her anticoagulation. Patient is admitted to the inpatient service due to the severity of disease, risks of further disease progression and this stay is expected to exceed 2 midnights. FEN: IV fluids: saline lock, diet: carb controlled diet, labs: CBC, C/BMP, liver enzymes, Mag, PT/INR Consultants None Social determinants of health: Patient lives alone, limited in-home services Dispo: unknown at this time Code status: DNR/DNI w/limited interventions as discussed with the patient who identifies russ Fermin as her surrogate and POA. Advanced care planning [ ] minutes. [X] I have utilized all available immediate resources to obtain, update, or review of the patient's current medications VTE Deep Vein Thrombosis/Pulmonary Embolism Present on Admission: No MIPS - Admit I confirm the patient?s Advance Care Plan is present, Code status is documented, Surrogate decision maker is in patient?s record: Yes COVID-19 COVID-19 status: Negative Time Spent With Patient Critical Care time: I spent a total of [] minutes of critical care time on this patient's care today; this time is exclusive of procedural time. Scores Herman' Criteria for PE Clinical signs and symptoms of DVT: No PE is #1 Dx or equally likely: No Heart rate > 100: Yes Immobilization at least 3 days or surg in previous 4 weeks: Yes History of PE or DVT: No Hemoptysis: No Malignancy w/Treatment within 6 months or palliative: No Herman' PE Score total: 3.0 Quality MIPS - DC The patient has a history of heart transplant or Left Ventricular Assist Device (LVAD). If yes, STOP here.: No The patient has current or prior documentation of left ventricular ejection fraction (LVEF) less than or equal to 40%, or moderate or severely depressed left ventricular systolic function.: Yes A. The patient was prescribed or already taking an Angiotensin-Converting Enzyme (TEENA) Inhibitor, or Angiotensin Receptor Emeka (ARB).: Yes B. The patient was prescribed or already taking a beta-emeka. [If Yes to Both A & B, STOP here]: Yes
[2022-07-10 02:33] LABS: Hemoglobin A1C% w Est Avg Glu 7.9 % (4.0-6.0)
[2022-07-10] MEDS: diphenhydrAMINE 25 MG TABLET PO ×3 (03:12→21:25)
[2022-07-10] MEDS: hydrOXYzine pamoate 25 MG CAPSULE PO ×3 (04:50→17:43)
--- NOTE | 2022-07-10 05:38 | PC.NURSE ---
Patient up from ED via stretcher. 4 person assist w/slider board. Patient tolerated move fine. Patient needing head to toe bed wash, which she tolerated. Patient w/ lots of skin issues, cleaned and dried all areas and placed Nystatin to many areas. Pictures taken of all wounds and redness to legs marked for monitoring.
[2022-07-10] MEDS: PANTOPRAZOLE DR 40 MG TABLET 20 MG PO ×2 (06:39→21:25)
[2022-07-10] MEDS: RIVAROXABAN 10 MG TABLET 20 MG PO (09:31)
[2022-07-10] MEDS: SPIRONOLACTONE 25 MG TABLET 50 MG PO (09:31)
[2022-07-10] MEDS: TORSEMIDE 10 MG TABLET 20 MG PO (09:31)
[2022-07-10] MEDS: ACETAMINOPHEN 325 MG TABLET 650 MG PO ×2 (09:32→17:43)
[2022-07-10] MEDS: PRIMIDONE 50 MG TABLET PO (09:32)
[2022-07-10] MEDS: LOSARTAN 50 MG TABLET PO (09:33)
[2022-07-10] MEDS: METOPROLOL IR 50 MG TABLET 150 MG PO (09:34)
[2022-07-10] MEDS: DIGOXIN 0.125 MG TABLET PO (09:35)
[2022-07-10] MEDS: AMLODIPINE 5 MG TABLET PO (09:35)
[2022-07-10] MEDS: INSULIN LISPRO 100 UNIT/ML 3ML VIAL SUBCUT ×2 (10:26→12:37)
--- NOTE | 2022-07-10 10:30 | DI.ECHO.S_ITS ---
Interpretation Summary The left ventricle is normal in size. Left ventricular systolic function is severely reduced. The ejection fraction is estimated to be 20-25%. There is severe global hypokinesis of the left ventricle. Diastolic parameters suggest a restrictive filling pattern consistent with probable significantly elevated filling pressures. The right ventricle is moderately dilated. Right ventricular systolic function is moderately reduced. The right ventricular systolic pressure is estimated to be at least 55 mmHg based on an estimated right atrial pressure of 15 mm Hg. The left atrium is mildly dilated. The right atrium is mildly dilated. There is mild to moderate mitral regurgitation. There is mild to moderate tricuspid regurgitation. There is no other significant valvular heart disease. The aortic root is normal size. Procedure: A two-dimensional transthoracic echocardiogram with color flow and Doppler was performed. The study quality was technically adequate. The patient was in sinus tachycardia with heart rates between 77-100 bpm during the exam. Left Ventricle: The left ventricle is normal in size. There is mild concentric left ventricular hypertrophy. There has been no significant change since the previous study. Left ventricular systolic function is severely reduced. The ejection fraction is estimated to be 20-25%. There is severe global hypokinesis of the left ventricle. Diastolic parameters suggest a restrictive filling pattern consistent with probable significantly elevated filling pressures. Right Ventricle: The right ventricle is moderately dilated. Right ventricular systolic function is moderately reduced. Atria: The left atrium is mildly dilated. The right atrium is mildly dilated. There is no Doppler evidence for an interatrial shunt. Mitral Valve: The mitral valve is normal. The mitral valve leaflets are mildly calcified. There is mild to moderate mitral regurgitation. Aortic Valve: The aortic valve is trileaflet. The aortic valve opens well. There is mild aortic valve sclerosis. There is trace aortic regurgitation. Tricuspid Valve: The tricuspid valve is normal. There is mild to moderate tricuspid regurgitation. The right ventricular systolic pressure is estimated to be at least 55 mmHg based on an estimated right atrial pressure of 15 mm Hg. Pulmonic Valve: The pulmonic valve leaflets are thin and pliable; valve motion is normal. There is a trace or physiologic amount of pulmonic regurgitation. There is no other significant valvular heart disease. Great Vessels: The aortic root is normal size. The ascending aorta is normal in size. The IVC is dilated (diameter is greater than 2.1 cm) and it collapses less than 50% with a sniff. This suggests a high right atrial pressure of 15 mm Hg. Pericardium/ Pleura There is no pericardial effusion. There is a moderate left-sided pleural effusion. MMode/2D Measurements & Calculations LVIDd: 4.9 cm LVOT diam: 1.9 cm LVIDs: 4.4 cm Ao root diam: 3.0 cm FS: 8.9 % asc Aorta Diam: 3.0 cm EPSS: 1.7 cm IVSd: 1.2 cm LVPWd: 1.2 cm LV toro. diameter/BSA (cm/m^2): 2.5 LV sys. diameter/BSA (cm/m^2): 2.3 LA A2 area: 22.1 cm2 RA long axis: 5.4 cm LA A4 area: 24.7 cm2 RA area: 19.9 cm2 LA length (vol): 6.3 cm RA vol: 62.0 ml LA vol: 73.8 ml RA : 31.5 ml/m2 LA vol index: 37.5 ml/m2 IVC diam: 2.5 cm RVD1 (basal): 5.0 cm TAPSE: 0.97 cm Doppler Measurements & Calculations Ao V2 max: 102.0 cm/sec LVOT Max Chip: 68.6 cm/sec Ao V2 mean: 75.1 cm/sec LV V1 max P.9 mmHg Ao max P.2 mmHg LV V1 VTI: 12.2 cm Ao mean P.5 mmHg DAYORN(I,D): 2.3 cm2 Ao V2 VTI: 15.4 cm DAYRON(V,D): 2.0 cm2 sev ratio: 0.79 DAYRON indexed to BSA (cm^2/m^2): 1.2 MV E max chip: 91.0 cm/sec TR max chip: 317.8 cm/sec MV A max chip: 33.9 cm/sec TR max P.4 mmHg MV E/A: 2.7 PA V2 max: 68.6 cm/sec Med Peak E' Chip: 4.8 cm/sec PA V2 mean: 52.8 cm/sec E/E' med: 19.1 PA mean P.2 mmHg Lat Peak E' Chip: 9.2 cm/sec E/E' lat: 9.9 E/e' average: 14.5 MV dec time: 0.19 sec MVA(VTI): 1.6 cm2 MR ERO: 0.10 cm2 MV V2 mean: 71.6 cm/sec MR PISA: 1.4 cm2 MV mean P.3 mmHg MR flow rate: 51.1 cm3/sec MV V2 VTI: 22.1 cm MR PISA radius: 0.47 cm SV(LVOT): 35.5 ml Reading Physician:01:28 PM
[2022-07-10] MEDS: INFLUENZA HD VACCINE 0.7 ML SYRINGE IM (10:35)
[2022-07-10] MEDS: levoFLOXacin 750 MG/150 ML PIGGYBACK 100 MG IV (11:30)
[2022-07-10] MEDS: OXYCODONE IR 5 MG TABLET PO ×2 (11:30→17:43)
[2022-07-10] MEDS: VANCOMYCIN 1,000 MG/200 ML PIGGYBACK 200 MG IV ×2 (12:38→23:52)
--- NOTE | 2022-07-10 14:34 | CM.DANOTE ---
DCP: Assessment: Patient is a 77 yo female who arrived via EMS with c/o increased pain, swelling and drainage from her legs, she was admitted with lower extremity cellulitis, HFrEF exacerbation and hx of Afib, Htn, Cad, DMII, esential tremor, chronic purtitis. PCP: Idania Bruno Insurance: Medicare; This CM me with pt in her room. Introduced self and role. Pt states that she lives alone in an apartment in [place], does not drive and uses a 4ww. This CM spoke with pt about potential SNF's via tablet. Pt states that her Héctor Fermin is her main contact and that she would like this CM to speak with her about the Choices that Marilia will think are appropriate. This DCP spoke with Marilia via phone per pt choice with regard to SNF agency choices. Marilia chose [facility], and [facility]. This CM sent referrals. PASSR completed. Pt notified and is in agreement. P: Transfer to a SNF when medically stable. Awaiting referrals to be reviewed will have CM f/u tomorrow. Sheridan Mcginnis RN Case Manager Discharge Planning/Care Management CM Discharge Assessment Start: 07/10/22 14:28 Freq: Status: Active Protocol: Document 07/10/22 14:29 JABARI (Rec: 07/10/22 14:33 JABARI [id number]) Discharge Planning Assessment Assigned Senior Clinical Data Coordinator Sheridan Mcginnis RN Case Manager Advance Directives? Yes: Yes/POLST Advance Directives on File Yes History Provided By Patient,Family Member,Medical Record Has Patient been admitted in last 30 No days? Prior Living Arrangements Apartment/Condo Household Members none Type of transporation used prior to Relies on Others admit Independent with ADL's No Is patient alert and oriented? Yes Needs Assistance With Bathing,Meal Prep,Managing Medications,Home Chores / Shopping Caregiver for Another No DME Already Rented / Owned FWW / Walker Patient/Family Preference Correction Facility Barriers to Discharge No Discharge Plan Correction Facility Transportation Arrangement to be determined If patient plan is SNF: Has PASSR been Yes completed? Medicare Choice List Provided Yes Medicare choice list reviewed on patient,family electronic tablet with Whiteboard Updated in Patient Room with Yes name and ext. # of Senior Clinical Data Coordinator Review Status In Process Next Review Type Continued Stay Review
[2022-07-10] MEDS: METOPROLOL IR 50 MG TABLET PO (17:42)
[2022-07-10] MEDS: INSULIN GLARGINE 100 UNIT/ML 3ML PEN 30 UNIT SUBCUT (21:23)
[2022-07-10] MEDS: PRIMIDONE 50 MG TABLET 100 MG PO (21:25)
[2022-07-10] MEDS: ATORVASTATIN 20 MG TABLET 40 MG PO (21:26)
[2022-07-11 00:22] VITALS: BP 151/54; PULSE 59; RESP 16; TEMP 36.2; O2SAT 99
[2022-07-11] MEDS: diphenhydrAMINE 25 MG TABLET PO ×2 (03:54→21:39)
[2022-07-11] MEDS: hydrOXYzine pamoate 25 MG CAPSULE PO ×2 (05:10→20:44)
[2022-07-11] MEDS: OXYCODONE IR 5 MG TABLET PO ×3 (05:10→21:39)
[2022-07-11] MEDS: PANTOPRAZOLE DR 40 MG TABLET 20 MG PO ×2 (06:10→20:42)
[2022-07-11 07:45] VITALS: BP 207/167; PULSE 75; RESP 18; TEMP 36.2; O2SAT 100
[2022-07-11] MEDS: RIVAROXABAN 10 MG TABLET 20 MG PO (08:52)
[2022-07-11] MEDS: PRIMIDONE 50 MG TABLET PO (08:52)
[2022-07-11] MEDS: METOPROLOL IR 50 MG TABLET 150 MG PO (08:52)
[2022-07-11 08:53] VITALS: BP 189/118; PULSE 102
[2022-07-11] MEDS: LOSARTAN 50 MG TABLET PO (08:53)
[2022-07-11] MEDS: SPIRONOLACTONE 25 MG TABLET 50 MG PO ×2 (08:53→12:38)
[2022-07-11] MEDS: TORSEMIDE 10 MG TABLET 20 MG PO (08:53)
[2022-07-11] MEDS: INSULIN LISPRO 100 UNIT/ML 3ML VIAL SUBCUT ×2 (08:54→12:18)
[2022-07-11 09:02] VITALS: BP 189/118; PULSE 102
[2022-07-11] MEDS: AMLODIPINE 5 MG TABLET PO ×2 (09:02→12:38)
[2022-07-11] MEDS: DIGOXIN 0.125 MG TABLET PO (09:02)
--- NOTE | 2022-07-11 11:38 | P.PN_ITS ---
Subjective Subjective Interval history: Dorcas Clement is a 77 y.o. female with diabetes type 2 currently on insulin, hypertension, CAD and a past history of LAD with stent, heart failure with a reduced ejection fraction, permanent atrial fibrillation anticoagulated on rivaroxaban, chronic puritis who presented to the ED with bilateral lower extremity swelling, weeping and pain. Patient states that she itches all the time, this time she woke up scratching her legs. She denies fever or chills, she has had sinus headaches, denies n/v, denies urinary incontinence, but has urgency, denies diarrhea or constipation. She has an essential tremor for which she takes primadone.Due to suspected sepsis, ED ordered a chest xray, which did not report any acute abnormalities. Exam Vital Signs (past 8 hours): - 07/11/22 07:45 07/11/22 08:53 07/11/22 09:02 Temperature 97.2 F L Pulse Rate 75 102 H 102 H Respiratory Rate 18 Blood Pressure 207/167 H 189/118 H 189/118 H Pulse Oximetry 100 Oxygen Flow Rate 0 Oxygen Delivery Method Room Air Oxygen Flow Rate 0 Narrative Exam Narrative: Gen: Alert, oriented, morbidly obese 77 y.o. ? female, NAD HEENT: normocephalic, atraumatic, conjunctiva clear, sclera non-icteric, oral mucosa pink and moist Neck: supple, full ROM, no JVD, trachea is midline Resp: Lungs CTA, non-labored breathing CV: RRR, no murmur or rubs Abd: obese, soft, non-tender, normoactive BTs Skin: Rash in intertriginous area of pannus, breasts and arms. Lower legs with open sores, weeping, peeling and pinpoint areas of bleeding. Toenails are thickened and yellowed. Neuro: Alert and oriented X 4 w/no focal deficits. Speech clear and coherent. Extremities: moves all 4 extremities, is ambulatory, negative Patria?s sign Psyche: normal mood and affect Objective Labs 07/09/22 17:25 07/09/22 17:25 [facility] Medical History Abnormal Pap smear of cervix (~1999) Anemia Ankle pain Anticoagulated B12 deficiency Cardiac arrhythmia (~1979) Cellulitis of both lower extremities Cervical cancer (~1999) Chicken pox Chronic pruritus Chronic venous stasis CKD (chronic kidney disease) Coronary artery disease (~2007) Diabetes mellitus Eczema Endometriosis (~1999) Foot pain GERD (gastroesophageal reflux disease) (~1962) GI bleeding Heart failure with reduced ejection fraction Hemorrhoid Hyperlipidemia (~1983) Hypertension (~1959) Myocardial infarction (~09/2014) Osteoarthritis Pulmonary embolism (~2014) Shoulder pain Venous insufficiency Surgical History Anesthesia History of angioplasty History of bladder suspension procedure Status post hysterectomy Status post laparoscopic cholecystectomy Surgical procedure planned (~2014) Family History Mother Cervical cancer Father Prostate cancer Social History household members: none pets and animals: No education level: college occupational status: other tatianna/judaism: Hinduism travel history: other leisure activities: other other: Watching tv seatbelt use: always water heater temp set < 120 deg: Yes working smoke detector in home: Yes fire extinguisher in home: No carbon monox detector in home: Yes firearms in home: No Smoking Status: Never smoker alcohol intake: never substance use type: does not use during the past year weight has: remained stable well-balanced diet: about half the time daily servings fruits/ve-4 caffeine: No eating out: 1-3 times/week Type(s) of exercise: walking and other duration: 15-30 minutes/day Assessment & Plan Assessment & Plan narrative: Lower extremity cellulitis, acute and present on admission -Likely infected due to chronic scratching -Continue vanco dosed per pharmacy -wound cultures were collected in the ED and are pending as well as blood cultures. HFrEF, exacerbation -[place] [id number], follow tomorrow -She was administered one dose of IV furosemide 40 mg. -She is ordered for a complete echo in the am. -Held torsemide and spironolactone initially, restart -continue home doses of losartan and metoprolol Atrial fibrillation, permanent -She is anticoagulated on rivaroxaban and this will be continued -Rythym and rate control with home doses of metoprolol and digoxin Essential hypertension, chronic, not well controlled today -Home dose of amlodipine 5 mg po daily, will increase to 10 mg daily and continue metoprolol at patient's current dose, restarting torsemide and spiron olactone CAD, chronic -continue home dose of rosuvastatin, auto-subbed with atorvastatin Diabetes type 2, chronic -Glucose is 227, A1c is 7.9 -Continue glargine 19 units at bedtime, medium dose correctional insulin -carb controlled diet Essential tremor, chronic -Continue home dose of primadone Chronic puritis -Continue hydroxazine prn for itching Follow labs and clinically. VTE Prophylaxis: Wells risk score3? [X] Patient is currently anticoagulated, pharmacological and mechanical VTE prophylaxis contraindicated in the setting of bilatera LE cellulitis and wounds and patient will continue her anticoagulation. Social determinants of health: Patient lives alone, limited in-home services Dispo: unknown at this time Code status: DNR/DNI w/limited interventions as discussed by hospitalist nurse practitioner with the patient who identifies russ Fermin as her surrogate and POA. Time Spent With Patient Critical Care time: I spent a total of [] minutes of critical care time on this patient's care t robert; this time is exclusive of procedural time.
--- NOTE | 2022-07-11 11:40 | CM.DPC ---
Addendum entered by BIPIN Lagunas 07/11/22 14:25: Per Lauren at [facility], they are considering pt but would like to see if she is able to participate in PT and PT eval still pending as short staffed on the weekends. SHIRLEY spoke to Yany at [facility] and refaxed referral to her w/e fax number for review. BF Original Note: DCP SNF planning Per MD, pt remains on IV-Abx and her infection/cellulitis does not appear to be spreading but still fairly painful and uncomfortable. SW met bedside with pt and explained role and pt very chatty and friendly and confirms she stood yesterday but her feet felt quite swollen and uncomfortable and confirms that her granddtr Marilia is DPOA and she relies on her for decisions and aware that she likely will need SNF before return home. SHIRLEY contacted Lauren at [facility] and she is currently reviewing and requested info on pt's wound care needs, height and weight and will continue to review. SW contacted [facility] and provided updated information on pt and they will continue reviewing. SW left [facility] for [facility] on their review. PASRR previously done in anticipation of SNF. Pt will meet her Medicare qualifying stay by tomorrow Mon but unsure if pt will be medically stable to d/c yet tomorrow. Plan: SW to follow closely for [facility], [facility], [facility] review to determine if any can accept at d/c before safe return home with local family support. BIPIN Lagunas
[2022-07-11 12:28] LABS: Vancomycin Trough 20.8 ug/mL (10-20)
[2022-07-11] MEDS: TORSEMIDE 10 MG TABLET PO ×2 (12:38→17:17)
[2022-07-11] MEDS: ACETAMINOPHEN 325 MG TABLET 650 MG PO ×2 (14:31→20:43)
[2022-07-11 16:51] VITALS: BP 113/79; PULSE 63; RESP 18; TEMP 36.3; O2SAT 98
[2022-07-11] MEDS: METOPROLOL IR 50 MG TABLET PO (17:17)
[2022-07-11] MEDS: ATORVASTATIN 20 MG TABLET 40 MG PO (20:41)
[2022-07-11] MEDS: PRIMIDONE 50 MG TABLET 100 MG PO (20:43)
[2022-07-12] VITALS (8 sets, daily range): BP systolic 104–155; BP diastolic 37–87; PULSE 46–62; RESP 12–18; TEMP 36–36.8; O2SAT 93–100
[2022-07-12] MEDS: hydrOXYzine pamoate 25 MG CAPSULE PO ×3 (02:21→21:51)
[2022-07-12] MEDS: OXYCODONE IR 5 MG TABLET PO ×2 (02:21→05:46)
[2022-07-12] MEDS: NYSTATIN POWDER 15GM 1 APPLIC TOP ×2 (02:22→21:50)
[2022-07-12] MEDS: PANTOPRAZOLE DR 40 MG TABLET 20 MG PO ×2 (05:45→21:51)
[2022-07-12] MEDS: diphenhydrAMINE 25 MG TABLET PO (05:46)
[2022-07-12 05:53] LABS: Add Manual Diff / Slide Review NO; Basophils Absolute Auto 100 /uL (0-100); Basophils Percent Auto 1.3 % (0-2); Eosinophils Absolute Auto 200 /uL (0-450); Eosinophils Percent Auto 2.9 % (2-4); Hematocrit 30.2 % (36-46); Hemoglobin 9.2 g/dL (12.0-16.0); Lymphocytes Absolute Auto 1100 /uL (1100-4500); Lymphocytes Percent Auto 19.5 % (25-40); Mean Corpuscular HGB Conc 30.5 % (30-36); Mean Corpuscular Hemoglobin 23.6 PG (26-34); Mean Corpuscular Volume 77.4 fL (80-100); Monocytes Absolute Auto 1000 /uL (0-900); Monocytes Percent Auto 18.2 % (3-14); Neutrophils Absolute Auto 3100 /uL (1500-7000); Neutrophils Percent Auto 58.1 % (50-75); Platelet Count 254 X10^3/uL (150-400); Red Cell Distribution Width 20.4 % (11.6-14.8); White Blood Cell Count 5.4 X10^3/uL (4.5-11.0)
[2022-07-12 06:11] LABS: Microcytosis 1+
[2022-07-12 06:12] LABS: Alanine Aminotransferase 23 IU/L (<35); Albumin 2.9 g/dL (3.5-5.0); Albumin Globulin Ratio 0.9 (1.0-2.8); Alkaline Phosphatase 261 U/L (38-126); Anisocytosis 2+; Aspartate Aminotransferase 31 IU/L (14-36); Bilirubin Total 0.7 mg/dL (0.2-1.3); Blood Urea Nitrogen 46 mg/dL (7-17); Calcium 7.6 mg/dL (8.4-10.2); Carbon Dioxide 19 mmol/L (22-32); Chloride 104 mmol/L (98-107); Estimated Glomerular Filt Rate 32 mL/min (>60); Globulin 3.4 g/dL (1.7-4.1); Glucose 85 mg/dL (80-110); HEMOLYSIS < 15 (0-50); Hypochromasia 1+; Potassium 4.6 mmol/L (3.4-5.1); Sodium 132 mmol/L (137-145); Total Protein 6.3 g/dL (6.3-8.2)
[2022-07-12 06:19] LABS: NT-proBNP (BNP-Adult 18+) 18200 pg/mL (<450)
[2022-07-12] MEDS: PRIMIDONE 50 MG TABLET PO (09:23)
[2022-07-12] MEDS: RIVAROXABAN 10 MG TABLET 20 MG PO (09:23)
[2022-07-12] MEDS: AMLODIPINE 5 MG TABLET 10 MG PO (09:23)
--- NOTE | 2022-07-12 10:26 | PC.NURSE ---
Addendum entered by Saundra Mccracken R.N. 07/12/22 15:27: Patient talks to herself quite a bit, She is comfortable at this time. Patient has not had a lot of sleep. New pure wick placed on patient, she has put out alot of urine thus far. Resting comfortably. Addendum entered by Saundra Mccracken R.N. 07/12/22 12:01: Patient given vistaril for complaints of itching. Hopeful that this will help her sleep as patient did not sleep all night. Addendum entered by Saundra Mccracken R.N. 07/12/22 11:31: Patient repositioned to her r.side. Cleaned up in her folds and under breasts, powder applied to area's and she seems to be feeling better. Patient has stopped calling out and denies itching at this time. Original Note: Patient clears her throat a lot from post nasal drip. She tolerates a diabetic diet. She is complaining of itching everytime someone walks by her room. She has yeast under her folds and some macerated area's. She denies pain, we will be repositioning her soon. Patients legs are with 3+ edema, red and wheepy. She has ppx2 and cms wnl.
[2022-07-12] MEDS: LOSARTAN 50 MG TABLET PO (10:53)
[2022-07-12] MEDS: METOPROLOL IR 50 MG TABLET 150 MG PO (10:53)
[2022-07-12] MEDS: DIGOXIN 0.125 MG TABLET PO (10:54)
[2022-07-12] MEDS: levoFLOXacin 750 MG/150 ML PIGGYBACK 100 MG IV (11:16)
--- NOTE | 2022-07-12 12:24 | PM.PN.1 ---
Subjective Subjective Interval history: Dorcas Clement is a 77 y.o. female with diabetes type 2 currently on insulin, hypertension, CAD and a past history of LAD with stent, heart failure with a reduced ejection fraction, permanent atrial fibrillation anticoagulated on rivaroxaban, chronic puritis who presented to the ED with bilateral lower extremity swelling, weeping and pain. Patient states that she itches all the time. She denies fever or chills, she has had sinus headaches, denies n/v, denies urinary incontinence, but has urgency, denies diarrhea or constipation. She has an essential tremor for which she takes primadone.Due to suspected sepsis, ED ordered a chest xray, which did not report any acute abnormalities. Patient main complaint today is difficulty chewing due to problems with sore gums. Will order ECG tube food that is carbohydrate restricted. Also complaining of cramping of her calves and feet. Due to the multiple comorbidities difficult to provide muscle relaxant or low-dose diazepam to help with this. Will measure magnesium level and replace if necessary. Also order physical therapy to provide bed exercises for the lower extremities as prevention for cramping. Exam Vital Signs (past 8 hours): - 07/12/22 06:00 07/12/22 09:14 Temperature 97.7 F 96.8 F L Pulse Rate 50 L 46 L Respiratory Rate 18 18 Blood Pressure 125/44 L 155/87 H Pulse Oximetry 100 93 Oxygen Flow Rate 0 0 Oxygen Delivery Method Room Air Oxygen Flow Rate 0 Narrative Exam Narrative: Gen: Alert, oriented, morbidly obese 77 y.o. ? female, NAD HEENT: normocephalic, atraumatic, conjunctiva clear, sclera non-icteric, oral mucosa pink and moist Neck: supple, full ROM, no JVD, trachea is midline Resp: Lungs CTA, non-labored breathing CV: RRR, no murmur or rubs Abd: obese, soft, non-tender, normoactive BTs Skin: Rash in intertriginous area of pannus, breasts and arms. Lower legs with open sores, weeping, peeling and pinpoint areas of bleeding. Toenails are thickened and yellowed. Neuro: Alert and oriented X 4 w/no focal deficits. Speech clear and coherent. Extremities: moves all 4 extremities, is ambulatory, negative Patria?s sign Psyche: normal mood and affect Objective Labs 07/12/22 05:32 07/12/22 05:32 Labs: Laboratory Results - last 24 hr 07/11/22 07/12/22 07/12/22 11:30 05:32 05:32 WBC 5.4 RBC 3.90 L Hgb 9.2 L Hct 30.2 L MCV 77.4 L MCH 23.6 L MCHC 30.5 RDW 20.4 H Plt Count 254 Neut % (Auto) 58.1 Lymph % (Auto) 19.5 L [place] % (Auto) 18.2 H Eos % (Auto) 2.9 Baso % (Auto) 1.3 Neut # (Auto) 3100 Lymph # (Auto) 1100 [place] # (Auto) 1000 H Eos # (Auto) 200 Baso # (Auto) 100 RBC Morphology See below Hypochromasia 1+ H Anisocytosis 2+ H Microcytosis 1+ H Sodium Potassium Chloride Carbon Dioxide BUN Creatinine Estimated GFR BUN/Creatinine Ratio Glucose Calcium Total Bilirubin AST ALT Alkaline Phosphatase NT-Pro-B Natriuret Pep 61735 H Total Protein Albumin Globulin Albumin/Globulin Ratio Vancomycin Trough 20.8 H* 07/12/22 05:32 WBC RBC Hgb Hct MCV MCH MCHC RDW Plt Count Neut % (Auto) Lymph % (Auto) [place] % (Auto) Eos % (Auto) Baso % (Auto) Neut # (Auto) Lymph # (Auto) [place] # (Auto) Eos # (Auto) Baso # (Auto) RBC Morphology Hypochromasia Anisocytosis Microcytosis Sodium 132 L Potassium 4.6 Chloride 104 Carbon Dioxide 19 L BUN 46 H Creatinine 1.64 H Estimated GFR 32 L BUN/Creatinine Ratio 28.0 H Glucose 85 D Calcium 7.6 L Total Bilirubin 0.7 AST 31 ALT 23 Alkaline Phosphatase 261 H NT-Pro-B Natriuret Pep Total Protein 6.3 Albumin 2.9 L Globulin 3.4 Albumin/Globulin Ratio 0.9 L Vancomycin Trough [facility] Medical History Abnormal Pap smear of cervix (~1999) Anemia Ankle pain Anticoagulated B12 deficiency Cardiac arrhythmia (~1979) Cellulitis of both lower extremities Cervical cancer (~1999) Chicken pox Chronic pruritus Chronic venous stasis CKD (chronic kidney disease) Coronary artery disease (~2007) Diabetes mellitus Eczema Endometriosis (~1999) Foot pain GERD (gastroesophageal reflux disease) (~1962) GI bleeding Heart failure with reduced ejection fraction Hemorrhoid Hyperlipidemia (~1983) Hypertension (~1959) Myocardial infarction (~09/2014) Osteoarthritis Pulmonary embolism (~2014) Shoulder pain Venous insufficiency Surgical History Anesthesia History of angioplasty History of bladder suspension procedure Status post hysterectomy Status post laparoscopic cholecystectomy Surgical procedure planned (~2014) Family History Mother Cervical cancer Father Prostate cancer Social History household members: none pets and animals: No education level: college occupational status: other tatianna/restorationist: Rastafari travel history: other leisure activities: other other: Watching tv seatbelt use: always water heater temp set < 120 deg: Yes working smoke detector in home: Yes fire extinguisher in home: No carbon monox detector in home: Yes firearms in home: No Smoking Status: Never smoker alcohol intake: never substance use type: does not use during the past year weight has: remained stable well-balanced diet: about half the time daily servings fruits/ve-4 caffeine: No eating out: 1-3 times/week Type(s) of exercise: walking and other duration: 15-30 minutes/day Assessment & Plan Assessment & Plan narrative: Lower extremity cellulitis, acute and present on admission -Likely infected due to chronic scratching -Continue vanco dosed per pharmacy -wound cultures were collected in the ED and are pending as well as blood cultures. Blood cultures negative thus far. Wound cultures positive for Gram-negative bacilli. HFrEF, exacerbation -[place] [address] yesterday and 18,200 today, due to renal challenges difficult to diurese, follow tomorrow -She was administered one dose of IV furosemide 40 mg. -She is ordered for a complete echo in the am. -Held torsemide and spironolactone initially, continue to hold diuretics -continue doses of amlodipine and metoprolol Atrial fibrillation, permanent -She is anticoagulated on rivaroxaban and this will be continued -Rythym and rate control with home doses of metoprolol and digoxin Essential hypertension, chronic, not well controlled today -Home dose of amlodipine 5 mg po daily, will increase to 10 mg daily and continue metoprolol at patient's current dose, restarting torsemide and spironolactone CAD, chronic -continue home dose of rosuvastatin, auto-subbed with atorvastatin Diabetes type 2, chronic -Glucose is 227, A1c is 7.9 -Continue glargine 19 units at bedtime, medium dose correctional insulin -carb controlled diet Essential tremor, chronic -Continue home dose of primadone Chronic puritis -Continue hydroxazine prn for itching Follow labs and clinically. VTE Prophylaxis: Wells risk score3? [X] Patient is currently anticoagulated, pharmacological and mechanical VTE prophylaxis contraindicated in the setting of bilatera LE cellulitis and wounds and patient will continue her anticoagulation. Social determinants of health: Patient lives alone, limited in-home services Dispo: unknown at this time Code status: DNR/DNI w/limited interventions as discussed by hospitalist nurse practitioner with the patient who identifies russ Fermin as her surrogate and POA. Time Spent With Patient Critical Care time: I spent a total of [] minutes of critical care time on this patient's care today; this time is exclusive of procedural time.
[2022-07-12 14:16] LABS: Magnesium 1.3 mg/dL (1.6-2.3)
--- NOTE | 2022-07-12 14:57 | PT.IIE ---
Current Diagnoses Other specified disorders of veins (07/09/22) Cellulitis of right lower limb (07/09/22) Cellulitis of left lower limb (07/09/22) FPC (current) use of anticoagulants (07/09/22) Surgical History (Last Reviewed 07/10/22 @ 05:53 by Benedict Amaya DO) Anesthesia History of angioplasty History of bladder suspension procedure Status post hysterectomy Status post laparoscopic cholecystectomy Surgical procedure planned (~2014) Medical History (Last Reviewed 07/10/22 @ 05:53 by Benedict Amaya DO) Abnormal Pap smear of cervix (~1999) Anemia Ankle pain Anticoagulated B12 deficiency Cardiac arrhythmia (~1979) Cellulitis of both lower extremities Cervical cancer (~1999) Chicken pox Chronic pruritus Chronic venous stasis CKD (chronic kidney disease) Coronary artery disease (~2007) Diabetes mellitus Eczema Endometriosis (~1999) Foot pain GERD (gastroesophageal reflux disease) (~1962) GI bleeding Heart failure with reduced ejection fraction Hemorrhoid Hyperlipidemia (~1983) Hypertension (~1959) Myocardial infarction (~09/2014) Osteoarthritis Pulmonary embolism (~2014) Shoulder pain Venous insufficiency Physical Therapy Inpatient Evaluation/Re-Eval M1 PT/OT-IP Prior Functional Status Start: 07/12/22 13:59 Freq: NEEDED Status: Active Protocol: Document 07/12/22 14:31 AMB (Rec: 07/12/22 14:57 AMB [id number]) Medical Review Prior Functional Status Mobility and Gait Pt states she has a walker and a w/c in her apartment. Family helps out. She does have a history of multiple falls. States her vision is poor and she is clutzy Social History Household Members none Living Arrangements Apartment/Condo Number of Floors (Floors) One Floor Number of Stairs To Enter/Railing? 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 M2 PT-IP Current Condition Start: 07/12/22 13:59 Freq: NEEDED Status: Active Protocol: Document 07/12/22 14:31 AMB (Rec: 07/12/22 14:57 AMB [id number]) Physical Therapy Current Condition Current Condition Evaluation Date 07/12/22 Treatment Diagnosis Leg wounds,weakness,hx falls Onset Date 07/09/22 M3 PT-IP Subjective Start: 07/12/22 13:59 Freq: NEEDED Status: Active Protocol: Document 07/12/22 14:31 AMB (Rec: 07/12/22 14:57 AMB [id number]) Subjective Physical Therapy Visit Type Type Initial Evaluation Visit Start Time 14:00 Visit Stop Time 14:30 Total Visit Minutes 30 Physical Therapy Visit Comments Patient Comments Dorcas states she is very itchy, has heel pain and neck pain. Therapy Pain Assessment Pain When Pain Assessed At Rest M4 PT-IP Mobility and Gait Start: 07/12/22 13:59 Freq: NEEDED Status: Active Protocol: Document 07/12/22 14:31 AMB (Rec: 07/12/22 14:57 AMB [id number]) PT-Bed Mobility Assessment Rolling Type of Rolling Log Rolling Level of Assist Maximal Assistance PT-Transfer Assessment Comments Mobility Comments pt unable/declined Gait Assessment Comments Gait Comments pt declined/unable M5 PT-IP Objective Assessments Start: 07/12/22 13:59 Freq: NEEDED Status: Active Protocol: Document 07/12/22 14:31 AMB (Rec: 07/12/22 14:57 AMB [id number]) Strength Lower Extremity Strength Assessment Bilaterally Impaired Hip 2 Knee 3 Ankle 2 Comments Strength Comments pt with limited range through gravity at hips and knee. Did appear to have 3/5 strength at quads. M6 PT-IP Treatment Start: 07/12/22 13:59 Freq: NEEDED Status: Active Protocol: Document 07/12/22 14:31 AMB (Rec: 07/12/22 14:57 AMB [id number]) Physical Therapy Treatment Exercises Exercises Ankle Pumps,Gluteal Sets M7 PT-IP Assessment and Plan Start: 07/12/22 13:59 Freq: NEEDED Status: Active Protocol: Document 07/12/22 14:31 AMB (Rec: 07/12/22 14:57 AMB [id number]) PT Summary Assessment and Plan Potential Rehabilitation Potential Fair Status of Condition at Evaluation Evolving Summary Impairments Pain,ROM,Strength,Balance,Bed Mobility,Transfers,Gait, Activity Tolerance Assessment Summary Dorcas states that at baseline she was able to get out of bed independently and use a walker for her mobility. However during PT assessment she was unable to perform bed mobility due to pain weakness, despite PT assistance. Pt states she is thinking she could d/c to granddaughter's home vs SNF, but as pt was unable to perform bed mobility due to pain would certainly recommend SNF at this time as pt will need heavy physical assist vs lift for bed mobility, transfers and gait. Goals Bed Mobility Goal Minimal Assistance Transfer Goal Minimal Assistance Gait Goal Minimal Assistance Gait Distance 50' Days to Meet Goals 7 Frequency of Treatment Frequency Of Treatment Once a Day Treatment Plan Physical Therapy Treatment Plan Bed Mobility Training,Transfer Training,Gait Training, Therapeutic Exercise, Neuromuscular Re-ed Other Recommendations and Next Treatment Bed mobility, bed exercises Focus Recommendations To Nursing Amount of Assist Needed 2 Person Assist,Mechanical Lift Discharge Recommendations PT Discharge Recommendations SNF Rehab Transportation Needs at Discharge Wheelchair/Cabulance
[2022-07-12] MEDS: MAGNESIUM CHLORIDE 64 MG TABLET 128 MG PO ×2 (15:10→21:58)
--- NOTE | 2022-07-12 15:30 | CM.DPC ---
DCP/continued: Reviewed EMR. Anticipate d/c within the next 24-48hrs. Reviewed CM team notes. Placed call to first SNF choice ([facility]) spoke with Tara. Per Tara she will review for admit tomorrow 07-13-22. Tara aware that this is patient/family first choice. Tara reports that they do not accept [facility] therefore, only first 20dys covered. Tara unsure if she can accept do to high acuity. Notified CM donovan/Sheridan that Tara will notify CM team either today or tomorrow if she can or cannot accept. Tara also inquiring about d/c plan after SNF? Will notify family and request that they call Tara at [facility] if patient agreeable. P: Pending. MAGALI
[2022-07-12] MEDS: INSULIN LISPRO 100 UNIT/ML 3ML VIAL SUBCUT ×2 (16:53→21:51)
[2022-07-12] MEDS: ATORVASTATIN 20 MG TABLET 40 MG PO (21:49)
[2022-07-12] MEDS: INSULIN GLARGINE 100 UNIT/ML 3ML PEN 30 UNIT SUBCUT (21:50)
[2022-07-12] MEDS: PRIMIDONE 50 MG TABLET 100 MG PO (21:51)
[2022-07-13] VITALS (7 sets, daily range): BP systolic 99–153; BP diastolic 53–87; PULSE 46–69; RESP 14–20; TEMP 35.7–36.7; O2SAT 97–100
[2022-07-13 06:38] LABS: Hematocrit 29.1 % (36-46); Mean Corpuscular HGB Conc 30.9 % (30-36); Mean Corpuscular Hemoglobin 23.7 PG (26-34); Mean Corpuscular Volume 76.8 fL (80-100); Platelet Count 236 X10^3/uL (150-400); Red Blood Cell Count 3.78 X10^6/uL (4.0-5.2); Red Cell Distribution Width 20.3 % (11.6-14.8); White Blood Cell Count 4.7 X10^3/uL (4.5-11.0)
[2022-07-13 06:40] LABS: Add Manual Diff / Slide Review YES
[2022-07-13 06:42] LABS: Alanine Aminotransferase 23 IU/L (<35); Albumin 2.8 g/dL (3.5-5.0); Albumin Globulin Ratio 0.9 (1.0-2.8); Alkaline Phosphatase 285 U/L (38-126); Aspartate Aminotransferase 32 IU/L (14-36); BUN Creatinine Ratio 30.4 (6-22); Bilirubin Total 0.5 mg/dL (0.2-1.3); Blood Urea Nitrogen 52 mg/dL (7-17); Calcium 7.6 mg/dL (8.4-10.2); Carbon Dioxide 19 mmol/L (22-32); Chloride 104 mmol/L (98-107); Estimated Glomerular Filt Rate 30 mL/min (>60); Globulin 3.2 g/dL (1.7-4.1); Glucose 100 mg/dL (80-110); HEMOLYSIS < 15 (0-50); Potassium 4.7 mmol/L (3.4-5.1); Sodium 133 mmol/L (137-145)
[2022-07-13 07:02] LABS: Anisocytosis 1+; Neutrophils Absolute Manual 3337 /uL (3000-5900); Poikilocytosis 1+; Total Cells Counted 100
[2022-07-13] MEDS: PANTOPRAZOLE DR 40 MG TABLET 20 MG PO ×2 (07:28→20:56)
[2022-07-13] MEDS: PRIMIDONE 50 MG TABLET PO (10:06)
[2022-07-13] MEDS: cefTRIAXone 1,000 MG in SODIUM CHLORIDE 0.9% 100 ML 200 MG IV (10:06)
[2022-07-13] MEDS: RIVAROXABAN 10 MG TABLET 20 MG PO (10:07)
[2022-07-13] MEDS: DIGOXIN 0.125 MG TABLET PO (10:12)
--- NOTE | 2022-07-13 11:28 | CM.DPNOTE ---
Called [facility] and spoke to Aniyah Fajardo for BLS transport on 07/14/22 at 1300. Placido Santos CMA
--- NOTE | 2022-07-13 12:24 | PT.IPTN ---
Current Diagnoses Other specified disorders of veins (07/09/22) Cellulitis of right lower limb (07/09/22) Cellulitis of left lower limb (07/09/22) retirement (current) use of anticoagulants (07/09/22) Physical Therapy Treatment Note M2 PT-IP Current Condition Start: 07/12/22 13:59 Freq: NEEDED Status: Active Protocol: Document 07/12/22 14:31 AMB (Rec: 07/12/22 14:57 AMB [id number]) Physical Therapy Current Condition Current Condition Evaluation Date 07/12/22 Treatment Diagnosis Leg wounds,weakness,hx falls Onset Date 07/09/22 M3 PT-IP Subjective Start: 07/12/22 13:59 Freq: NEEDED Status: Active Protocol: Document 07/13/22 12:09 LJ (Rec: 07/13/22 12:24 LJ [id number]) Subjective Physical Therapy Visit Type Type Treatment Note Visit Start Time 11:45 Visit Stop Time 12:09 Total Visit Minutes 24 Number of SQL PROGRAMMER Visits 1 Physical Therapy Visit Comments Patient Comments Pt willing to work with PT. Granddasumit Capellan in room providing much incouragement. Therapy Pain Assessment Pain When Pain Assessed At Rest Pain Present Pain Present Pain Reported Location Generalized Scale Used no level verbalized Pain Behaviors Calling Out,Facial Grimacing, Wincing Pain Management Techniques Distraction,Elevation, Modification of Treatment,Re- positioning,Timing of Activity with Medications M4 PT-IP Mobility and Gait Start: 07/12/22 13:59 Freq: NEEDED Status: Active Protocol: Document 07/13/22 12:09 LJ (Rec: 07/13/22 12:24 LJ [id number]) PT-Bed Mobility Assessment Supine to Sit Supine to Sit Moderate Assistance,2 Person Assistance,Bedrails Scooting Scooting to Edge of Bed Dependent PT-Transfer Assessment Comments Mobility Comments pt unable/declined Gait Assessment Comments Gait Comments pt declined/unable PT-Balance Assessment Sitting Balance and Reactions Static Sitting Balance Ability Good Dynamic Sitting Balance Ability Good M5 PT-IP Objective Assessments Start: 07/12/22 13:59 Freq: NEEDED Status: Active Protocol: Document 07/12/22 14:31 AMB (Rec: 07/12/22 14:57 AMB [id number]) Strength Lower Extremity Strength Assessment Bilaterally Impaired Hip 2 Knee 3 Ankle 2 Comments Strength Comments pt with limited range through gravity at hips and knee. Did appear to have 3/5 strength at quads. M6 PT-IP Treatment Start: 07/12/22 13:59 Freq: NEEDED Status: Active Protocol: Document 07/13/22 12:09 MIGUEL (Rec: 07/13/22 12:24 LJ [id number]) Physical Therapy Treatment Education Education Provided Safety M7 PT-IP Assessment and Plan Start: 07/12/22 13:59 Freq: NEEDED Status: Active Protocol: Document 07/13/22 12:09 MIGUEL (Rec: 07/13/22 12:24 LJ [id number]) PT Summary Assessment and Plan Potential Rehabilitation Potential Fair Status of Condition at Evaluation Evolving Summary Impairments Pain,ROM,Strength,Balance,Bed Mobility,Transfers,Gait, Activity Tolerance Assessment Summary Pt completed bed mobility to point of sitting on side of bed bith ModA-MaxA x2. Foot of bed flat and HOB elevated to full sitting. Pt pivotted with MaxA to lift LEs and move toward side of bed. Final pivot completed with use of bed sheet-dependent. Able to sit on side of bed SBA and dangle LEs. She requires max cueing and max encouraging to participate in therapy. She will require SNF to improve stength, mobility and transfers to return to PLOF including gait. Pt left sitting on SOB with CATALYST UNIT OPERATOR to have a bed bath. Seundtr assisted with treatment to provide encouragement and get sense of what pt is capable of doing. Goals Bed Mobility Goal Minimal Assistance Transfer Goal Minimal Assistance Gait Goal Minimal Assistance Gait Distance 50' Days to Meet Goals 7 Frequency of Treatment Frequency Of Treatment Once a Day Treatment Plan Physical Therapy Treatment Plan Bed Mobility Training,Transfer Training,Gait Training, Therapeutic Exercise,Balance Retraining,Neuromuscular Re-ed Other Recommendations and Next Treatment Bed mobility, bed exercises Focus Recommendations To Nursing Amount of Assist Needed 2 Person Assist,Mechanical Lift Discharge Recommendations PT Discharge Recommendations SNF Rehab
[2022-07-13] MEDS: INSULIN LISPRO 100 UNIT/ML 3ML VIAL SUBCUT (12:51)
--- NOTE | 2022-07-13 13:20 | P.PN_ITS ---
Subjective Subjective Interval history: Borderline hypotension this morning. Slight dizziness but improved later. Mentating well. Home BP medications held, digoxin continued. Legs are appearing much improved, denies complaints other than weakness. Creatinine a bit up today as well. May be due to overdiuresis? Exam Vital Signs (past 8 hours): - 07/13/22 07:04 07/13/22 09:35 07/13/22 10:12 Temperature 97.9 F 97.2 F L Pulse Rate 46 L 56 L 68 Respiratory Rate 18 16 Blood Pressure 140/53 L 99/55 L Pulse Oximetry 100 99 Oxygen Flow Rate 0 0 Oxygen Delivery Method Room Air Oxygen Flow Rate 0 Narrative Exam Narrative: Gen: Alert, oriented, morbidly obese 77 y.o. ? female, NAD HEENT: normocephalic, atraumatic, conjunctiva clear, sclera non-icteric, oral mucosa pink and moist Neck: supple, full ROM, no JVD, trachea is midline Resp: Lungs CTA, non-labored breathing CV: RRR, no murmur or rubs Abd: obese, soft, non-tender, normoactive BTs Skin: Rash in intertriginous area of pannus, breasts and arms. Lower legs with open sores, weeping, peeling and pinpoint areas of bleeding. Toenails are thickened and yellowed. Cellulitis has improved, less erythematous compared to prior area which was demarcated. Neuro: Alert and oriented X 4 w/no focal deficits. Speech clear and coherent. Extremities: chronic venous edema Psyche: normal mood and affect Objective Labs 07/13/22 06:05 07/13/22 06:05 Labs: Laboratory Results - last 24 hr 07/12/22 07/13/22 07/13/22 13:55 06:05 06:05 WBC 4.7 RBC 3.78 L Hgb 9.0 L Hct 29.1 L MCV 76.8 L MCH 23.7 L MCHC 30.9 RDW 20.3 H Plt Count 236 Neut % (Auto) Not Reportable Lymph % (Auto) Not Reportable [place] % (Auto) Not Reportable Eos % (Auto) Not Reportable Baso % (Auto) Not Reportable Lymph # (Auto) Not Reportable [place] # (Auto) Not Reportable Baso # (Auto) Not Reportable Total Counted 100 Seg Neutrophils % 71.0 H Lymphocytes % (Manual) 18.0 L Atypical Lymphs % 3.0 H Monocytes % (Manual) 5.0 Basophils % (Manual) 3.0 H Neutrophils # (Manual) 3337 RBC Morphology Not Reportable Poikilocytosis 1+ H Anisocytosis 1+ H Sodium 133 L Potassium 4.7 Chloride 104 Carbon Dioxide 19 L BUN 52 H Creatinine 1.71 H Estimated GFR 30 L BUN/Creatinine Ratio 30.4 H Glucose 100 Calcium 7.6 L Magnesium 1.3 L Total Bilirubin 0.5 AST 32 ALT 23 Alkaline Phosphatase 285 H Total Protein 6.0 L Albumin 2.8 L Globulin 3.2 Albumin/Globulin Ratio 0.9 L PFSH Medical History Abnormal Pap smear of cervix (~1999) Anemia Ankle pain Anticoagulated B12 deficiency Cardiac arrhythmia (~1979) Cellulitis of both lower extremities Cervical cancer (~1999) Chicken pox Chronic pruritus Chronic venous stasis CKD (chronic kidney disease) Coronary artery disease (~2007) Diabetes mellitus Eczema Endometriosis (~1999) Foot pain GERD (gastroesophageal reflux disease) (~1962) GI bleeding Heart failure with reduced ejection fraction Hemorrhoid Hyperlipidemia (~1983) Hypertension (~1959) Myocardial infarction (~09/2014) Osteoarthritis Pulmonary embolism (~2014) Shoulder pain Venous insufficiency Surgical History Anesthesia History of angioplasty History of bladder suspension procedure Status post hysterectomy Status post laparoscopic cholecystectomy Surgical procedure planned (~2014) Family History Mother Cervical cancer Father Prostate cancer Social History household members: none pets and animals: No education level: college occupational status: other tatianna/hoahaoism: Holiness travel history: other leisure activities: other other: Watching tv seatbelt use: always water heater temp set < 120 deg: Yes working smoke detector in home: Yes fire extinguisher in home: No carbon monox detector in home: Yes firearms in home: No Smoking Status: Never smoker alcohol intake: never substance use type: does not use during the past year weight has: remained stable well-balanced diet: about half the time daily servings fruits/ve-4 caffeine: No eating out: 1-3 times/week Type(s) of exercise: walking and other duration: 15-30 minutes/day Assessment & Plan Assessment & Plan narrative: Bilateral Lower extremity cellulitis, acute and present on admission -Stopped vanco with no MRSA on cultures and growing gram negative bacilli. -wound cultures were collected in the ED and are pending as well as blood cultures. Blood cultures negative thus far. Wound cultures positive for Proteus and Enterobacter, each resistant to multiple antibiotics but sensitive to ceftriaxone. Continue ceftriaxone for now. HFrEF, exacerbation -She was administered one dose of IV furosemide 40 mg. held further given DIEGO. Though if continued worsening tomorrow this may reperesent a hypervolemic state. -TTE on 07/10 with EF of 20-25% and RV with decreased function. -Held torsemide and spironolactone initially, continue to hold diuretics -continue doses of amlodipine and metoprolol Atrial fibrillation, permanent -She is anticoagulated on rivaroxaban and this will be continued -Rythym and rate control with home doses of metoprolol and digoxin Essential hypertension, chronic, not well controlled today -hold home dosing today wiht hypotension. CAD, chronic -continue home dose of rosuvastatin, auto-subbed with atorvastatin Diabetes type 2, chronic -Glucose is 227, A1c is 7.9 -Continue glargine 19 units at bedtime, medium dose correctional insulin -carb controlled diet Essential tremor, chronic -Continue home dose of primadone Chronic puritis -Continue hydroxazine prn for itching DIEGO- creatinine 1.7 today, up from 1.0 normally. Held diuretic with continued worsening today. Will continue to observe for now with clinical improvement today thus far. Follow labs and clinically. VTE Prophylaxis: Wells risk score3? [X] Patient is currently anticoagulated, pharmacological and mechanical VTE prophylaxis contraindicated in the setting of bilatera LE cellulitis and wounds and patient will continue her anticoagulati on. Social determinants of health: Patient lives alone, limited in-home services Dispo: likely SNF, pending improvement in hypotension noted today. Code status: DNR/DNI w/limited interventions as discussed by hospitalist nurse practitioner with the patient who identifies russ Fermin as her surrogate and POA. Time Spent With Patient Critical Care time: I spent a total of [] minutes of critical care time on this patient's care today; this time is exclusive of procedural time.
--- NOTE | 2022-07-13 13:38 | PC.NURSE ---
Patient used the kamala lift today, after sitting up with physical therapy. She had a large formed bowel movement that she was incontinent of. Then she used the bed bowman and had another soft stool. She has multiple open area's and wounds to her back side, a stage two to sacral area/top of gluteal fold. Nystatin powder applied to areas and in groin. Bed changed and patient is eating lunch. Her lunch time blood sugar was 159.
[2022-07-13] MEDS: hydrOXYzine pamoate 25 MG CAPSULE PO (14:11)
[2022-07-13] MEDS: diphenhydrAMINE 25 MG TABLET PO (14:26)
--- NOTE | 2022-07-13 14:36 | CM.DPNOTE ---
Addendum entered by BIPIN Mckeon 07/13/22 14:43: Correction: BLS arranged for p/u at 1100 3.8.23 to [facility] Original Note: DCP Note Plan update: [facility] accepts for admission tomorrow if patient is medically ready, patient and family agreeable to this plan -discussed with grand daughter Marilia today. Dr Torres updated w/DCP BLS form completed; discussed that out of pocket cost is likely for BLS transport- states understanding. grand dtr has placed call to patient's insurance and it is likely [facility] [place] will cover the cost of BLS BLS coal picker arranged for tomorrow at 1300 in anticipation that patient will be medically ready PASRR completed in anticipation of SNF Plan: DC to [facility] via BLS [facility]
[2022-07-13] MEDS: ACETAMINOPHEN 325 MG TABLET 650 MG PO (19:49)
[2022-07-13] MEDS: PRIMIDONE 50 MG TABLET 100 MG PO (20:54)
[2022-07-13] MEDS: INSULIN GLARGINE 100 UNIT/ML 3ML PEN 30 UNIT SUBCUT (20:54)
[2022-07-13] MEDS: ATORVASTATIN 20 MG TABLET 40 MG PO (20:54)
[2022-07-13] MEDS: SODIUM CHLORIDE 0.9% FLUSH 10 ML IV (20:55)
[2022-07-13] MEDS: METOPROLOL IR 50 MG TABLET PO (22:06)
--- NOTE | 2022-07-13 23:18 | PC.NURSE ---
Patient is alert and oriented and talks excessively making it difficult to get out of room. Breath sounds w/expiratory wheezing in left lobes. Frequent, moist sounding, non-productive cough. HR irregular w/telemetry reading of afib CVR. BP elevated at 143/71. Denies nausea. BT hypoactive but soft; large. Has external catheter in place. Is able to turn self but staff assist to place pillows. Has open area at top of gluteal cleft but does not appear to be pressure related. Gait not assessed; previous RN reported she is transferred with kamala lift. Multiple abrasions and bruises on all extremities. Skin on bilateral LE/feet is dry, scaly, with erythema and weeping open areas; 2+ edema present. Complained of 5/10 pain and was medicated with Tylenol and is currently asleep. Has problems with itchiness and Benadryl is being used prn. Fall risk score is moderate and bed alarm is activated although patient calls appropriately for assistance.
[2022-07-14] MEDS: diphenhydrAMINE 25 MG TABLET PO ×3 (00:54→20:06)
[2022-07-14 01:00] VITALS: BP 122/41; PULSE 56; RESP 15; TEMP 35.9; O2SAT 100
[2022-07-14] MEDS: hydrOXYzine pamoate 25 MG CAPSULE PO ×3 (04:46→17:08)
[2022-07-14 05:00] VITALS: BP 121/44; PULSE 59; RESP 16; TEMP 36.1; O2SAT 100
[2022-07-14] MEDS: PANTOPRAZOLE DR 40 MG TABLET 20 MG PO ×2 (06:33→21:41)
[2022-07-14 08:10] LABS: Add Manual Diff / Slide Review NO; Basophils Absolute Auto 100 /uL (0-100); Basophils Percent Auto 1.2 % (0-2); Eosinophils Absolute Auto 100 /uL (0-450); Eosinophils Percent Auto 3.2 % (2-4); Hematocrit 28.9 % (36-46); Hemoglobin 9.1 g/dL (12.0-16.0); Lymphocytes Absolute Auto 900 /uL (1100-4500); Lymphocytes Percent Auto 18.2 % (25-40); Mean Corpuscular HGB Conc 31.3 % (30-36); Mean Corpuscular Hemoglobin 23.9 PG (26-34); Mean Corpuscular Volume 76.2 fL (80-100); Monocytes Absolute Auto 1000 /uL (0-900); Neutrophils Absolute Auto 2600 /uL (1500-7000); Neutrophils Percent Auto 56.4 % (50-75); Platelet Count 234 X10^3/uL (150-400); White Blood Cell Count 4.7 X10^3/uL (4.5-11.0)
[2022-07-14 08:14] VITALS: BP 110/56; PULSE 60; RESP 18; TEMP 36.9; O2SAT 97
[2022-07-14 08:17] LABS: BUN Creatinine Ratio 32.9 (6-22); Blood Urea Nitrogen 54 mg/dL (7-17); Calcium 7.6 mg/dL (8.4-10.2); Carbon Dioxide 18 mmol/L (22-32); Chloride 107 mmol/L (98-107); Estimated Glomerular Filt Rate 32 mL/min (>60); Glucose 91 mg/dL (80-110); HEMOLYSIS < 15 (0-50); Magnesium 1.5 mg/dL (1.6-2.3); Potassium 4.7 mmol/L (3.4-5.1); Sodium 134 mmol/L (137-145)
[2022-07-14] MEDS: DIGOXIN 0.125 MG TABLET PO (09:57)
[2022-07-14] MEDS: ACETAMINOPHEN 325 MG TABLET 650 MG PO ×2 (09:57→20:06)
[2022-07-14] MEDS: RIVAROXABAN 10 MG TABLET 20 MG PO (09:57)
[2022-07-14] MEDS: PRIMIDONE 50 MG TABLET PO (09:57)
[2022-07-14] MEDS: METOPROLOL IR 50 MG TABLET 150 MG PO (09:57)
[2022-07-14] MEDS: SODIUM CHLORIDE 0.9% FLUSH 10 ML IV (09:58)
[2022-07-14] MEDS: cefTRIAXone 1,000 MG in SODIUM CHLORIDE 0.9% 100 ML 200 MG IV (09:58)
--- NOTE | 2022-07-14 10:38 | CM.DPNOTE ---
Spoke with Rosmery at Ambulance to belt picker patient on 07/15 at 1300. Placido Santos CM Assist.
[2022-07-14] MEDS: MAGNESIUM CHLORIDE 64 MG TABLET 128 MG PO (11:23)
[2022-07-14] MEDS: INSULIN LISPRO 100 UNIT/ML 3ML VIAL SUBCUT ×2 (11:24→16:31)
--- NOTE | 2022-07-14 11:31 | PM.PN.1 ---
Subjective Subjective Interval history: Slight dizziness still this morning but feeling a bit better from yesterday but still a bit off. Mentating well. Home BP medications held yesterday with digoxin continued. DIEGO has improved but just slightly compared to yesterday. Continuing to hold some of her home medications for BP at this time. Exam Vital Signs (past 8 hours): - 07/14/22 05:00 07/14/22 08:14 Temperature 97.0 F L 98.5 F Pulse Rate 59 L 60 Respiratory Rate 16 18 Blood Pressure 121/44 L 110/56 L Pulse Oximetry 100 97 Oxygen Flow Rate 0 0 Oxygen Delivery Method Room Air Oxygen Flow Rate 0 Narrative Exam Narrative: Gen: Alert, oriented, morbidly obese 77 y.o. ? female, NAD HEENT: normocephalic, atraumatic, conjunctiva clear, sclera non-icteric, oral mucosa pink and moist Neck: supple, full ROM, no JVD, trachea is midline Resp: Lungs CTA, non-labored breathing CV: RRR, no murmur or rubs Abd: obese, soft, non-tender, normoactive BTs Skin: Rash in intertriginous area of pannus, breasts and arms. Lower legs with open sores, weeping, peeling and pinpoint areas of bleeding. Toenails are thickened and yellowed. Cellulitis has improved, less erythematous compared to prior area which was demarcated. Neuro: Alert and oriented X 4 w/no focal deficits. Speech clear and coherent. Extremities: chronic venous edema Psyche: normal mood and affect Objective Labs 07/14/22 07:52 07/14/22 07:52 Labs: Laboratory Results - last 24 hr 07/14/22 07/14/22 07:52 07:52 WBC 4.7 RBC 3.80 L Hgb 9.1 L Hct 28.9 L MCV 76.2 L MCH 23.9 L MCHC 31.3 RDW 20.0 H Plt Count 234 Neut % (Auto) 56.4 Lymph % (Auto) 18.2 L [place] % (Auto) 21.0 H Eos % (Auto) 3.2 Baso % (Auto) 1.2 Neut # (Auto) 2600 Lymph # (Auto) 900 L [place] # (Auto) 1000 H Eos # (Auto) 100 Baso # (Auto) 100 Sodium 134 L Potassium 4.7 Chloride 107 Carbon Dioxide 18 L BUN 54 H Creatinine 1.64 H Estimated GFR 32 L BUN/Creatinine Ratio 32.9 H Glucose 91 Calcium 7.6 L Magnesium 1.5 L PFSH Medical History Abnormal Pap smear of cervix (~1999) Anemia Ankle pain Anticoagulated B12 deficiency Cardiac arrhythmia (~1979) Cellulitis of both lower extremities Cervical cancer (~1999) Chicken pox Chronic pruritus Chronic venous stasis CKD (chronic kidney disease) Coronary artery disease (~2007) Diabetes mellitus Eczema Endometriosis (~1999) Foot pain GERD (gastroesophageal reflux disease) (~1962) GI bleeding Heart failure with reduced ejection fraction Hemorrhoid Hyperlipidemia (~1983) Hypertension (~1959) Myocardial infarction (~09/2014) Osteoarthritis Pulmonary embolism (~2014) Shoulder pain Venous insufficiency Surgical History Anesthesia History of angioplasty History of bladder suspension procedure Status post hysterectomy Status post laparoscopic cholecystectomy Surgical procedure planned (~2014) Family History Mother Cervical cancer Father Prostate cancer Social History household members: none pets and animals: No education level: college occupational status: other tatianna/cheondoism: Judaism travel history: other leisure activities: other other: Watching tv seatbelt use: always water heater temp set < 120 deg: Yes working smoke detector in home: Yes fire extinguisher in home: No carbon monox detector in home: Yes firearms in home: No Smoking Status: Never smoker alcohol intake: never substance use type: does not use during the past year weight has: remained stable well-balanced diet: about half the time daily servings fruits/ve-4 caffeine: No eating out: 1-3 times/week Type(s) of exercise: walking and other duration: 15-30 minutes/day Assessment & Plan Assessment & Plan narrative: Bilateral Lower extremity cellulitis, acute and present on admission -Stopped vanco with no MRSA on cultures and growing gram negative bacilli. -wound cultures were collected in the ED and are pending as well as blood cultures. Blood cultures negative thus far. Wound cultures positive for Proteus and Enterobacter, each resistant to multiple antibiotics but sensitive to ceftriaxone. Continue ceftriaxone for now. HFrEF, exacerbation -She was administered one dose of IV furosemide 40 mg. held further given DIEGO -TTE on 07/10 with EF of 20-25% and RV with decreased function. -Held torsemide and spironolactone initially, and will continue to hold diuretics for now -continue doses of amlodipine and metoprolol Atrial fibrillation, permanent -She is anticoagulated on rivaroxaban and this will be continued -Rythym and rate control with home doses of metoprolol and digoxin Essential hypertension, chronic, not well controlled today -continue to hold home lisinopril and amlodipine, resumed home beta blockers today after holding yesterday. CAD, chronic -continue home dose of rosuvastatin, auto-subbed with atorvastatin Diabetes type 2, chronic -Glucose is 227, A1c is 7.9 -Continue glargine 19 units at bedtime, medium dose correctional insulin -carb controlled diet Essential tremor, chronic -Continue home dose of primadone Chronic puritis -Continue hydroxazine prn for itching DIEGO- creatinine 1.7 yesterday, up from 1.0 normally. Held diuretic with continued worsening. Will continue to observe for now with clinical and lab improvement thus far. Follow labs and clinically. VTE Prophylaxis: Wells risk score3? [X] Patient is currently anticoagulated, pharmacological and mechanical VTE prophylaxis contraindicated in the setting of bilatera LE cellulitis and wounds and patient will continue her anticoagulation. Social determinants of health: Patient lives alone, limited in-home services Dispo: likely SNF, pending improvement in hypotension and DIEGO, probably tomorrow Code status: DNR/DNI w/limited interventions as discussed by hospitalist nurse practitioner with the patient who identifies russ Fermin as her surrogate and POA. Time Spent With Patient Critical Care time: I spent a total of [] minutes of critical care time on this patient's care today; this time is exclusive of procedural time.
[2022-07-14 15:04] VITALS: BP 144/59; PULSE 54; RESP 18; TEMP 36.3; O2SAT 100
[2022-07-14 15:06] LABS: TSH w/ Reflex to FT4 4.16 uIU/mL (0.47-4.68)
--- NOTE | 2022-07-14 15:30 | PT.IPTN ---
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 (07/09/22) Physical Therapy Treatment Note M2 PT-IP Current Condition Start: 07/12/22 13:59 Freq: NEEDED Status: Active Protocol: Document 07/12/22 14:31 AMB (Rec: 07/12/22 14:57 AMB [id number]) Physical Therapy Current Condition Current Condition Evaluation Date 07/12/22 Treatment Diagnosis Leg wounds,weakness,hx falls Onset Date 07/09/22 M3 PT-IP Subjective Start: 07/12/22 13:59 Freq: NEEDED Status: Active Protocol: Document 07/14/22 16:06 TS (Rec: 07/14/22 16:29 TS [id number]) Subjective Physical Therapy Visit Type Type Treatment Note Visit Start Time 15:30 Visit Stop Time 16:00 Total Visit Minutes 30 Number of MED SURG NURSE Visits 2 Physical Therapy Visit Comments Patient Comments Pt agreeable to PT, granddaughter Marilia in room for encouragement. Therapy Pain Assessment Pain When Pain Assessed At Rest Pain Present Pain Present Allowed to Sleep Location Generalized Pain Behaviors Calling Out,Facial Grimacing, Wincing Pain Management Techniques Distraction,Elevation, Modification of Treatment,Re- positioning,Timing of Activity with Medications M4 PT-IP Mobility and Gait Start: 07/12/22 13:59 Freq: NEEDED Status: Active Protocol: Document 07/14/22 16:06 TS (Rec: 07/14/22 16:29 TS [id number]) PT-Bed Mobility Assessment Rolling Type of Rolling Log Rolling Level of Assist Maximal Assistance Supine to Sit Supine to Sit Moderate Assistance,2 Person Assistance,Bedrails Sit to Supine Sit to Supine Maximum Assistance,2 Person Assistance Scooting Scooting to Edge of Bed Dependent Scooting Up and Down in Bed Dependent PT-Transfer Assessment Comments Mobility Comments Pt agreeable to PT session, granddaughter and STONE SETTER present. Pt performed log roll to right side MaxAx2 w/HOB elevated and feet flat. She performed supine to sit with bed flat MaxAx2 with bed sheet to bring into full sitting and cues for use of UEs on handrail. Pt demonstrates good static sitting and required MaxAx2 with bed sheet to bring to EOB, STONE SETTER and granddaughter performed pericare. She returned to supine with MAxAx2 for her trunk and BLEs. Pt was left with call light and tray nearby, RN notified. Gait Assessment Comments Gait Comments pt declined/unable PT-Balance Assessment Sitting Balance and Reactions Static Sitting Balance Ability Good Dynamic Sitting Balance Ability Good M5 PT-IP Objective Assessments Start: 07/12/22 13:59 Freq: NEEDED Status: Active Protocol: Document 07/12/22 14:31 AMB (Rec: 07/12/22 14:57 AMB [id number]) Strength Lower Extremity Strength Assessment Bilaterally Impaired Hip 2 Knee 3 Ankle 2 Comments Strength Comments pt with limited range through gravity at hips and knee. Did appear to have 3/5 strength at quads. M6 PT-IP Treatment Start: 07/12/22 13:59 Freq: NEEDED Status: Active Protocol: Document 07/13/22 12:09 LJ (Rec: 07/13/22 12:24 LJ [id number]) Physical Therapy Treatment Education Education Provided Safety M7 PT-IP Assessment and Plan Start: 07/12/22 13:59 Freq: NEEDED Status: Active Protocol: Document 07/14/22 16:06 TS (Rec: 07/14/22 16:29 TS [id number]) PT Summary Assessment and Plan Potential Rehabilitation Potential Fair Status of Condition at Evaluation Evolving Summary Impairments Pain,ROM,Strength,Balance,Bed Mobility,Transfers,Gait, Activity Tolerance Assessment Summary Pt performed log roll to right side MaxAx2 w/HOB elevated and feet flat. She performed supine to sit with bed flat MaxAx2 with bed sheet to bring into full sitting and cues for use of UEs on handrail. Pt demonstrates good static sitting and required MaxAx2 with bed sheet to bring to EOB , STONE SETTER and granddaughter performed pericare. She returned to supine with MAxAx2 for her trunk and BLEs. Pt was left with call light and tray nearby, RN notified. PT continues to recommend SNF due to heavy assistance, increasing bed mobility, and gait. Goals Bed Mobility Goal Minimal Assistance Transfer Goal Minimal Assistance Gait Goal Minimal Assistance Gait Distance 50' Days to Meet Goals 7 Frequency of Treatment Frequency Of Treatment Once a Day Treatment Plan Physical Therapy Treatment Plan Bed Mobility Training,Transfer Training,Gait Training, Therapeutic Exercise,Balance Retraining,Neuromuscular Re-ed Other Recommendations and Next Treatment Bed mobility, bed exercises Focus Recommendations To Nursing Amount of Assist Needed 2 Person Assist,Mechanical Lift Discharge Recommendations PT Discharge Recommendations SNF Rehab Transportation Needs at Discharge Wheelchair/Cabulance
--- NOTE | 2022-07-14 15:59 | CM.DPC ---
DCP/continued: Reviewed chart. Patient not medically stable to d/c today. Current d/c plan is [facility] via BLS when stable. [facility] has BLS tentatively scheduled for apple picker tomorrow 1:00pm. P: CM team to confirm d/c in AM with provider. BLS scheduled for 1:00pm. BLS nessecity form needs to be signed by provider. MAGALI
[2022-07-14 19:45] VITALS: BP 145/45; PULSE 61; RESP 15; TEMP 35.9; O2SAT 100
[2022-07-14] MEDS: ATORVASTATIN 20 MG TABLET 40 MG PO (21:29)
[2022-07-14] MEDS: PRIMIDONE 50 MG TABLET 100 MG PO (21:29)
[2022-07-14] MEDS: INSULIN GLARGINE 100 UNIT/ML 3ML PEN 30 UNIT SUBCUT (21:30)
[2022-07-14] MEDS: METOPROLOL IR 50 MG TABLET PO (21:41)
[2022-07-14 23:00] VITALS: BP 131/50; PULSE 59; RESP 15; TEMP 36.6; O2SAT 100
--- NOTE | 2022-07-14 23:07 | DI.US.S_ITS ---
PROCEDURE: US PERIPH VENOUS UP EXTREM LT INDICATIONS: SWOLLEN ARM, MIDLINE, R/O DVT TECHNIQUE: Real-time imaging, as well as color and pulse Doppler interrogation, was performed of the left upper extremity deep veins from the inferior neck to the antecubital fossa. COMPARISON: None. FINDINGS: The internal jugular vein, visualized portions of the subclavian vein, axillary, and brachial veins are free of intraluminal thrombus. Where physically possible, the veins are normally compressible. Color and pulse Doppler demonstrate normal intraluminal flow, with expected phasicity and pulsatility. Additional scanning of the cephalic and basilic veins of the superficial system demonstrate normal compressibility, without thrombus. IMPRESSION: No deep venous thrombosis in the visualized upper extremity. Dictated by: Brijesh Carver M.D. on 07/15/2022 at 10:42 Approved by: Brijesh Carver M.D. on 07/15/2022 at 10:42
--- NOTE | 2022-07-15 00:52 | PC.NURSE ---
Patient is alert and oriented. Noted bilateral UE tremors for which she takes Primidone. Breath sounds CTA with RA sat of 100%. HR irregular; hx of afib. Denies nausea. BT present and abdomen is soft; had BM on previous shift. Has external female catheter; denies dysuria. Is being repositioned q2h but is able to assist. Gait not assessed and reportedly using Judith lift to get out of bed. Increased edema noted in all extremities; up to groin on LE. Noted increased edema, erythema and bruising of left UE where she has midline IV access; denies pain. Dr Britt contacted and in to examine. Instructed not to flush line or use tonight unless absolutely required and will have US done in a.m. to R/O DVT. Continues to have erythema in bilateral LE with weeping areas. Medicated earlier for bilateral LE pain and itching with Tylenol + Benadryl. Fall risk score is high and bed alarm is activated.
[2022-07-15 03:00] VITALS: BP 138/45; PULSE 57; RESP 16; TEMP 36; O2SAT 99
[2022-07-15] MEDS: PANTOPRAZOLE DR 40 MG TABLET 20 MG PO ×2 (06:12→21:47)
[2022-07-15 07:30] VITALS: BP 152/53; PULSE 56; RESP 18; TEMP 36.5; O2SAT 100
[2022-07-15 08:53] LABS: Add Manual Diff / Slide Review NO; Basophils Absolute Auto 0 /uL (0-100); Basophils Percent Auto 0.8 % (0-2); Eosinophils Absolute Auto 100 /uL (0-450); Eosinophils Percent Auto 3.7 % (2-4); Hematocrit 29.1 % (36-46); Hemoglobin 9.1 g/dL (12.0-16.0); Lymphocytes Absolute Auto 700 /uL (1100-4500); Lymphocytes Percent Auto 18.9 % (25-40); Mean Corpuscular HGB Conc 31.3 % (30-36); Mean Corpuscular Hemoglobin 23.9 PG (26-34); Mean Corpuscular Volume 76.5 fL (80-100); Monocytes Absolute Auto 800 /uL (0-900); Monocytes Percent Auto 19.9 % (3-14); Neutrophils Absolute Auto 2100 /uL (1500-7000); Neutrophils Percent Auto 56.7 % (50-75); Platelet Count 225 X10^3/uL (150-400); Red Cell Distribution Width 20.2 % (11.6-14.8); White Blood Cell Count 3.8 X10^3/uL (4.5-11.0)
[2022-07-15] MEDS: RIVAROXABAN 10 MG TABLET 20 MG PO (08:59)
[2022-07-15] MEDS: ACETAMINOPHEN 325 MG TABLET 650 MG PO ×3 (08:59→20:06)
[2022-07-15] MEDS: diphenhydrAMINE 25 MG TABLET PO ×3 (08:59→20:07)
[2022-07-15] MEDS: hydrOXYzine pamoate 25 MG CAPSULE PO ×3 (09:01→20:07)
[2022-07-15] MEDS: PRIMIDONE 50 MG TABLET PO (09:02)
[2022-07-15] MEDS: METOPROLOL IR 50 MG TABLET 150 MG PO (09:04)
[2022-07-15 09:05] VITALS: BP 152/53; PULSE 56
[2022-07-15] MEDS: DIGOXIN 0.125 MG TABLET PO (09:05)
[2022-07-15 09:14] LABS: Anisocytosis 1+
[2022-07-15 09:20] LABS: BUN Creatinine Ratio 32.5 (6-22); Blood Urea Nitrogen 55 mg/dL (7-17); Calcium 7.7 mg/dL (8.4-10.2); Carbon Dioxide 20 mmol/L (22-32); Chloride 104 mmol/L (98-107); Estimated Glomerular Filt Rate 31 mL/min (>60); Glucose 92 mg/dL (80-110); HEMOLYSIS < 15 (0-50); Magnesium 1.5 mg/dL (1.6-2.3); Potassium 4.7 mmol/L (3.4-5.1); Sodium 133 mmol/L (137-145)
--- NOTE | 2022-07-15 10:39 | CM.DPNOTE ---
Addendum entered by Sidra Santos 07/15/22 10:51: Updated, BLS brain picker time changed to 1100. Placido Santos CMA Original Note: Called [facility] and [facility] to let them know patient will be arriving at 1100 on Tuesday, 07/16. Sidra Santos CM Assist.
[2022-07-15] MEDS: MAGNESIUM CHLORIDE 64 MG TABLET 128 MG PO (11:15)
[2022-07-15] MEDS: INSULIN LISPRO 100 UNIT/ML 3ML VIAL SUBCUT ×2 (12:26→16:49)
--- NOTE | 2022-07-15 12:37 | PM.PN.1 ---
Subjective Subjective Interval history: Complains of itching today bilateral lower extremities. No nausea or vomiting. Also with some neck pain from the bed. Overnight with UE swelling, DVT study negative but midline infiltrated, and removed. No need for additional fluids at this time, medications given orally for now, will hold off on IV replacement for now. Exam Vital Signs (past 8 hours): - 07/15/22 09:05 07/15/22 07:30 Temperature 97.7 F Pulse Rate 56 L 56 L Respiratory Rate 18 Blood Pressure 152/53 H 152/53 H Pulse Oximetry 100 Oxygen Flow Rate 0 Oxygen Delivery Method Room Air Oxygen Flow Rate 0 Narrative Exam Narrative: Gen: Alert, oriented, morbidly obese 77 y.o. ? female, NAD HEENT: normocephalic, atraumatic, conjunctiva clear, sclera non-icteric, oral mucosa pink and moist Neck: supple, full ROM, no JVD, trachea is midline Resp: bibasilar rales, no wheezing. CV: RRR, no murmur or rubs Abd: obese, soft, non-tender, normoactive BTs Skin: Rash in intertriginous area of pannus, breasts and arms. Lower legs with open sores, weeping, peeling and pinpoint areas of bleeding. Toenails are thickened and yellowed. Cellulitis has improved, less erythematous compared to prior area which was demarcated. Neuro: Alert and oriented X 4 w/no focal deficits. Speech clear and coherent. Extremities: chronic venous edema, no joint effusions Psyche: normal mood and affect Objective Labs 07/15/22 08:27 07/15/22 08:27 Labs: Laboratory Results - last 24 hr 07/14/22 07/15/22 07/15/22 07:52 08:27 08:27 WBC 3.8 L RBC 3.80 L Hgb 9.1 L Hct 29.1 L MCV 76.5 L MCH 23.9 L MCHC 31.3 RDW 20.2 H Plt Count 225 Neut % (Auto) 56.7 Lymph % (Auto) 18.9 L [place] % (Auto) 19.9 H Eos % (Auto) 3.7 Baso % (Auto) 0.8 Neut # (Auto) 2100 Lymph # (Auto) 700 L [place] # (Auto) 800 Eos # (Auto) 100 Baso # (Auto) 0 RBC Morphology Not Reportable Anisocytosis 1+ H Sodium 133 L Potassium 4.7 Chloride 104 Carbon Dioxide 20 L BUN 55 H Creatinine 1.69 H Estimated GFR 31 L BUN/Creatinine Ratio 32.5 H Glucose 92 Calcium 7.7 L Magnesium 1.5 L TSH 4.16 PFSH Medical History Abnormal Pap smear of cervix (~1999) Anemia Ankle pain Anticoagulated B12 deficiency Cardiac arrhythmia (~1979) Cellulitis of both lower extremities Cervical cancer (~1999) Chicken pox Chronic pruritus Chronic venous stasis CKD (chronic kidney disease) Coronary artery disease (~2007) Diabetes mellitus Eczema Endometriosis (~1999) Foot pain GERD (gastroesophageal reflux disease) (~1962) GI bleeding Heart failure with reduced ejection fraction Hemorrhoid Hyperlipidemia (~1983) Hypertension (~1959) Myocardial infarction (~09/2014) Osteoarthritis Pulmonary embolism (~2014) Shoulder pain Venous insufficiency Surgical History Anesthesia History of angioplasty History of bladder suspension procedure Status post hysterectomy Status post laparoscopic cholecystectomy Surgical procedure planned (~2014) Family History Mother Cervical cancer Father Prostate cancer Social History household members: none pets and animals: No education level: college occupational status: other tatianna/restorationist: Buddhist travel history: other leisure activities: other other: Watching tv seatbelt use: always water heater temp set < 120 deg: Yes working smoke detector in home: Yes fire extinguisher in home: No carbon monox detector in home: Yes firearms in home: No Smoking Status: Never smoker alcohol intake: never substance use type: does not use during the past year weight has: remained stable well-balanced diet: about half the time daily servings fruits/ve-4 caffeine: No eating out: 1-3 times/week Type(s) of exercise: walking and other duration: 15-30 minutes/day Assessment & Plan Assessment & Plan narrative: Bilateral Lower extremity cellulitis, acute and present on admission -Stopped vanco with no MRSA on cultures and growing gram negative bacilli. -wound cultures were collected in the ED and are pending as well as blood cultures. Blood cultures negative thus far. Wound cultures positive for Proteus and Enterobacter, each resistant to multiple antibiotics but sensitive to ceftriaxone. Continued but can narrow to oral therapy today given improvement, will have to be cefuroxime and doxycycline to cover Proteus and Enterobacter respectively. HFrEF, acute on chronic -She was administered one dose of IV furosemide 40 mg. held further given DIEGO -TTE on 07/10 with EF of 20-25% and RV with decreased function. -Held torsemide and spironolactone initially. Possible DIEGO now a function of volume overload today with bibasilar rales, will restart home torsemide. -continue doses metoprolol Atrial fibrillation, permanent -She is anticoagulated on rivaroxaban and this will be continued -Rythym and rate control with home doses of metoprolol and digoxin Essential hypertension, chronic, not well controlled today -continue to hold home lisinopril and amlodipine, resumed home beta blockers today after holding yesterday. Resumed home diuretics today. If remains hypertensive after diuretic resumption, resume lisinopril next given CHFrEF. CAD, chronic -continue home dose of rosuvastatin, auto-subbed with atorvastatin Diabetes type 2, chronic -Glucose is 227, A1c is 7.9 -Continue glargine 19 units at bedtime, medium dose correctional insulin -carb controlled diet Essential tremor, chronic -Continue home dose of primadone Chronic puritis -Continue hydroxazine prn for itching, okay to place moisturizing cream as dry skin in her legs likely the cause. DIEGO- creatinine 1.7 yesterday, up from 1.0 normally. Held diuretic with continued worsening. Will continue to observe for now with clinical and lab improvement thus far. Follow labs and clinically. VTE Prophylaxis: Wells risk score3? [X] Patient is currently anticoagulated, pharmacological and mechanical VTE prophylaxis contraindicated in the setting of bilatera LE cellulitis and wounds and patient will continue her anticoagulation. Social determinants of health: Patient lives alone, limited in-home services Dispo: likely SNF, pending improvement in DIEGO, may be 1-2 more days. Code status: DNR/DNI w/limited interventions as discussed by hospitalist nurse practitioner with the patient who identifies russ Fermin as her surrogate and POA. Time Spent With Patient Critical Care time: I spent a total of [] minutes of critical care time on this patient's care today; this time is exclusive of procedural time.
[2022-07-15] MEDS: DOXYCYCLINE HYCLATE 100 MG TABLET PO ×2 (13:07→20:07)
[2022-07-15] MEDS: cefUROXime 250 MG TABLET 500 MG PO ×2 (13:07→20:08)
[2022-07-15 15:23] VITALS: BP 137/56; PULSE 56; RESP 18; TEMP 36.8; O2SAT 98
[2022-07-15] MEDS: OXYCODONE IR 5 MG TABLET PO (15:25)
--- NOTE | 2022-07-15 15:47 | PT.IPTN ---
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) use of anticoagulants (07/09/22) Physical Therapy Treatment Note M2 PT-IP Current Condition Start: 07/12/22 13:59 Freq: NEEDED Status: Active Protocol: Document 07/15/22 14:24 SP (Rec: 07/15/22 17:42 SP [id number]) Physical Therapy Current Condition Current Condition Evaluation Date 07/12/22 Treatment Diagnosis Leg wounds,weakness,hx falls Onset Date 07/09/22 M3 PT-IP Subjective Start: 07/12/22 13:59 Freq: NEEDED Status: Active Protocol: Document 07/15/22 14:24 SP (Rec: 07/15/22 17:42 SP [id number]) Subjective Physical Therapy Visit Type Type Treatment Note Visit Start Time 14:25 Visit Stop Time 15:47 Total Visit Minutes 32 Notes Split tx due to pt required use bed bowman. REHABILITATION PROGRAM MANAGER Aide and FUEL AGENT assisted 2-3 persons required during mobility. Pt seen [id number], [id number]. Number of REHABILITATION PROGRAM MANAGER Visits 3 Physical Therapy Visit Comments Patient Comments Pt agreeable to working with therapy. I will try to do the best I can but having extreme itching everywhere and L>R LEs hurting. Therapy Pain Assessment Pain When Pain Assessed During Mobility Pain Present Pain Present Pain Reported Location legs Scale Used alot pain with mobility L>R Description With Movement Pain Behaviors Calling Out,Facial Grimacing, Guarding,Moaning,Restlessness, Wincing Pain Management Techniques Distraction,Modification of Treatment,Re-positioning M4 PT-IP Mobility and Gait Start: 07/12/22 13:59 Freq: NEEDED Status: Active Protocol: Document 07/15/22 14:24 SP (Rec: 07/15/22 17:42 SP [id number]) PT-Bed Mobility Assessment Rolling Type of Rolling Log Rolling Level of Assist Maximal Assistance Supine to Sit Supine to Sit Maximum Assistance,Total Assistance,2 Person Assistance ,Head of Bed Elevated,Bedrails Scooting Scooting to Edge of Bed Dependent PT-Transfer Assessment Comments Mobility Comments Pt agreeable to PT session, c/ o itching all over, notified nursing aware. REHABILITATION PROGRAM MANAGER removed periwick. Pt requested use bed bowman for BM after vital assessment, Max A x2 LR R use of bed tilt feature and transfer pad, trunk support and BLEs assist, 3rd person position bed bowman. REHABILITATION PROGRAM MANAGER returned after use bed bowman nursing. When returned: Max A x2 Min A RLE to EOB, LLE Max A each, Elevated HOB Heavy Max A x1 trunk righting sit, Max A x2 scoot to mid bed (lower portion of bed), unable complete to EOB fully, pt reported R>L LE pain modified long sitting in bed feet dangling off and requested get up back in bed no able to further. REHABILITATION PROGRAM MANAGER/PT Aide/ FUEL AGENT use of Judith to safely reposition pt back up in bed , pt requested use of bed bowman. REHABILITATION PROGRAM MANAGER/ PT AIde/FUEL AGENT assisted Max A x3 LR L use bed rail and tilt bed feature and return to elevated supine. FUEL AGENT took over care. Gait Assessment Comments Gait Comments pt unable PT-Balance Assessment Sitting Balance and Reactions Static Sitting Balance Ability Poor Dynamic Sitting Balance Ability Poor M5 PT-IP Objective Assessments Start: 07/12/22 13:59 Freq: NEEDED Status: Active Protocol: Document 07/12/22 14:31 AMB (Rec: 07/12/22 14:57 AMB [id number]) Strength Lower Extremity Strength Assessment Bilaterally Impaired Hip 2 Knee 3 Ankle 2 Comments Strength Comments pt with limited range through gravity at hips and knee. Did appear to have 3/5 strength at quads. M6 PT-IP Treatment Start: 07/12/22 13:59 Freq: NEEDED Status: Active Protocol: Document 07/15/22 14:24 SP (Rec: 07/15/22 17:42 SP [id number]) Physical Therapy Treatment Education Education Provided Safety M7 PT-IP Assessment and Plan Start: 07/12/22 13:59 Freq: NEEDED Status: Active Protocol: Document 07/15/22 14:24 SP (Rec: 07/15/22 17:42 SP [id number]) PT Summary Assessment and Plan Potential Rehabilitation Potential Fair Status of Condition at Evaluation Evolving Summary Impairments Pain,ROM,Strength,Balance,Bed Mobility,Transfers,Gait, Activity Tolerance Progress Towards Goals Slow Progress due to Pain,Slow Progress due to Activity Tolerance Assessment Summary Pt performed LR Max A 2-3 persons to assist bed bowman placement, Elevated sup>sit Heavy Max A x2, scoot to partial way EOB. Sit>supine/ reposition up in bed via Judith . Pt will requires SNF to progress strength and functional mobility. Goals Bed Mobility Goal Minimal Assistance Transfer Goal Minimal Assistance Gait Goal Minimal Assistance Gait Distance 50' Days to Meet Goals 7 Frequency of Treatment Frequency Of Treatment Once a Day Treatment Plan Physical Therapy Treatment Plan Bed Mobility Training,Transfer Training,Gait Training, Therapeutic Exercise,Balance Retraining,Neuromuscular Re-ed Other Recommendations and Next Treatment bed mob, bed exercises, Sit Focus EOB, STS if able w/ FWW. Recommendations To Nursing Amount of Assist Needed Mechanical Lift Discharge Recommendations PT Discharge Recommendations SNF Rehab Transportation Needs at Discharge Wheelchair/Cabulance
[2022-07-15] MEDS: TORSEMIDE 10 MG TABLET 20 MG PO (16:07)
[2022-07-15 19:50] VITALS: BP 174/99; PULSE 118; RESP 18; TEMP 36.5; O2SAT 98
[2022-07-15] MEDS: PRIMIDONE 50 MG TABLET 100 MG PO (20:05)
[2022-07-15] MEDS: ATORVASTATIN 20 MG TABLET 40 MG PO (20:07)
[2022-07-15] MEDS: INSULIN GLARGINE 100 UNIT/ML 3ML PEN 30 UNIT SUBCUT (20:12)
[2022-07-15] MEDS: METOPROLOL IR 50 MG TABLET PO (21:51)
--- NOTE | 2022-07-16 | DI.US.S_ITS ---
PROCEDURE: US RENAL COMPLETE INDICATIONS: DIEGO TECHNIQUE: Real-time scanning was performed of the kidneys and bladder, with image documentation. COMPARISON: None. FINDINGS: Technically difficult. Kidneys: Kidneys are normal in size. Right kidney measures 11.7 cm long; left kidney measures 11.8 cm long. Right renal cortical thickness is 1.3 cm; left renal cortical thickness is 1.7 cm. Renal cortical echotexture is within normal limits. No hydronephrosis or nephrolithiasis. No suspicious solid mass lesions. Bladder: Decompressed with Dhaliwal catheter. Ureteral jets are not seen. Miscellaneous: No free pelvic fluid. IMPRESSION: Exam is technically difficult. No hydronephrosis. Dictated by: Rakesh Rhodes M.D. on 07/16/2022 at 10:50 Approved by: Rakesh Rhodes M.D. on 07/16/2022 at 10:52
[2022-07-16] MEDS: ACETAMINOPHEN 325 MG TABLET 650 MG PO ×3 (01:32→14:34)
[2022-07-16] MEDS: hydrOXYzine pamoate 25 MG CAPSULE PO ×3 (01:32→14:34)
[2022-07-16] MEDS: diphenhydrAMINE 25 MG TABLET PO ×4 (01:32→21:18)
[2022-07-16 05:58] LABS: BUN Creatinine Ratio 33.1 (6-22); Blood Urea Nitrogen 58 mg/dL (7-17); Calcium 7.4 mg/dL (8.4-10.2); Carbon Dioxide 20 mmol/L (22-32); Chloride 106 mmol/L (98-107); Estimated Glomerular Filt Rate 29 mL/min (>60); Glucose 153 mg/dL (80-110); HEMOLYSIS < 15 (0-50); Magnesium 1.4 mg/dL (1.6-2.3); Potassium 4.7 mmol/L (3.4-5.1); Sodium 135 mmol/L (137-145)
[2022-07-16] MEDS: PANTOPRAZOLE DR 40 MG TABLET 20 MG PO ×2 (05:59→21:23)
[2022-07-16 06:02] LABS: Basophils Absolute Auto 0 /uL (0-100); Basophils Percent Auto 0.8 % (0-2); Eosinophils Absolute Auto 100 /uL (0-450); Eosinophils Percent Auto 2.5 % (2-4); Hematocrit 28.1 % (36-46); Hemoglobin 8.7 g/dL (12.0-16.0); Lymphocytes Absolute Auto 700 /uL (1100-4500); Lymphocytes Percent Auto 16.9 % (25-40); Mean Corpuscular Hemoglobin 23.9 PG (26-34); Monocytes Absolute Auto 700 /uL (0-900); Monocytes Percent Auto 16.7 % (3-14); Neutrophils Absolute Auto 2600 /uL (1500-7000); Neutrophils Percent Auto 63.1 % (50-75); Platelet Count 219 X10^3/uL (150-400); Red Blood Cell Count 3.65 X10^6/uL (4.0-5.2); Red Cell Distribution Width 20.6 % (11.6-14.8); White Blood Cell Count 4.2 X10^3/uL (4.5-11.0)
[2022-07-16 06:05] LABS: Add Manual Diff / Slide Review SLIDE REVIEW
[2022-07-16 06:52] LABS: Anisocytosis 1+
[2022-07-16 08:45] VITALS: BP 143/45; PULSE 57; RESP 18; TEMP 36.7; O2SAT 100
[2022-07-16] MEDS: INSULIN LISPRO 100 UNIT/ML 3ML VIAL SUBCUT ×2 (08:45→16:37)
[2022-07-16] MEDS: PRIMIDONE 50 MG TABLET PO (08:53)
[2022-07-16] MEDS: DIGOXIN 0.125 MG TABLET PO (08:53)
[2022-07-16] MEDS: cefUROXime 250 MG TABLET 500 MG PO ×2 (08:54→21:09)
[2022-07-16] MEDS: DOXYCYCLINE HYCLATE 100 MG TABLET PO ×2 (08:54→21:08)
[2022-07-16] MEDS: RIVAROXABAN 10 MG TABLET 20 MG PO (08:54)
[2022-07-16] MEDS: MAGNESIUM OXIDE 400 MG TABLET PO (09:28)
[2022-07-16] MEDS: MAGNESIUM CHLORIDE 64 MG TABLET 128 MG PO (09:28)
[2022-07-16] MEDS: TORSEMIDE 10 MG TABLET 20 MG PO ×2 (09:30→16:32)
[2022-07-16 10:23] LABS: Digoxin 1.7 ng/mL (0.8-2.0)
[2022-07-16 10:35] LABS: COVID19 -Nasal RAPID Negative (Negative)
[2022-07-16] MEDS: METOPROLOL IR 50 MG TABLET 150 MG PO (10:42)
--- NOTE | 2022-07-16 12:32 | CM.DPNOTE ---
Called and spoke to Bethany at [facility] for [facility] picker on Sat.m 07/17 at 1000. Sidra Santos CM Assist.
--- NOTE | 2022-07-16 13:01 | CM.DPC ---
DCP Cont: Patient was to be discharged today to [facility], with BLS garbage pick up man scheduled for 11:00. Hospitalist then decided to do a renal ultrasound. Went ahead and cancelled discharge for today, [facility] was called and scheduled to have patient picked up tomorrow at 10:00. Have been updating Tara at [facility]. She is aware that patient is to be picked up here tomorrow at 10:00. BLS form is already completed and hospitalist signed. Patient and DPOA are aware of potential cost of transport. At this time, will plan on patient discharging tomorrow to [facility] via BLS. P: DCP to continue to follow. At this time, plan is for patient to go to [facility] tomorrow via BLS if medically stable. Debra Correa RN/Production Counter
--- NOTE | 2022-07-16 14:27 | PM.PN.1 ---
Subjective Subjective Interval history: 77-year-old female with class 3 obesity with BMI of 52.8, type 2 diabetes, insulin-dependent, hypertension, CAD with prior LAD stent, chronic systolic CHF, permanent AFib chronically anticoagulated on Xarelto, and chronic pruritus who was admitted with bilateral lower extremity cellulitis. Hospital course has been complicated by DIEGO. Patient was slated for discharge today. However her discharge was delayed secondary to the need to replete low magnesium levels and to obtain a renal ultrasound to rule out obstructive process. She complains of leg cramps presently. She also complains of persistent itching. She denies any other complaints. Exam Vital Signs (past 8 hours): - 07/16/22 08:45 Temperature 98.1 F Pulse Rate 57 L Respiratory Rate 18 Blood Pressure 143/45 H Pulse Oximetry 100 Oxygen Flow Rate 0 Oxygen Delivery Method Room Air Oxygen Flow Rate 0 Narrative Exam Narrative: GEN: Pleasant elderly female, Alert and oriented x 3, NAD HEENT:NC, Face symmetric CHEST: Respiratory excursions symmetric, CTAB CV: RRR, no M/R/G ABD: Soft, obese, NT/ND, BT present in all 4 quadrants, body habitus limits exam EXTR: warm, well perfused, right upper extremity reveals edema and bruising at the site of previous IV infiltration, bilateral lower extremity 3 to 4+ nonpitting edema with chronic venous stasis changes and scaly skin noted. SKIN: warm and dry, no rash, multiple areas of scabbing from skin picking NEURO: Alert and oriented x 3, nonfocal Objective Labs 07/16/22 05:17 07/16/22 05:17 Labs: Laboratory Results - last 24 hr 07/16/22 07/16/22 07/16/22 05:17 05:17 09:45 WBC 4.2 L RBC 3.65 L Hgb 8.7 L Hct 28.1 L MCV 77.0 L MCH 23.9 L MCHC 31.0 RDW 20.6 H Plt Count 219 Neut % (Auto) 63.1 Lymph % (Auto) 16.9 L [place] % (Auto) 16.7 H Eos % (Auto) 2.5 Baso % (Auto) 0.8 Neut # (Auto) 2600 Lymph # (Auto) 700 L [place] # (Auto) 700 Eos # (Auto) 100 Baso # (Auto) 0 RBC Morphology Not Reportable Anisocytosis 1+ H Sodium 135 L Potassium 4.7 Chloride 106 Carbon Dioxide 20 L BUN 58 H Creatinine 1.75 H Estimated GFR 29 L BUN/Creatinine Ratio 33.1 H Glucose 153 H Calcium 7.4 L Magnesium 1.4 L Digoxin 1.7 SARS-CoV-2 (PCR) 07/16/22 10:10 WBC RBC Hgb Hct MCV MCH MCHC RDW Plt Count Neut % (Auto) Lymph % (Auto) [place] % (Auto) Eos % (Auto) Baso % (Auto) Neut # (Auto) Lymph # (Auto) [place] # (Auto) Eos # (Auto) Baso # (Auto) RBC Morphology Anisocytosis Sodium Potassium Chloride Carbon Dioxide BUN Creatinine Estimated GFR BUN/Creatinine Ratio Glucose Calcium Magnesium Digoxin SARS-CoV-2 (PCR) Negative [facility] Medical History Abnormal Pap smear of cervix (~1999) Anemia Ankle pain Anticoagulated B12 deficiency Cardiac arrhythmia (~1979) Cellulitis of both lower extremities Cervical cancer (~1999) Chicken pox Chronic pruritus Chronic venous stasis CKD (chronic kidney disease) Coronary artery disease (~2007) Diabetes mellitus Eczema Endometriosis (~1999) Foot pain GERD (gastroesophageal reflux disease) (~1962) GI bleeding Heart failure with reduced ejection fraction Hemorrhoid Hyperlipidemia (~1983) Hypertension (~1959) Myocardial infarction (~09/2014) Osteoarthritis Pulmonary embolism (~2014) Shoulder pain Venous insufficiency Surgical History Anesthesia History of angioplasty History of bladder suspension procedure Status post hysterectomy Status post laparoscopic cholecystectomy Surgical procedure planned (~2014) Family History Mother Cervical cancer Father Prostate cancer Social History household members: none pets and animals: No education level: college occupational status: other tatianna/oriental orthodox: Confucianism travel history: other leisure activities: other other: Watching tv seatbelt use: always water heater temp set < 120 deg: Yes working smoke detector in home: Yes fire extinguisher in home: No carbon monox detector in home: Yes firearms in home: No Smoking Status: Never smoker alcohol intake: never substance use type: does not use during the past year weight has: remained stable well-balanced diet: about half the time daily servings fruits/ve-4 caffeine: No eating out: 1-3 times/week Type(s) of exercise: walking and other duration: 15-30 minutes/day Assessment & Plan Assessment & Plan narrative: 1. Bilateral lower extremity cellulitis Wound cultures were positive for Proteus and Enterobacter. She is covered with oral cefuroxime and doxycycline. Plan to continue an additional 5 days of therapy. 2. Acute on chronic systolic congestive heart failure Currently, torsemide and spironolactone are being held secondary to DIEGO. Plan to resume once her creatinine has improved. 3. DIEGO Creatinine is somewhat worse today at 1.75. Renal ultrasound done which reveals no evidence of obstruction though it was a technically difficult study. Holding metformin, torsemide, spironolactone and lisinopril 4. Coronary artery disease Stable 5. Hypertension Blood pressures are reasonable today. Continues on metoprolol. Holding lisinopril and spironolactone as noted 6. Diabetes mellitus type 2 Blood sugars have been 165 or below. Continue fingersticks and sliding scale. Holding metformin with her DIEGO. Continue usual insulin dosing. 7. 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 Essential tremor Continue primidone Code status DNR Prophylaxis On Xarelto Disposition Likely discharge to senior care facility for rehab tomorrow. Time Spent With Patient Critical Care time: I spent a total of [] minutes of critical care time on this patient's care today; this time is exclusive of procedural time.
--- NOTE | 2022-07-16 14:35 | PT.IPTN ---
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 (07/09/22) Physical Therapy Treatment Note M2 PT-IP Current Condition Start: 07/12/22 13:59 Freq: NEEDED Status: Active Protocol: Document 07/15/22 14:24 SP (Rec: 07/15/22 17:42 SP [id number]) Physical Therapy Current Condition Current Condition Evaluation Date 07/12/22 Treatment Diagnosis Leg wounds,weakness,hx falls Onset Date 07/09/22 M3 PT-IP Subjective Start: 07/12/22 13:59 Freq: NEEDED Status: Active Protocol: Document 07/16/22 15:23 TS (Rec: 07/16/22 15:56 TS [id number]) Subjective Physical Therapy Visit Type Type Treatment Note Visit Start Time 14:35 Visit Stop Time 15:18 Total Visit Minutes 43 Notes PT Aide and granddaughter assisted with mobility. Physical Therapy Visit Comments Patient Comments Pt continues to report itchiness and requests pericare before session. Therapy Pain Assessment Pain When Pain Assessed During Mobility Pain Present Pain Present Denied Pain Location Generalized Pain Behaviors Calling Out,Facial Grimacing, Wincing Pain Management Techniques Distraction,Elevation, Modification of Treatment,Re- positioning,Timing of Activity with Medications M4 PT-IP Mobility and Gait Start: 07/12/22 13:59 Freq: NEEDED Status: Active Protocol: Document 07/16/22 15:23 TS (Rec: 07/16/22 15:56 TS [id number]) PT-Bed Mobility Assessment Rolling Type of Rolling Log Rolling Level of Assist Maximal Assistance Supine to Sit Supine to Sit Maximum Assistance,Total Assistance,2 Person Assistance ,Head of Bed Elevated,Bedrails Sit to Supine Sit to Supine Maximum Assistance,2 Person Assistance Scooting Scooting to Edge of Bed Dependent Scooting Up and Down in Bed Dependent PT-Transfer Assessment Comments Mobility Comments Pt found resting in bed, after encouragment from [employer] and granddaughter she was agreeable to session. Pt performed log roll x2 with bed flat and required cues for handrail assist for back wash. She performed supine to sit, HOB 45D, w/MaxA x3 for uprighting trunk and LE's over the EOB, pt calling out due to pain from leg wounds. Once seated she required handheld assist Leroy x2 for maintaining upright position, progressing to SBA for sitting . After ~5 mins, she returned to supine, requiring MaxA x2 for scooting up to HOB and for straghtening position. Pt was left with tray and calllight nearby, RN bringing pain meds. Gait Assessment Comments Gait Comments pt unable PT-Balance Assessment Sitting Balance and Reactions Static Sitting Balance Ability Poor Dynamic Sitting Balance Ability Poor Comments Other Balance Tests/Deviations/Treatment Pt progressed from handheld : assist bilaterally Leroy to SBA . M5 PT-IP Objective Assessments Start: 07/12/22 13:59 Freq: NEEDED Status: Active Protocol: Document 07/12/22 14:31 AMB (Rec: 07/12/22 14:57 AMB [id number]) Strength Lower Extremity Strength Assessment Bilaterally Impaired Hip 2 Knee 3 Ankle 2 Comments Strength Comments pt with limited range through gravity at hips and knee. Did appear to have 3/5 strength at quads. M6 PT-IP Treatment Start: 07/12/22 13:59 Freq: NEEDED Status: Active Protocol: Document 07/16/22 15:23 TS (Rec: 07/16/22 15:56 TS [id number]) Physical Therapy Treatment Education Education Provided Safety M7 PT-IP Assessment and Plan Start: 07/12/22 13:59 Freq: NEEDED Status: Active Protocol: Document 07/16/22 15:23 TS (Rec: 07/16/22 15:56 TS [id number]) PT Summary Assessment and Plan Potential Rehabilitation Potential Fair Status of Condition at Evaluation Evolving Summary Impairments Pain,ROM,Strength,Balance,Bed Mobility,Transfers,Gait, Activity Tolerance Progress Towards Goals Slow Progress due to Pain,Slow Progress due to Activity Tolerance Assessment Summary Pt continues to require MaxA x2-3 persons for bed mobility. She c/o constant itching and pain in her legs from wounds throughout treatment but remains to good-humored and friendly. PT recommends SNF to improve strength, bed and functional mobility. Goals Bed Mobility Goal Minimal Assistance Transfer Goal Minimal Assistance Gait Goal Minimal Assistance Gait Distance 50' Days to Meet Goals 7 Treatment Plan Physical Therapy Treatment Plan Bed Mobility Training,Transfer Training,Gait Training, Therapeutic Exercise,Balance Retraining,Neuromuscular Re-ed Other Recommendations and Next Treatment bed mob, bed exercises, Sit Focus EOB, STS if able w/ FWW. Recommendations To Nursing Amount of Assist Needed 3 or More Person Assist, Mechanical Lift Discharge Recommendations PT Discharge Recommendations SNF Rehab Transportation Needs at Discharge Wheelchair/Cabulance
[2022-07-16] MEDS: OXYCODONE IR 5 MG TABLET 2.5 MG PO (15:05)
[2022-07-16 16:39] VITALS: BP 130/46; PULSE 55; RESP 18; TEMP 36.3; O2SAT 100
[2022-07-16] MEDS: METOPROLOL IR 50 MG TABLET PO (21:09)
[2022-07-16] MEDS: PRIMIDONE 50 MG TABLET 100 MG PO (21:09)
[2022-07-16] MEDS: ATORVASTATIN 20 MG TABLET 40 MG PO (21:09)
[2022-07-16] MEDS: INSULIN GLARGINE 100 UNIT/ML 3ML PEN 30 UNIT SUBCUT (21:13)
[2022-07-16 21:22] VITALS: BP 183/86; PULSE 55; RESP 17; TEMP 35.8; O2SAT 99
[2022-07-17] MEDS: ACETAMINOPHEN 325 MG TABLET 650 MG PO (01:17)
[2022-07-17] MEDS: diphenhydrAMINE 25 MG TABLET PO (05:51)
[2022-07-17 06:13] VITALS: BP 140/40; PULSE 50; RESP 18; TEMP 35.9; O2SAT 100
[2022-07-17] MEDS: PANTOPRAZOLE DR 40 MG TABLET 20 MG PO (06:21)
[2022-07-17 09:00] VITALS: BP 139/50; PULSE 57; RESP 16; TEMP 35.8; O2SAT 98
[2022-07-17 09:15] LABS: BUN Creatinine Ratio 34.9 (6-22); Blood Urea Nitrogen 59 mg/dL (7-17); Calcium 7.6 mg/dL (8.4-10.2); Carbon Dioxide 18 mmol/L (22-32); Chloride 107 mmol/L (98-107); Estimated Glomerular Filt Rate 31 mL/min (>60); Glucose 114 mg/dL (80-110); HEMOLYSIS < 15 (0-50); Magnesium 1.4 mg/dL (1.6-2.3); Potassium 4.3 mmol/L (3.4-5.1); Sodium 136 mmol/L (137-145)
--- NOTE | 2022-07-17 09:31 | CM.DPC ---
Addendum entered by Debra Correa R.N. 07/17/22 11:36: Patient is to be picked up at 1300, CHAYO Brewster, is aware of picker and sorter load and unload time. She had called to inquire. Have updated Karen at [facility]. Med sheets were completed and signed, faxed them, PASSR, and COVID results from yesterday to [facility] at Yany's number. Left note for hospitalist to complete DC Summary as soon as she is able, and will fax this over as well. Original Note: DCP Cont: Went ahead and called [facility] to change time of picker and sorter load and unload to later today, for orders are not yet in, hospitalist is awaiting lab results. Printed out med sheets for her to sign. Met with patient and she is aware that she is supposed to go to [facility] [address] [facility] today. Updated Karen at [facility] about change of picker and sorter load and unload time. She wants orders and PASSR faxed to her at: [phone]. Discharge today will depend upon lab results. P: DCP to continue to follow. Plan is for patient to go to [facility] today with picker and sorter load and unload at 1300, as long as labs are stable. Debra Correa RN/Airplane Pilot Helper
[2022-07-17] MEDS: PRIMIDONE 50 MG TABLET PO (09:48)
[2022-07-17] MEDS: DOXYCYCLINE HYCLATE 100 MG TABLET PO (09:48)
[2022-07-17] MEDS: cefUROXime 250 MG TABLET 500 MG PO (09:48)
[2022-07-17] MEDS: RIVAROXABAN 10 MG TABLET 20 MG PO (09:48)
[2022-07-17] MEDS: MAGNESIUM OXIDE 400 MG TABLET PO (09:48)
[2022-07-17] MEDS: TORSEMIDE 10 MG TABLET 20 MG PO (09:49)
[2022-07-17] MEDS: hydrOXYzine pamoate 25 MG CAPSULE PO (09:59)
[2022-07-17 11:25] VITALS: BP 142/53; PULSE 58
[2022-07-17] MEDS: DIGOXIN 0.125 MG TABLET PO (11:25)
[2022-07-17] MEDS: MAGNESIUM CHLORIDE 64 MG TABLET 128 MG PO (11:28)
--- NOTE | 2022-07-17 12:14 | P.DS_ITS ---
History of Present Illness History of Present Illness Chief complaint: Bilateral leg wounds Narrative: Per history and physical: Dorcas Clement is a 77 y.o. female with diabetes type 2 currently on insulin, hypertension, CAD and a past history of LAD with stent, heart failure with a reduced ejection fraction, permanent atrial fibrillation anticoagulated on rivaroxaban, chronic puritis presented to the ED with bilateral lower extremity swelling, weeping and pain. Patient states that she itches all the time, this time she woke up scratching her legs. She denies fever or chills, she has had sinus headaches, denies n/v, denies urinary incontinence, but has urgency, denies diarrhea or constipation. She has an essential tremor for which she takes primadone. Due to suspected sepsis, ED ordered a chest xray, which did not report any acute abnormalities.? She is afebrile, blood pressure 148/88 heart rate 102 respiratory rate 21 oxygen saturation of 99% on room air she weighs 99.8 kg with a BMI of 41.6.? White count is normal she is mildly anemic with a hemoglobin and hematocrit 9.1 and 29.2 respectively with a mildly abnormal smear sodium 134 bicarb 20 BUN 28 normal creatinine glucose is 227 A1c is pending calcium is 7.9 alk-phos is 242 [place] [address] albumin is 3.2 and lipase is elevated at 675.? COVID-19 PCR is negative.? She was administered a one time dose of IV lasix in the ED and initiated on IV vancomycin for bilateral lower extremity cellulitis. She sees Dr. 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 At that time, her LEVF was estimated to be 35 =/_ 5% w/ moderate global hypokenisis of the left ventricle. Discharge Providers Provider Date of admission: 07/09/22 22:59 Discharge Date: 07/17/22 Primary care physician: Idania Bruno DO Consults: 07/12/22 13:21 Consult to Physical Therapy Evaluate & Treat Comment: Establish bed exercises for lower extremities Physician Instructions: Evaluate and Treat Discharge provider: Lydia Lanier MD Summary Hospital Course Discharge Diagnosis: Bilateral lower extremity cellulitis, positive wound cultures for Proteus and Enterobacter, improving Chronic venous stasis changes and venous insufficiency ulcer Acute on chronic systolic congestive heart failure, improving DIEGO, improving Coronary artery disease with prior LAD stent, chronic, stable Hypertension, chronic, stable Diabetes mellitus type 2, chronic, stable 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 She was initially placed on Rocephin and vancomycin. MRSA swabs were negative and vancomycin was discontinued. IV access was lost on July 15 and she was transitioned to cefuroxime and doxycycline. On the date of discharge, doxycycline is being discontinued and she will complete her final days of cefuroxime monotherapy. Overall, cellulitis was improving but unfortunately bin diana continued to have significant itching infrequently rubs her legs against the hospital bed which is cause ongoing injury/ulceration to her posterior calves. Patient did develop DIEGO during her hospitalization. Medications were held inclusive of metformin, torsemide, spironolactone, and losartan. On the date of discharge, creatinine was improving. Although she does have some generalized edema, plan to hold her torsemide for an additional 24-48 hours pending a follow-up laboratory study on July 19. Plan to add back her torsemide, losartan, metformin, and spironolactone and staggered fashion. With regard to her CHF, her exacerbation was treated and improved. At the time of discharge, medications will be resumed as noted above. Patient is noted to have significant excoriations across her chest, shoulders, legs, and areas of obvious picking injury to her cheek and shoulder. Suspect she has neurodermatitis she complains of constant itching and scratches herself at night from the pruritus. Discussed consideration of adding an SSRI with the patient. She would like to discuss it further with her granddaughter who is a nurse and POA. Recommendation is placed in her discharge for further consideration. Patient is discharged in stable condition. Status at Discharge Overall status at discharge: patient is progressing back to baseline Time Spent with Patient Time spent: Greater than 30 minutes Exam Vital Signs (past 8 hours): - 07/17/22 06:13 07/17/22 09:00 07/17/22 11:25 Temperature 96.7 F L 96.5 F L Pulse Rate 50 L 57 L 58 L Respiratory Rate 18 16 Blood Pressure 140/40 L 139/50 L 142/53 H Pulse Oximetry 100 98 Oxygen Delivery Method Room Air Oxygen Flow Rate 0 Narrative Exam Narrative: GEN:? Pleasant elderly female, Alert and oriented x 3, NAD HEENT:NC, Face symmetric CHEST: Respiratory excursions symmetric, CTAB CV: RRR, no M/R/G ABD: Soft, obese, NT/ND, BT present in all 4 quadrants, body habitus limits exam EXTR: warm, well perfused, right upper extremity reveals edema and bruising at the site of previous IV infiltration, left upper extremity is also edematous with bruising at the site of prior IV, bilateral lower extremity 3+ nonpitting edema with chronic venous stasis changes and scaly skin noted. SKIN: warm and dry, no rash, multiple areas of scabbing from skin picking NEURO: Alert and oriented x 3, nonfocal Objective Labs 07/16/22 05:17 07/17/22 08:35 Labs: Laboratory Results - last 24 hr 07/17/22 08:35 Sodium 136 L Potassium 4.3 Chloride 107 Carbon Dioxide 18 L BUN 59 H Creatinine 1.69 H Estimated GFR 31 L BUN/Creatinine Ratio 34.9 H Glucose 114 H Calcium 7.6 L Magnesium 1.4 L PFSH Medical History Abnormal Pap smear of cervix (~1999) Anemia Ankle pain Anticoagulated B12 deficiency Cardiac arrhythmia (~1979) Cellulitis of both lower extremities Cervical cancer (~1999) Chicken pox Chronic pruritus Chronic venous stasis CKD (chronic kidney disease) Coronary artery disease (~2007) Diabetes mellitus Eczema Endometriosis (~1999) Foot pain GERD (gastroesophageal reflux disease) (~1962) GI bleeding Heart failure with reduced ejection fraction Hemorrhoid Hyperlipidemia (~1983) Hypertension (~1959) Myocardial infarction (~09/2014) Osteoarthritis Pulmonary embolism (~2014) Shoulder pain Venous insufficiency Surgical History Anesthesia History of angioplasty History of bladder suspension procedure Status post hysterectomy Status post laparoscopic cholecystectomy Surgical procedure planned (~2014) Family History Mother Cervical cancer Father Prostate cancer Social History household members: none pets and animals: No education level: college occupational status: other tatianna/mu-ism: Sikhism travel history: other leisure activities: other other: Watching tv seatbelt use: always water heater temp set < 120 deg: Yes working smoke detector in home: Yes fire extinguisher in home: No carbon monox detector in home: Yes firearms in home: No Smoking Status: Never smoker alcohol intake: never substance use type: does not use during the past year weight has: remained stable well-balanced diet: about half the time daily servings fruits/ve-4 caffeine: No eating out: 1-3 times/week Type(s) of exercise: walking and other duration: 15-30 minutes/day Discharge Plan Discharge Plan Patient Disposition: SNF Transfer to: [facility] Under care of provider: Facility MD Provider Discharge Comment: Please obtain a f/u BMP and magnesium on Tuesday, 07/19. If Creatinine is improving (1.69 on 07/16) and as long as SBP>120, restart torsemide and losartan at prior doses. Wait an additional 48 hours and then resume metformin and spironolactone at prior doses. FSBG QAC and HS, sliding scale insulin per facility protocol Consider addition of an SSRI for neurodermatitis Discharge orders & Medications Prescriptions: New magnesium oxide 400 mg (241.3 mg magnesium) Tablet 400 mg PO DAILY Qty: 30 0RF insulin lispro [Humalog U-100 Insulin] 100 unit/mL Solution 1 unit SUBCUT ACHS Qty: 10 0RF Rx Instructions: Per Sliding scale protocol insulin glargine [Lantus Solostar U-100 Insulin] 100 unit/mL (3 mL) Insulin Pen 30 unit SUBCUT BEDTIME Qty: 15 0RF cefuroxime axetil 250 mg Tablet 500 mg PO BID Qty: 20 0RF metoprolol tartrate 50 mg Tablet 150 mg PO 1000 Qty: 90 0RF metoprolol tartrate 50 mg Tablet 50 mg PO 2200 Qty: 30 0RF Continued Women's 50 Plus Multivitamin 400 mcg-500 mg calcium-20 mcg tablet 1 tab PO DAILY Qty: 30 0RF omeprazole 20 mg tablet,delayed release (DR/EC) 20 mg PO BID Qty: 60 0RF levocetirizine [Xyzal] 5 mg tablet 5 mg PO DAILY PRN (Reason: allergy symptoms) Qty: 30 0RF triamcinolone acetonide 0.025 % cream 1 applic topical BID Qty: 15 0RF Rx Instructions: Do not use more than 2 weeks fluticasone propionate [Flonase Allergy Relief] 50 mcg/actuation spray,suspension 1 spray intranasal BID Qty: 16 2RF Rx Instructions: administer into each nostril metoprolol succinate [Toprol XL] 50 mg tablet extended release 24 hr See Rx Instructions PO SEE INSTRUCTIONS Qty: 270 3RF Dose Instruction: 2 1/2 tabs in the morning and 1 tab at night PO SEE INSTRUCTIONS; Rx Instructions: 125 mg AM, 50 mg PM acetaminophen 500 MG tablet 1,000 mg PO PRN PRN (Reason: Pain (Scale Score 1-3)) Qty: 0 aspirin 81 mg tablet,delayed release (DR/EC) 81 mg PO QDAY Qty: 90 3RF hydroxyzine HCl 25 mg tablet 25 mg PO BID PRN (Reason: itching) Qty: 180 3RF primidone [Mysoline] 50 mg tablet See Rx Instructions PO BID Qty: 270 3RF Dose Instruction: Take 1 tablet in the morning and two tablets at night PO BID; Rx Instructions: Take 1 tablet in the morning and two tablets at night Xarelto 20 mg tablet 20 mg PO QDAY Qty: 90 3RF rosuvastatin 20 mg tablet 20 mg PO HS Qty: 90 3RF digoxin 125 mcg (0.125 mg) tablet 125 mcg PO DAILY Qty: 10 0RF amlodipine 5 mg tablet 5 mg PO DAILY nystatin 100,000 unit/gram powder 1 applic topical BID Qty: 60 2RF Rx Instructions: Apply to affected areas (chest & abdomen) twice daily. vitamin B complex Capsule 1 cap PO DAILY Disabled Parking Permit 1 unit 1 ea miscellaneous CONT Discontinued metformin 1,000 mg tablet 1,000 mg PO BIDCC Qty: 180 3RF torsemide 10 mg Tablet 10 mg PO BID diphenhydramine HCl [Allergy (diphenhydramine)] 25 mg Capsule 25 mg PO TID PRN (Reason: Allergy Symptoms) spironolactone 50 mg Tablet 50 mg PO DAILY insulin glargine [Lantus U-100 Insulin] 100 unit/mL solution 19 unit SUBCUT HS losartan 25 mg tablet 50 mg PO DAILY No Action (DME) Lancets 0 .Route .MEDSUPPLY Qty: 360 3RF Dose Instruction: As directed Rx Instructions: As directed (DME) Syringes: Ultra Fine Insulin Syringe w/Needle 0 .Route .MEDSUPPLY Qty: 100 3RF Dose Instruction: As directed Rx Instructions: Use to inject lantus daily at bedtime (DME) True Metrix Glucose: Test Strips 0 .Route .MEDSUPPLY Qty: 360 3RF Dose Instruction: As directed Rx Instructions: Use to check blood sugar 4 times daily. Follow up/Referrals: Idania Bruno DO [Primary Care Provider] - Diet/Activity/Treatments Diet: Carb-consistent/Diabetic Liquid consistency: Normal/Thin Food texture: Regular Activity: As [facility] Rehab type: Physical therapy and Occupational therapy Visit Report/Discharge Packet Stand Alone Forms: Patient Portal/API Discharge Data Primary Care Provider: Idania Bruno
[2022-07-17] MEDS: INSULIN LISPRO 100 UNIT/ML 3ML VIAL SUBCUT (12:18)
--- NOTE | 2022-07-17 14:12 | PC.NURSE ---
Pt discharged to [facility] at 1330 by BLS, escorted off floor in stretcher accompanied by ambulance staff. IV removed, discharge information included in packet for the facility. Report called to Anila ([phone]), questions answered and orders clarified over the phone. Patient left with all belongings.
== END 2022-07-17 14:16 | DRG 602 ==
LOC: ED 19:21 → AC 23:00
PROVIDERS: Emergency Medicine; Family Medicine; Internal Medicine; Neuromusculoskeletal Medicine, Sports Medicine; Admitting Provider Nurse Practitioner Family; Emergency Provider Emergency Medicine; PCP Family Medicine; Referring Provider Emergency Medicine; Visit Provider Nurse Practitioner Family
DX: L03.116 Cellulitis of left lower limb (principal); I50.23 Acute on chronic systolic (congestive) heart failure; I48.21 Permanent atrial fibrillation; N17.9 Acute kidney failure, unspecified; I11.0 Hypertensive heart disease with heart failure; L03.115 Cellulitis of right lower limb; I25.10 Atherosclerotic heart disease of native coronary artery without angina pectoris; E11.9 Type 2 diabetes mellitus without complications; G25.0 Essential tremor; B96.4 Proteus (mirabilis) (morganii) as the cause of diseases classified elsewhere; B96.89 Other specified bacterial agents as the cause of diseases classified elsewhere; L28.0 Lichen simplex chronicus; K21.9 Gastro-esophageal reflux disease without esophagitis; Z79.4 Long term (current) use of insulin; Z95.5 Presence of coronary angioplasty implant and graft; Z79.01 Long term (current) use of anticoagulants; Z20.822 Contact with and (suspected) exposure to COVID-19; Z79.84 Long term (current) use of oral hypoglycemic drugs; Z66 Do not resuscitate; Z23 Encounter for immunization
CPT/HCPCS: 36415; 71045; 76770; 80048; 80053; 80162; 80202; 82550; 82962; 83036; 83605; 83690; 83735; 83880; 84145; 84443; 84484; 85007; 85025; 85610; 85730; 87040; 87070; 87075; 87077; 87186; 87205; 87635; 90471; 90662; 93306; 93971; 96365; 96375; 97162; 97530; 99284; C9803; J0696; J1642; J1815; J1940; J1956